=== PATIENT | female | born 1940 | race Caucasian/White ===

== ENCOUNTER → 2022-11-26 | Outpatient (CLI) | payer MEDICARE, SELFPAY ==
--- NOTE | 2022-11-26 10:00 | ART_ITS ---
Reason For Study: PAD Procedure A bilateral lower extremity continuous wave Doppler with analog waveform analysis,segmental pressures,and ankle brachial indexes with exercise. Left Segmental Pressures Left brachial= 143mmHg. Left posterior tibial artery = 163mmHg. Left dorsalis pedis artery = 158mmHg. Left digit = 100 mmHg. The left dorsalis pedis waveforms are triphasic. The left posterior tibial artery waveforms are triphasic. Right Segmental Pressures Right brachial= 139mmHg. Right posterior tibial artery = 175mmHg. Right dorsalis pedis artery = 141mmHg. Right digit = 99 mmHg. The right dorsalis pedis waveforms are triphasic. The right posterior tibial artery waveforms are triphasic. Indices The right ankle brachial index by the dorsalis pedis is 0.99. The right ankle brachial index by the posterior tibial artery is 1.22. The right digital-brachial index is 0.69. The left ankle brachial index by the dorsalis pedis is 1.10. The left ankle brachial index by the posterior tibial artery is 1.14. The left digital-brachial index is 0.70. VL/Lower Ext Art Exam w/ Exercise Interpretation Summary Normal at rest with bilateral triphasic flow and NADIYA 1.22 and 1.14. Ordering Physician: Miranda Thompson Referring Physician: Miranda Thompson M.D. Performed By: Heide Saini RVT
== END | disposition home or self-care (01) ==
PROVIDERS: PCP Internal Medicine; Referring Provider Internal Medicine; Visit Provider Internal Medicine
DX: I73.9 Peripheral vascular disease, unspecified (principal)
CPT/HCPCS: 93924

== ENCOUNTER → 2025-01-09 | Outpatient (CLI) | payer MEDICARE, SELFPAY ==
[2025-01-09 15:08] LABS: Absolute Lymphocyte Count 2.16 X10^3/uL (0.83-4.51); Absolute Neutrophil Count 4.6 X10^3/uL (2.0-7.7); Basophil# 0.05 X10^3/uL; Basophil% 0.7 % (0-1); Eosinophil# 0.11 X10^3/uL; Eosinophils% 1.5 % (0-5); Hematocrit 41.2 % (37-47); Hemoglobin 13.6 g/dL (12.0-15.0); Lymphocyte # 2.16 X10^3/ul (0.83-4.51); Lymphocyte % 29.5 % (19-41); Mean Corpuscular Hgb 29.6 pg (27.0-32.0); Mean Corpuscular Volume 89.8 fL (81-99); Mean Platelet Vol. 11.2 fl (6.2-12.0); Monocyte# 0.36 X10^3/uL; Monocyte% 4.9 % (0-10); NRBC Flagged by Analyzer 0 % (0-5); Neutrophil # 4.62 X10^3/uL (2.7-7.7); Neutrophil % 63.1 % (47-70); Platelet Count 209 K/mm3 (150-450); RBC Distribution Width SD 45.9 fl (35.1-43.9); Red Blood Count 4.59 M/mm3 (4.2-5.4); White Blood Count 7.3 K/mm3 (4.4-11.0)
[2025-01-09 18:57] LABS: ALB/GLOB Ratio 1.4 RATIO (0.9-2.4); AST(SGOT) 20 U/L (<=31); Alanine Aminotransfer ALT/SGPT 17 U/L (<=34); Albumin, Serum 4.5 g/dL (3.4-4.8); Alkaline Phosphatase 103 U/L (35-104); Anion Gap 14 (5-15); BUN 20 mg/dL (4-19); BUN/Creat Ratio 28.6 RATIO (10-20); Calcium,Total 9.9 mg/dL (7.6-11.0); Chloride 101 mmol/L (98-108); Cholesterol 185 mg/dL (<=200); EST Glomerular Filtration Rate 86 (>60); Globulin 3.3 g/dL (2.2-4.2); Glucose 102 mg/dL (70-99); High Density Lipoprotein 54 mg/dL; Low Density Lipoprotein Calc. 110 mg/dL; Potassium 4.1 mmol/L (3.3-5.1); Protein, Total 7.9 g/dL (5.9-8.4); Sodium Level 138 mmol/L (133-145); Total Bilirubin 0.89 mg/dL (0.00-1.30); Triglycerides 107 mg/dL; Very Low Density Lipoprotein 21 mg/dL (5-40); cholesterol:hdl ratio screen 3.45
[2025-01-09 19:03] LABS: Vitamin D,25 Hydroxy 36.5 ng/mL (30-100)
== END | disposition home or self-care (01) ==
LOC: BFHLAB 13:44
PROVIDERS: PCP Internal Medicine; Visit Provider Nurse Practitioner Family
DX: I10 Essential (primary) hypertension (principal); E55.9 Vitamin D deficiency, unspecified; E78.5 Hyperlipidemia, unspecified
CPT/HCPCS: 36415; 80053; 80061; 82306; 85025

== ENCOUNTER 2025-03-30 21:48 | Emergency (ER) | payer MEDICARE, SELFPAY ==
[2025-03-30 21:48] VITALS: BP 211/95; PULSE 85; RESP 18; TEMP 36.5; O2SAT 95; BMI 29.6
[2025-03-30 22:52] LABS: Hematocrit 41.5 % (37-47); Hemoglobin 14.0 g/dL (12.0-15.0); Immature Granulocytes Count 0.080 X10^3/uL (0.0-0.0); Mean Corp Hgb Conc 33.7 g/dL (32-36); Mean Corpuscular Volume 87.9 fL (81-99); Mean Platelet Vol. 10.8 fl (6.2-12.0); NRBC Flagged by Analyzer 0 % (0-5); Platelet Count 222 K/mm3 (150-450); RBC Distribution Width CV 14.1 % (11.6-14.6); RBC Distribution Width SD 45.4 fl (35.1-43.9); Red Blood Count 4.72 M/mm3 (4.2-5.4); White Blood Count 11.1 K/mm3 (4.4-11.0)
[2025-03-30] MEDS: 0.9% Normal Saline (1000mL) 1,000 ML 999 ML IV (22:52)
--- OUTSIDE RECORDS SUMMARY | 2025-03-30 22:56 | XMS RPT_ITS | CCD ---
Author Organization [facility] Care Team Providers Care Bridge Design Engineer Name Role Phone Miranda Lama Unavailable Gravius, Alannah Unavailable Unavailable Messenger, Sharifa Unavailable Unavailable Unavailable Unavailable Maximiliano Lamaeen Unavailable Raheem Ramos Unavailable Gravius, Alannah Unavailable Unavailable Long, Sandra L Unavailable Unavailable Messenger, Sharifa Unavailable Unavailable Unavailable Unavailable Raheem Ramos Unavailable Danika King Unavailable Unavailable Messenger, Sharifa Unavailable Unavailable Gravius, Alannah Unavailable Unavailable Kelby DO Miranda Unavailable Tucker Ramos Unavailable Richard RAGSDALE, Dr. Raheem Jones Unavailable Megha Hill MA Unavailable Unavailable Cross BOILERMAKER FITTER, Danika Unavailable Unavailable Zoë BOILERMAKER FITTER, Ginna Unavailable Unavailable Messenger RN, Sharifa Unavailable Unavailable Gravius CARE TRANSPORT NURSE, Alannah Unavailable Unavailable Unavailable Unavailable KELBY TOLEDO, DR JEAN Primary Care Physician [phone] Miranda Lama DO Unavailable Vigo EDGARD, Kayela Unavailable Unavailable Miranda Lama DO Attending Unavailable Miranda Lama DO Referring Unavailable Miranda Lama DO Consulting Unavailable Ric RAGSDALE, Dr. Bernardo Unavailable Slarb BOILERMAKER FITTER, Ivon Unavailable Unavailable RIDER , DR GURJIT Jones Attending Unavailable KELBY TOLEDO, DR JEAN Primary Care Unavailab jammie POLANCO MD, DR NETTE Morrissey Attending Unavailabl e KELBY TOLEDO, DR JEAN Primary Care Unavailab jammie Lama DO, Dr. Jean Primary Care Provider [phone] Heather Joy Attending Provider [phone] Miranda Lama Primary Care Unavailable Heather Will Attending Unavailable Allergies Allergy Classification Reported Allergen(s) Allergy Type Date of Onset Reaction(s) Facility (20 sources) Penicillins; Translations: [Penicillins] allergy to substance 3 [facility] Work Phone: (3 sources) Penicillin; Translations: [penicillin] Drug Allergy [facility] (3 sources) Procaine; Translations: [procaine] Drug Allergy [facility] (3 sources) Tetanus immune globulin; Translations: [tetanus immune globulin] Drug Allergy [facility] (1 source) tetanus toxoid vaccine, inactivated Drug Allergy 3 [facility] (1 source) tetanus toxoid, adsorbed Drug allergy (disorder) 3 [facility] Repository Medications Current Medications Medication Drug Class(es) Dates Sig (Normalized) Sig (Original) cephalexin 500 mg oral capsule (2 sources) Cephalosporin Antibacterial Start: 02-13-2023 End: 02-18-2023 cephalexin 500 mg oral capsule Dose : 500 mg = 1 cap(s), Oral, BID, Take with a probiotic, X 5 day(s), # 10 cap(s), 0 Refill(s), 02/18/23 9:22:00 PM EDT, 69 Start Date: 02/13/23 Stop Date: 02/18/23 Status: Ordered clindamycin 300 mg oral capsule (1 source) Lincosamide Antibacterial Start: 02-14-2023 End: 02-21-2023 clindamycin 300 mg oral capsule Dose : 300 mg = 1 cap(s), Oral, q6hr, X 7 day(s), # 28 cap(s), 0 Refill(s), 02/21/23 12:15:00 PM EDT, 69 Start Date: 02/14/23 Stop Date: 02/21/23 Status: Ordered lisinopril 5 mg oral tablet (19 sources) Angiotensin Converting Enzyme Inhibitor Start: 04-27-2023 take 1 tablet by mouth once daily lisinopriL 5 mg oral tablet 1 (one) Tablet daily for 90 days Quantity: 90 {Tablet} Refills: 0 Ordered: 27-Apr-2023 Miranda Lama DO, DO, Kathleen Start : 27-Apr-2023 Active Start: 04-28-2022 take 1 tablet by [facility] once daily Lisinopril 5 MG Oral Tablet 1 (one) Tablet daily for 90 days Quantity: 90 {Tablet} Refills: 3 Ordered: 28-Apr-2022 Miranda Lama DO, DO, Kathleen Start : 28-Apr-2022 Active Start: 05-09-2021 take 1 tablet by [facility] once daily Lisinopril 5 MG Oral Tablet 1 (one) Tablet daily for 90 days Quantity: 90 {Tablet} Refills: 3 Ordered: 09-May-2021 Miranda Lama DO, DO, Kathleen Start : 09-May-2021 Active Start: 05-16-2020 take 1 tablet by [facility]m [facility] once daily Lisinopril 5 MG Oral Tablet 1 (one) Tablet daily for 90 days Quantity: 90 {Tablet} Refills: 3 Ordered: 16-May-2020 Miranda Lama DO, DO, Kathleen Start : 16-May-2020 Active Start: 04-18-2019 take 1 tablet by [facility]m [facility] once daily Lisinopril 10 MG Oral Tablet 1 (one) Tablet daily for 90 days Quantity: 90 {Tablet} Refills: 3 Ordered: 18-Apr-2019 Miranda Lama DO, DO, Kathleen Start : 18-Apr-2019 Active Start: 07-12-2013 take 1 tablet by [facility]m [facility] once daily Lisinopril 10 MG Oral Tablet 1 (one) Tablet daily for 90 days Quantity: 90 {Tablet} Refills: 3 Ordered: 22-Mar-2018 Miranda Lama DO, DO, Kathleen Start : 22-Mar-2018 Active Completed/Discontinued Medications Medication Drug Class(es) Dates Sig (Normalized) Sig (Original) ascorbic acid 60 mg / beta carotene 5000 unt / copper sulfate 40 mg / dl-alpha tocopheryl acetate 30 unt / sodium selenite 0.04 mg / zinc oxide 40 mg oral tablet (4 sources) Vitamin C Start: 07-11-2014 End: 05-05-2018 take 1 tablet by mouth once daily Centrum Silver Oral Tablet 1 (one) Tablet daily for 360 days Refills: 0 Ordered: 05-May-2018 Giovanni RENEFernandoin Start : 11-Jul-2014 End : 05-May-2018 Discontinued biotin 10 mg oral capsule (18 sources) Start: 07-11-2014 End: 05-05-2018 take 1 capsule by mouth once daily BIOTIN ULTRA STRENGTH, 10MG (Oral Capsule) 1 (one) Capsule daily for 360 days Refills: 0 Ordered: 05-May-2018 Kianna Sanz Start : 11-Jul-2014 End : 05-May-2018 Discontinued Comments: This order discontinued per [facility]. Comment on above: This order discontin ued per [facility]. Calcium-Magnesium -Zinc (2 sources) Calcium-Magnesiu m- Zinc 1000-400-15 MG Oral Tablet (1000-400-15 MG) Active Calcium-Magnesium -Zinc 1000-400-15 MG Oral Tablet (16 sources) Calcium-Magnesiu m- Zinc 1000-400-15 MG Oral Tablet (1000-400-15 MG) Active Centrum Silver (2 sources) Start: 07-11-2014 End: 05-05-2018 take 1 tablet by mouth once daily Centrum Silver Oral Tablet 1 (one) Tablet daily for 360 days Refills: 0 Ordered: 05-May-2018 Alannah Davila Start : 11-Jul-2014 End : 05-May-2018 Discontinued Centrum Silver Oral Tablet (12 sources) Start: 07-11-2014 End: 05-05-2018 take 1 tablet by mouth once daily Centrum Silver Oral Tablet 1 (one) Tablet daily for 360 days Refills: 0 Ordered: 05-May-2018 Alannah Davila CMA Start : 11-Jul-2014 End : 05-May-2018 Discontinued Start: 07-11-2014 End: 05-05-2018 take 1 tablet by mouth once daily Centrum Silver Oral Tablet 1 (one) Tablet daily for 360 days Refills: 0 Ordered: 05-May-2018 Alannah Davila Start : 11-Jul-2014 End : 05-May-2018 Discontinued chromium picolinate 0.5 mg oral tablet (18 sources) Start: 07-11-2014 End: 05-08-2021 take 1 tablet by mouth once daily Chromium Picolinate Ultra 500 MCG Oral Tablet 1 (one) Tablet daily for 360 days Refills: 0 Ordered: 08-May-2021 Zoë ALONSOGinna Start : 11-Jul-2014 End : 08-May-2021 Inactive desoximetasone 2.5 mg/ml topical cream (18 sources) Corticosteroid Start: 07-11-2014 End: 07-19-2014 TOPICORT, 0.25% (External Cream) 1 (one) Cream bid for 0 days Quantity: 1 {Tube} Refills: 0 Ordered: 19-Jul-2014 Slacarley BOILERMAKER FITTERIvon Elliott Start : 11-Jul-2014 End : 19-Jul-2014 Inactive ergocalciferol 1.25 mg oral capsule (18 sources) Provitamin D2 Compound Start: 07-11-2014 take 1 capsule by mouth once daily VITAMIN D (ERGOCALCIFEROL), [id number] (Oral Capsule) 1 (one) Capsule daily for 450 days Refills: 0 Ordered: 11-Jul-2014 Kianna Sanz Start : 11-Jul-2014 Active ibuprofen 200 mg oral capsule (18 sources) Nonsteroidal Anti-inflammatory Drug Start: 07-09-2015 take 2 capsules by mouth four times daily ADVIL, 200MG (Oral Capsule) 2 (two) Capsule Capsule qid for 0 days Quantity: 60 {Capsule} Refills: 0 Ordered: 23-Jul-2015 aSndra Dyson RN Start : 09-Jul-2015 Active Lutein Vision Blend (2 sources) Start: 07-11-2014 End: 05-05-2018 take 1 capsule by mouth once daily Lutein Vision Blend Oral Capsule 1 (one) Capsule daily for 360 days Refills: 0 Ordered: 05-May-2018 Alannah Davila Start : 11-Jul-2014 End : 05-May-2018 Discontinued Lutein Vision Blend Oral Capsule (16 sources) Start: 07-11-2014 End: 05-05-2018 take 1 capsule by mouth once daily Lutein Vision Blend Oral Capsule 1 (one) Capsule daily for 360 days Refills: 0 Ordered: 05-May-2018 Alannah Davila CMA Start : 11-Jul-2014 End : 05-May-2018 Discontinued Start: 07-11-2014 End: 05-05-2018 take 1 capsule by mouth once daily Lutein Vision Blend Oral Capsule 1 (one) Capsule daily for 360 days Refills: 0 Ordered: 05-May-2018 Alannah Davila Start : 11-Jul-2014 End : 05-May-2018 Discontinued vit with calcium-iron fum-folic acid 29 mg-1 mg-500 mg tablet (oral) (4 sources) vit wit h calcium-iron fum-folic acid 29 mg-1 mg-500 mg tablet (oral) Every 2 days. (29-1-500 mg) Inactive Vitamin oral tablet (4 sources) Vitamin oral tablet Every 2 days. Active triamcinolone acetonide 1 mg/ml topical cream (18 sources) Corticosteroid Start: 05-08-2021 Triamcinolone Acetonide 0.1 % External Cream 1 (one) Cream bid for 30 days Quantity: 80 {Gram} Refills: 1 Ordered: 08-May-2021 Miranda Lama DO, DO, Kathleen Start : 08-May-2021 Active Start: 07-19-2014 TRIAMCINOLONE ACETONIDE, 0.1% (External Cream) 1 (one) Cream Cream bid for 0 days Quantity: 80 {Gram} Refills: 0 Ordered: 19-Jul-2014 Ivon Ramos LPN Start : 19-Jul-2014 Active Vitamin B Complex-C (2 sources) Start: 07-11-2014 take 1 capsule by mouth once daily VITAMIN B COMPLEX-C (Oral Capsule) 1 (one) Capsule daily for 360 days Refills: 0 Ordered: 11-Jul-2014 Umu FRANKSKianna Start : 11-Jul-2014 Active VITAMIN B COMPLEX-C (Oral Capsule) (16 sources) Start: 07-11-2014 take 1 capsule by mouth once daily VITAMIN B COMPLEX-C (Oral Capsule) 1 (one) Capsule daily for 360 days Refills: 0 Ordered: 11-Jul-2014 Umu Kianna Start : 11-Jul-2014 Active Start: 07-11-2014 take 1 capsule by mo [facility] once daily VITAMIN B COMPLEX-C (Oral Capsule) 1 (one) Capsule daily for 360 days Refills: 0 Ordered: 11-Jul-2014 Umu FRANKSKianna Start : 11-Jul-2014 Active Problems Active Problems Problem Classification Problem Date Documented Da te Episodic/Chronic Allergic reactions (20 sources) Eczema; Translations: [Eczema] 05-05-2018 Episodic Comment on above: Saw Dr. Carnes put on cream and cedafil cleanser to wash body, rash resolved Conditions associated with dizziness or vertigo (20 sources) Dizziness and giddiness; Translations: [Dizzy spells] 05-05-2018 Episodic Diabetes mellitus without complication (20 sources) Hyperglycemia; Translations: [Hyperglycemia] 05-05-2018 Episodic Comment on above: last haic 5.3-- so w ill only ck annually last haic 5.4-- so w ill only ck annually Essential hypertension (20 sources) Benign hypertension; Translations: [Hypertension, benign] Onset: 01-12-2025 05-05-2018 Chronic Immunizations and screening for infectious disease (20 sources) Need for prophylactic vaccination and inoculation against influenza; Translations: [Needs influenza immunization] 05-20-2018 Episodic Nutritional deficiencies (20 sources) Vitamin D deficiency; Translations: [Vitamin D deficiency] 04-18-2019 Chronic Comment on above: resume 5K Open wounds of extremities (1 source) Laceration of finger without foreign body; Translations: [Laceration without foreign body of unspecified finger without damage to nail, initial encounter] Onset: 10-07-2021 Episodic Other connective tissue disease (20 sources) Swelling of lower limb; Translations: [Leg swelling symptom] Resolved: 11-23-2014 11-23-2014 Episodic Comment on above: neg Other connective tissue disease (20 sources) Pain in left lower limb; Translations: [Leg pain, left] Resolved: 11-23-2014 11-23-2014 Episodic Other connective tissue disease (1 source) Muscle spasm of cervical muscle of neck; Translations: [Other muscle spasm] 07-13-2013 Episodic Other endocrine disorders (20 sources) Hypoglycemia; Translations: [Hypoglycemia] 05-05-2018 Chronic Comment on above: eating more freq and avioding aviod white starch- including pasta , rice, bread, pototoes and sugar Other nutritional; endocrine; and metabolic disorders (20 sources) Body mass index 30+ - obesity; Translations: [BMI 30.0-30.9,adult] Resolved: 04-18-2019 05-05-2018 Chronic Other nutritional; endocrine; and metabolic disorders (10 sources) Overweight in adulthood with body mass index of 25 or more but less than 30; Translations: [BMI 29.0-29.9,adult] Resolved: 05-20-2018 06-25-2018 Episodic Other skin disorders (20 sources) Eruption; Translations: [Rash] Resolved: 11-23-2014 11-23-2014 Episodic Comment on above: anca neg got worse w ith topicort but better with old script of triamcinolone will renew this Peripheral and visceral atherosclerosis (6 sources) Peripheral vascular disease, unspecified; Translations: [PAD (peripheral artery disease)] 11-17-2022 Chronic Phlebitis; thrombophlebitis and thromboembolism (20 sources) Phlebitis of lower limb vein; Translations: [Phlebitis of leg] Resolved: 08-18-2016 02-09-2017 Episodic Residual codes; unclassified (20 sources) Needs influenza immunization; Translations: [Need for prophylactic vaccination and inoculation against influenza (Renamed from Need for immunization against influenza)] 05-20-2018 Episodic Residual codes; unclassified (20 sources) Influenza vaccination declined; Translations: [Influenza vaccination declined (Renamed from Refused influenza vaccine)] 05-27-2021 Episodic Residual codes; unclassified (20 sources) Non-smoker; Translations: [Non-smoker] 05-05-2018 Episodic Unclassified (20 sources) Breast neoplasm screening status; Translations: [Screening status] 05-05-2018 Episodic Comment on above: pt declined mamm and feels she doesnt need that ordered cologard 12/ 17 but didnt do and doesnt want to Unclassified (20 sources) Postmenopausal state; Translations: [Needs influenza immunization] 05-05-2018 Episodic Comment on above: last one 2018 last dexa 2018- she refused any more Unclassified (20 sources) Hypertension, benign Unclassified (20 sources) Varicose vein Unclassified (20 sources) Unclassified (20 sources) Non-smoker; Translations: [Non-smoker] 05-05-2018 Unclassified (13 sources) BMI 29.0-29.9,adult Unclassified (20 sources) Encounter for screening mammogram for breast cancer (Renamed from Encounter for screening mammogram for malignant neoplasm of breast) Unclassified (20 sources) Postmenopausal (Renamed from Postmenopausal status) Unclassified (20 sources) Encounter for screening for malignant neoplasm of colon (Renamed from Special screening for malignant neoplasms, colon); Translations: [Screening status] 05-05-2018 Comment on above: ordered cologard 12/ 17 Unclassified (20 sources) BMI 30.0-30.9,adult Unclassified (13 sources) Dizzy spells Unclassified (13 sources) BMI 32.0-32.9,adult Unclassified (13 sources) Hypertension,benign( 401.1) Unclassified (20 sources) Influenza vaccination declined; Translations: [Influenza vaccination declined (Renamed from Refused influenza vaccine)] 05-20-2018 Unclassified (16 sources) BMI 31.0-31.9,adult Unclassified (11 sources) Varicose vein of leg Varicose veins of lower extremity (20 sources) Venous varices; Translations: [Varicose veins of lower extremity] 05-05-2018 Episodic Comment on above: reminded her to wear support stockign Past or Other Problems Problem Classification Problem Date Documented Da te Episodic/Chronic Other nutritional; endocrine; and metabolic disorders (4 sources) Body mass index 25-29 - overweight; Translations: [BMI 29.0-29.9,adult] Resolved: 05-20-2018 06-25-2018 Chronic Other nutritional; endocrine; and metabolic disorders (1 source) Body mass index 25-29 - overweight; Translations: [BMI 29.0-29.9,adult] Resolved: 05-20-2018 06-25-2018 Episodic Residual codes; unclassified (7 sources) Increased body mass index; Translations: [BMI 29.0-29.9,adult] Resolved: 05-20-2018 06-25-2018 Episodic Unclassified (20 sources) Unspecified Diagnosis 08-18-2016 Unclassified (20 sources) Rash Unclassified (13 sources) Phlebitis of leg Unclassified (13 sources) Leg pain, left Unclassified (20 sources) Patient encounter status; Translations: [Annual Medicare Phyiscal WITHOUT abnormal findings (Renamed from Encounter for general adult medical examination without abnormal findings)] 05-20-2018 Comment on above: pt declined mamm and feels she doesnt need that Unclassified (11 sources) Screening status; Translations: [Encounter for screening for malignant neoplasm of colon (Renamed from Special screening for malignant neoplasms, colon)] 05-20-2018 Comment on above: ordered cologard but didnt do and doesnt want to Unclassified (20 sources) Non-smoker; Translations: [Non-smoker] 05-20-2018 Unclassified (4 sources) Encounter for general adult medical examination with abnormal findings Results Test Name Value Interpretation Reference Range Facility Absolute lymphocyte countOrd ered By: [facility] on 01-09-2025 Lymphocytes Auto (Unsp spec) [#/Vol] 2.16 10*3/uL 0.83-4.51 [facility] Absolute neutrophil countOrd ered By: [facility] on 01-09-2025 Neutrophils (Bld) [#/Vol] 4.6 10*3/uL 2.0-7.7 [facility] Anion gap in Serum or Plasma Ordered By: [facility] on 01-09-2025 Anion gap [Moles/Vol] 14 mmol/L 5-15 [facility] Automated lymphocyte count a s percentage of total leukocytesOrdered By: [facility] on 01-09-2025 Lymphocytes/100 WBC Auto (Unsp spec) 29.5 % - [facility] BUN/creatinine ratioOrdered By: [facility] on 01-09-2025 Urea nitrogen/Creatinine [Mass ratio] 28.6 mg/mg High 10- [facility] Basophil percentageOrdered B y: [facility] on 01-09-2025 Basophils/100 WBC (Bld) 0.7 % 0-1 [facility] Bilirubin, totalOrdered By: [facility] on 01-09-2025 Bilirubin [Mass/Vol] 0.89 mg/dL 0.00-1.30 [facility] CBC W/Diff, Automatedon 12-13 Absolute Lymph 2.16 X10 3/uL Normal 0.83-4.51 [facility] Comment on above: Performed By: #### L 506.1001, L500.4050, L100.0100, L500.4100 #### [facility] [address] [place], [address] Absolute Neut 4.6 X10 3/uL Normal 2.0-7.7 [facility] Comment on above: Performed By: #### L 506.1001, [id number], L100.0100, L500.4100 #### [facility] [address] [place], [address] Basophils/100 WBC (Bld) 0.7 % Normal 0-1 [facility] Comment on above: Performed By: #### L 506.1001, [id number], L100.0100, L500.4100 #### [facility] [address] [place], [address] Eosinophils/100 WBC (Bld) 1.5 % Normal 0-5 [facility] Comment on above: Performed By: #### L 506.1001, [id number], L100.0100, L500.4100 #### [facility] [address] [place], [address] Erythrocyte distribution width (RBC) [Ratio] 14.0 % Normal 11.6-14.6 [facility] Comment on above: Performed By: #### L 506.1001, [id number], L100.0100, L500.4100 #### [facility] [address] [place], [address] Hematocrit (Bld) [Volume fraction] 41.2 % Normal 37-47 [facility] Comment on above: Performed By: #### L 506.1001, L500.4050, L100.0100, L500.4100 #### [facility] [address] [place], [address] Hemoglobin (Bld) [Mass/Vol] 13.6 g/dL Normal 12.0-15.0 [facility] Comment on above: Performed By: #### L 506.1001, L500.4050, L100.0100, L500.4100 #### [facility] [address] [place], [address] IG% 0.300 Normal 0.0-0.9 [facility] Comment on above: Result Comment: IG% - Immature Granulocytes (promyelocytes, myelocytes and metamyelocytes) > 1% indicates that a LEFT SHIFT is Present. Performed By: #### L 506.1001, L500.4050, L100.0100, L500.4100 #### [facility] [address] [place], [address] Lymphocytes/100 WBC (Bld) 29.5 % Normal 19-41 [facility] Comment on above: Performed By: #### L 506.1001, L500.4050, L100.0100, L500.4100 #### [facility] [address] [place], [address] MCH (RBC) [Entitic mass] 29.6 pg Normal 27.0-32.0 [facility] Comment on above: Performed By: #### L 506.1001, L500.4050, L100.0100, L500.4100 #### [facility] [address] [place], [address] MCHC (RBC) [Mass/Vol] 33.0 g/dL Normal 32-36 [facility] Comment on above: Performed By: #### L 506.1001, [id number], L100.0100, L500.4100 #### [facility] [address] [place], [address] MCV (RBC) [Entitic vol] 89.8 fL Normal 81-99 [facility] Comment on above: Performed By: #### L 506.1001, [id number], L100.0100, L500.4100 #### [facility] [address] [place], [address] Monocytes/100 WBC (Bld) 4.9 % Normal 0-10 [facility] Comment on above: Performed By: #### L 506.1001, [id number], L100.0100, L500.4100 #### [facility] [address] [place], [address] Neutrophils/100 WBC (Bld) 63.1 % Normal 47-70 [facility] Comment on above: Performed By: #### L 506.1001, [id number], L100.0100, L500.4100 #### [facility] [address] [place], [address] Nucleated RBC (Bld) [#/Vol] 0 10*3/uL Normal 0-5 [facility] Comment on above: Performed By: #### L 506.1001, L500.4050, L100.0100, L500.4100 #### [facility] [address] [place], [address] Platelet mean volume (Bld) [Entitic vol] 11.2 fL Normal 6.2-12.0 [facility] Comment on above: Performed By: #### L 506.1001, L500.4050, L100.0100, L500.4100 #### [facility] [address] [place], [address] Platelets (Bld) [#/Vol] 209 10*3/uL Normal 150-450 [facility] Comment on above: Performed By: #### L 506.1001, L500.4050, L100.0100, L500.4100 #### [facility] [address] [place], [address] RBC (Bld) [#/Vol] 4.59 10*6/uL Normal 4.2-5.4 [facility] Comment on above: Performed By: #### L 506.1001, L500.4050, L100.0100, L500.4100 #### [facility] [address] [place], [address] RDW SD 45.9 fl High 35.1-43.9 [facility] Comment on above: Performed By: #### L 506.1001, L500.4050, L100.0100, L500.4100 #### [facility] [address] [place], [address] WBC (Bld) [#/Vol] 7.3 10*3/uL Normal 4.4-11.0 [facility] Comment on above: Performed By: #### L 506.1001, L500.4050, L100.0100, L500.4100 #### [facility] [address] [place], [address] Calculated very low density lipoprotein (VLDL) cholesterol measurementOrdered By: Heather Will on 01-09-2025 Calculated very low density lipoprotein (VLDL) cholesterol measurement 21 mg/dL 5-40 [facility] Carbon dioxide, total [Moles /volume] in Central venous bloodOrdered By: Heather Will on 01-09-2025 CO2 [Moles/Vol] 24.0 mmol/L 21.0-32.0 [facility] Chloride assayOrdered By: Ra matthew Will on 01-09-2025 Chloride [Moles/Vol] 101 mmol/L 98-108 [facility] Comprehensive Metabolic Prof ilon 01-09-2025 Albumin [Mass/Vol] 4.5 g/dL Normal 3.4-4.8 [facility] Comment on above: Performed By: #### L 506.1001, L500.4050, L100.0100, L500.4100 #### [facility] [address] [place], [address] Albumin/Globulin [Mass ratio] 1.4 {ratio} Normal 0.9-2.4 [facility] Comment on above: Performed By: #### L 506.1001, L500.4050, L100.0100, L500.4100 #### [facility] [address] [place], [address] ALK PHOS 103 U/L Normal 35-104 [facility] Comment on above: Performed By: #### L 506.1001, L500.4050, L100.0100, L500.4100 #### [facility] [address] [place], [address] ALT [Catalytic activity/Vol] 17 U/L Normal <=34 [facility] Comment on above: Performed By: #### L 506.1001, L500.4050, L100.0100, L500.4100 #### [facility] [address] [place], [address] AST [Catalytic activity/Vol] 20 U/L Normal <=31 [facility] Comment on above: Performed By: #### L 506.1001, L500.4050, L100.0100, L500.4100 #### [facility] [address] [place], [address] Bilirubin [Mass/Vol] 0.89 mg/dL Normal 0.00-1.30 [facility] Comment on above: Performed By: #### L 506.1001, L500.4050, L100.0100, L500.4100 #### [facility] [address] [place], [address] BUN/CRE 28.6 RATIO High 10-20 [facility] Comment on above: Performed By: #### L 506.1001, L500.4050, L100.0100, L500.4100 #### [facility] [address] [place], [address] Calcium [Mass/Vol] 9.9 mg/dL Normal 7.6-11.0 [facility] Comment on above: Performed By: #### L 506.1001, L500.4050, L100.0100, L500.4100 #### [facility] [address] [place], [address] Chloride [Moles/Vol] 101 mmol/L Normal 98-108 [facility] Comment on above: Performed By: #### L 506.1001, L500.4050, L100.0100, L500.4100 #### [facility] [address] [place], [address] CO2 [Moles/Vol] 24.0 mmol/L Normal 21.0-32.0 [facility] Comment on above: Performed By: #### L 506.1001, L500.4050, L100.0100, L500.4100 #### [facility] [address] [place], [address] Creatinine [Mass/Vol] 0.70 mg/dL Normal 0.70-1.20 [facility] Comment on above: Performed By: #### L 506.1001, L500.4050, L100.0100, L500.4100 #### [facility] [address] [place], [address] GAP 14 Normal 5-15 [facility] Comment on above: Performed By: #### L 506.1001, L500.4050, L100.0100, L500.4100 #### [facility] [address] [place], [address] GFR/1.73 sq M.predicted among non-blacks MDRD (S/P/Bld) [Vol rate/Area] 86 mL/min/{1.73_m2} Normal >60 [facility] Comment on above: Result Comment: mL/m in/1.73m2 CKD-EPI Creatinine Equation (2020) Performed By: #### L 506.1001, L500.4050, L100.0100, L500.4100 #### [facility] [address] [place], [address] Globulin (S) [Mass/Vol] 3.3 g/dL Normal 2.2-4.2 [facility] Comment on above: Performed By: #### L 506.1001, L500.4050, L100.0100, L500.4100 #### [facility] [address] [place], [address] Glucose [Mass/Vol] 102 mg/dL High 70-99 [facility] Comment on above: Performed By: #### L 506.1001, L500.4050, L100.0100, L500.4100 #### [facility] [address] [place], [address] Potassium [Moles/Vol] 4.1 mmol/L Normal 3.3-5.1 [facility] Comment on above: Performed By: #### L 506.1001, L500.4050, L100.0100, L500.4100 #### [facility] [address] [place], [address] Sodium [Moles/Vol] 138 mmol/L Normal 133-145 [facility] Comment on above: Performed By: #### L 506.1001, L500.4050, L100.0100, L500.4100 #### [facility] [address] [place], [address] T PROT 7.9 g/dL Normal 5.9-8.4 [facility] Comment on above: Performed By: #### L 506.1001, L500.4050, L100.0100, L500.4100 #### [facility] [address] [place], [address] Urea nitrogen [Mass/Vol] 20 mg/dL High 4-19 [facility] Comment on above: Performed By: #### L 506.1001, L500.4050, L100.0100, L500.4100 #### [facility] [address] [place], [address] Eosinophil percentageOrdered By: Heather Will on 01-09-2025 Eosinophils/100 WBC (Bld) 1.5 % 0-5 [facility] Erythrocyte distribution wid th ratioOrdered By: Heather Will on 01-09-2025 Erythrocyte distribution width (RBC) [Ratio] 14.0 % 11.6-14.6 [facility] Erythrocyte distribution wid th standard deviationOrdered By: Heather Will on 01-09-2025 Erythrocyte distribution width (RBC) [Ratio] 45.9 fl High 35.1-43.9 [facility] Glomerular filtration rate ( GFR) estimation/1.73 sq m using serum, plasma, or whole bOrdered By: Heather Will on 01-09-2025 GFR/1.73 sq M.predicted among non-blacks MDRD (S/P/Bld) [Vol rate/Area] 86 mL/min/{1.73_m2} >60 [facility] Comment on above: mL/min/1.73m2 CKD-EP I Creatinine Equation (2020) Hematocrit Auto (Bld) [Volum e fraction]Ordered By: Heather Will on 01-09-2025 Hematocrit (Bld) [Volume fraction] 41.2 % 37-47 [facility] Hemoglobin measurementOrdere d By: Heather Will on 01-09-2025 Hemoglobin (Bld) [Mass/Vol] 13.6 g/dL 12.0-15.0 [facility] Immature granulocytes/100 WB C Auto (Bld)Ordered By: Heather Will on 01-09-2025 Immature granulocytes/100 WBC (Bld) 0.300 % 0.0-0.9 [facility] Comment on above: IG% - Immature Granu locytes (promyelocytes, myelocytes and metamyelocytes) > 1% indicates that a LEFT SHIFT is Present. LDL calc ser/plasOrdered By: Heather Will on 01-09-2025 Cholesterol in LDL [Mass/Vol] 110 mg/dL [facility] Comment on above: Zutkyaiqwa=935-908 m g/dL & Higher Qxvg=190 mg/dL or greater Laboratory - Chemistry and C hemistry - challengeOrdered By: Heather Will on 01-09-2025 AST [Catalytic activity/Vol] 20 U/L <32 [facility] Lipid Profileon 01-09-2025 CHOL:HDL 3.45 Normal [facility] Comment on above: Performed By: #### L 506.1001, L500.4050, L100.0100, L500.4100 #### [facility] [address] [place], [address] Cholesterol [Mass/Vol] 185 mg/dL Normal <=200 [facility] Comment on above: Result Comment: Chol esterol level, Desirable <200 mg/dL Borderline high cholesterol 200-239 mg/dL High cholesterol >=240 mg/dL Recommendations of the NCEP Adult Treatment Panel for the following risk-cutoff thresholds for the [place] population. Performed By: #### L 506.1001, L500.4050, L100.0100, L500.4100 #### [facility] [address] [place], [address] Cholesterol in HDL [Mass/Vol] 54 mg/dL Normal [facility] Comment on above: Result Comment: Stephanie onal Cholesterol Education Program (NCEP) guidelines: <40 mg/dL: Low HDL-cholesterol (major risk factor for CHD) >= 60 mg/dL: High HDL-cholesterol (negative risk factor for CHD) HDL-cholesterol is affected by a number of factors, e.g. smoking, exercise, hormones, sex and age. Performed By: #### L 506.1001, L500.4050, L100.0100, L500.4100 #### [facility] [address] [place], [address] Cholesterol in LDL [Mass/Vol] 110 mg/dL Normal [facility] Comment on above: Result Comment: Bord enybvo=383-934 mg/dL Higher Trul=468 mg/dL or greater Performed By: #### L 506.1001, L500.4050, L100.0100, L500.4100 #### [facility] [address] [place], [address] Cholesterol in VLDL [Mass/Vol] 21 mg/dL Normal 5-40 [facility] Comment on above: Performed By: #### L 506.1001, L500.4050, L100.0100, L500.4100 #### [facility] [address] [place], [place], [address] Triglyceride [Mass/Vol] 107 mg/dL Normal [facility] Comment on above: Result Comment: The drugs N-Acetylcysteine and Metamizole may falsely depress this assay. Normal range: <150 mg/dL Borderline High: 150-199 mg/dL High: 200-499 mg/dL Very High: >500 mg/dL Performed By: #### L 506.1001, L500.4050, L100.0100, L500.4100 #### [facility] [address] [place], [place], [address] MCV (mean corpuscular volume ) determinationOrdered By: Heather Will on 01-09-2025 MCV (RBC) [Entitic vol] 89.8 fL 81-99 [facility] Mean corpuscular hemoglobin (MCH) determinationOrdered By: Heather Will on 01-09-2025 MCH (RBC) [Entitic mass] 29.6 pg 27.0-32.0 [facility] Mean corpuscular hemoglobin concentration (MCHC) determinationOrdered By: Heather Will on 01-09-2025 MCHC (RBC) [Mass/Vol] 33.0 g/dL 32-36 [facility] Mean platelet volume determi nationOrdered By: Heather Will on 01-09-2025 Platelet mean volume (Bld) [Entitic vol] 11.2 fL 6.2-12.0 [facility] Monocyte percentageOrdered B y: Heather Will on 01-09-2025 Monocytes/100 WBC (Bld) 4.9 % 0-10 [facility] Neutrophil percentageOrdered By: Heather Will on 01-09-2025 Neutrophils/100 WBC (Bld) 63.1 % 47-70 [facility] Nucleated red blood cell per centageOrdered By: Heather Will on 01-09-2025 Nucleated RBC/100 WBC (Bld) [Ratio] 0 % 0-5 [facility] Platelet countOrdered By: Ra matthew Will on 01-09-2025 Platelets (Bld) [#/Vol] 209 10*3/uL 150-450 [facility] Potassium measurement (mass/ volume)Ordered By: Heather Will on 01-09-2025 Potassium (Unsp spec) [Mass/Vol] 4.1 mmol/L 3.3-5.1 [facility] RBC Auto (Bld) [#/Vol]Ordere d By: Heather Will on 01-09-2025 RBC (Bld) [#/Vol] 4.59 10*6/uL 4.2-5.4 [facility] Screening total cholesterol/ high density lipoprotein (HDL) cholesterol ratioOrdered By: Heather Will on 01-09-2025 Cholesterol.total/Cho lesterol in HDL [Mass ratio] 3.45 {ratio} [facility] Serum creatinine measurement (mass/volume)Ordered By: Heather Will on 01-09-2025 Creatinine [Mass/Vol] 0.70 mg/dL 0.70-1.20 [facility] Serum globulin measurementOr dered By: Heather Will on 01-09-2025 Globulin (S) [Mass/Vol] 3.3 g/dL 2.2-4.2 [facility] Serum glucose measurement (m ass/volume)Ordered By: Heather Will on 01-09-2025 Glucose [Mass/Vol] 102 mg/dL High 70-99 [facility] Serum or plasma alanine willams otransferase (ALT) measurementOrdered By: Heather Will on 01-09-2025 ALT [Catalytic activity/Vol] 17 U/L <35 [facility] Serum or plasma albumin cris urement (mass/volume)Ordered By: Heather Will on 01-09-2025 Albumin [Mass/Vol] 4.5 g/dL 3.4-4.8 [facility] Serum or plasma albumin/glob ulin mass ratioOrdered By: Heather Will 01-09-2025 Albumin/Globulin [Mass ratio] 1.4 {ratio} 0.9-2.4 [facility] Serum or plasma alkaline jacqueline sphatase measurementOrdered By: Heather Wlil on 01-09-2025 ALP [Catalytic activity/Vol] 103 U/L 35-104 [facility] Serum or plasma calcium cris urement (mass/volume)Ordered By: Heather Will on 01-09-2025 Calcium [Mass/Vol] 9.9 mg/dL 7.6-11.0 [facility] Serum or plasma cholesterol in HDL measurement (mass/volume)Ordered By: Heather Will on 01-09-2025 Cholesterol in HDL [Mass/Vol] 54 mg/dL >40 [facility] Comment on above: National Cholesterol Education Program (NCEP) guidelines:<40 mg/dL: Low HDL-cholesterol (major risk factor for CHD)>= 60 mg/dL: High HDL-cholesterol (negative risk factor for CHD)HDL-cholesterol is affected by a number of factors, e.g. smoking, exercise, hormones, sex and age. Serum or plasma cholesterol measurement (mass/volume)Ordered By: Heather Will on 01-09-2025 Cholesterol [Mass/Vol] 185 mg/dL <201 [facility] Comment on above: Cholesterol level, D esirable <200 mg/dLBorderline high cholesterol 200-239 mg/dLHigh cholesterol >=240 mg/dLRecommendations of the NCEP Adult Treatment Panel for the following risk-cutoff thresholds for the [place] population. Serum or plasma urea nitroge n measurement (mass/volume)Ordered By: Heather Will on 01-09-2025 Urea nitrogen [Mass/Vol] 20 mg/dL High 4-19 [facility] Sodium levelOrdered By: Jennifer Will on 01-09-2025 Sodium [Moles/Vol] 138 mmol/L 133-145 [facility] Total proteinOrdered By: Julisa Will on 01-09-2025 Protein [Mass/Vol] 7.9 g/dL 5.9-8.4 [facility] Triglycerides measurementOrd ered By: Heather Will on 01-09-2025 Triglyceride [Mass/Vol] 107 mg/dL <199 [facility] Comment on above: The drugs N-Acetylcy steine and Metamizole may falsely depress this assay. Normal range: <150 mg/dLBorderline High: 150-199 mg/dLHigh: 200-499 mg/dLVery High: >500 mg/dL Vitamin D,25 Hydroxyon 01-09 Vitamin D 25-OH 36.5 ng/mL Normal 30-100 [facility] Comment on above: Result Comment: Anni min D Status Deficiency: <20 ng/mL (50nmol/L) Insufficiency: 20-30 ng/mL (50-75 nmol/L) Sufficiency: 30-100 ng/mL (75-250 nmol/L) Toxicity: >100 ng/mL (>250 nmol/L) Performed By: #### L 506.1001, L500.4050, L100.0100, L500.4100 #### [facility] [address] [place], [address] White blood cell (WBC) count Ordered By: Heather Will on 01-09-2025 WBC (Bld) [#/Vol] 7.3 10*3/uL 4.4-11.0 [facility] CNOVon 05-23-2021 CNOV Office Visit (AGMIL) ----- MEGHAN ODONNELL ([id number]) 1940 F Date Time Provider Department 05/23/21 11:45 AM TUCKER RAMOS During your visit today, we recorded the following information about you: Referring Provider: MIRANDA LAMA [[id number]] Allergies As of Date: 05/23/2021 Noted Allergy Reaction PENICILLINS 09/29/2006 1 - Mental Status Change TETANUS VACCINES AND TOXOID 09/29/2006 4 - Hives Date Reviewed: 08/12/2013 Reviewed by: Ivon Macario RN - Fully Assessed Reason for Visit: Primary Visit Diagnosis: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 - triamcinolone acetonide (KENALOG) 0.1 % cream Apply to affected area twice daily. - lisinopril (ZESTRIL, PRINIVIL) 20 mg tablet Take 1 tablet by mouth once daily. - Cholecalciferol, Vitamin D3, 2,000 unit tab Take 1 tablet by mouth once daily. - Vitamin B Comp and C No.4 (SUPER B COMPLEX + C) 150 mg Tab Take 1 tablet by mouth once daily. - Baxsu-8-ORN-EPA-Fish Oil 1,200 (144-216) mg cap Take 1 tablet by mouth once daily. - Ca Carb-vit D3-mag ox-zinc ox (JEANNE MAG ZINC + D3) 333 mg calcium -133 unit-133mg Tab Take 1 tablet by mouth once daily. 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 OA (osteoarthritis) [M19.90] 07/28/2013 Vitamin D deficiency [E55.9] 07/29/2013 Encounter Status:Closed by SAM DENIA BOWEN on 08/06/21 Normal [facility] CALCIFEDIOL (81850)Ordered B y: Flower Cutter on 05-08-2021 25-hydroxyvitamin D [Mass/Vol] 25.4 ng/mL Abnormal 30.0-100.0 [facility]; [facility] Work Phone: Comment on above: Vitamin D deficiency has been defined by the Lancing ofMedicine and an Endocrine Society practice guideline as alevel of serum 25-OH vitamin D less than 20 ng/mL (1,2).The Endocrine Society went on to further define vitamin Dinsufficiency as a level between 21 and 29 ng/mL (2).1. IOM (Lancing of Medicine). 2010. Dietary reference intakes for calcium and D. [place]: The National Academies Press.2. Martha MF, Eva NC, Eitan-Tunde RODRIGUEZ, et al. Evaluation, treatment, and prevention of vitamin D deficiency: an Endocrine Society clinical practice guideline. JCEM. 2010; 96(7):1911-30. PATIENT WAS FASTINGP ERFORMED BY: CB [facility] Quzlgl[address] RoadDuUNC Health Nash [id number] CBC W/AUTO DIFF WBC (43359)O rdered By: Flower Cutter on 05-08-2021 Basophils (Bld) [#/Vol] 0.1 10*3/uL Normal 0.0-0.2 [facility]; [facility] Work Phone: Comment on above: PATIENT WAS FASTINGP ERFORMED BY: JC LabTamir Parkinson[address]Dublin [place] [id number] Basophils/100 WBC (Bld) 1 % Normal [facility]; [facility] Work Phone: Comment on above: PATIENT WAS FASTINGP ERFORMED BY: [facility] Ivsyfm4629 [address]Dublin [place] [id number] Eosinophils (Bld) [#/Vol] 0.2 10*3/uL Normal 0.0-0.4 [facility]; [facility] Work Phone: Comment on above: PATIENT WAS FASTINGP ERFORMED BY: [facility] Frvedi8948 [address]Dublin [place] [id number] Eosinophils/100 WBC (Bld) 3 % Normal [facility]; [facility] Work Phone: Comment on above: PATIENT WAS FASTINGP ERFORMED BY: [facility] Umicym[address] [facility] [place] [id number] Erythrocyte distribution width (RBC) [Ratio] 14.1 % Normal 11.7-15.4 [facility]; [facility] Work Phone: Comment on above: PATIENT WAS FASTINGP ERFORMED BY: [facility] Teailu88[address]blin [place] [id number] Hematocrit (Bld) [Volume fraction] 36.9 % Normal 34.0-46.6 [facility]; [facility] Work Phone: Comment on above: PATIENT WAS FASTINGP ERFORMED BY: [facility] Yoshua1980 [address]ublin [place] [id number] Hemoglobin (Bld) [Mass/Vol] 11.9 g/dL Normal 11.1-15.9 [facility]; [facility] Work Phone: Comment on above: PATIENT WAS FASTINGP ERFORMED BY: [facility] Msoozo4209 [facility] [id number] Immature granulocytes (Bld) [#/Vol] 0.0 10*3/uL Normal 0.0-0.1 [facility]; [facility] Work Phone: Comment on above: PATIENT WAS FASTINGP ERFORMED BY: JC Bartlettlin6370 [facility] [id number] Immature granulocytes/100 WBC (Bld) 0 % Normal [facility]; [facility] Work Phone: Comment on above: PATIENT WAS FASTINGP ERFORMED BY: JC Gonzalez Ajxbpx2056 [facility] [id number] Lymphocytes (Bld) [#/Vol] 1.8 10*3/uL Normal 0.7-3.1 [facility]; [facility] Work Phone: Comment on above: PATIENT WAS FASTINGP ERFORMED BY: JC Bartlettlin6370 [facility] [id number] Lymphocytes/100 WBC (Bld) 25 % Normal [facility]; [facility] Work Phone: Comment on above: PATIENT WAS FASTINGP ERFORMED BY: JC Bartlettlin6370 [facility] [id number] MCH (RBC) [Entitic mass] 29.3 pg Normal 26.6-33.0 [facility]; [facility] Work Phone: Comment on above: PATIENT WAS FASTINGP ERFORMED BY: JC Gonzalez Hrlfod8233 [facility] [id number] MCHC (RBC) [Mass/Vol] 32.2 g/dL Normal 31.5-35.7 [facility] prehensive Internal [facility]; [facility] Work Phone: Comment on above: PATIENT WAS FASTINGP ERFORMED BY: JC Bartlettlin6370 [facility] [id number] MCV (RBC) [Entitic vol] 91 fL Normal 79-97 [facility]; [facility] Work Phone: Comment on above: PATIENT WAS FASTINGP ERFORMED BY: JC Bartlettlin6[address] [place] [id number] Monocytes (Bld) [#/Vol] 0.4 10*3/uL Normal 0.1-0.9 [facility]; [facility] Work Phone: Comment on above: PATIENT WAS FASTINGP ERFORMED BY: JC LabElena Zpptui16[address]Dublin [place] [id number] Monocytes/100 WBC (Bld) 5 % Normal [facility]; [facility] Work Phone: Comment on above: PATIENT WAS FASTINGP ERFORMED BY: [facility] Cwbnzf5[address]Dublin [place] [id number] Neutrophils (Bld) [#/Vol] 4.8 10*3/uL Normal 1.4-7.0 [facility]; [facility] Work Phone: Comment on above: PATIENT WAS FASTINGP ERFORMED BY: LabElena Ucepjm0789 [address]Dublin [place] [id number] Neutrophils/100 WBC (Bld) 66 % Normal [facility]; [facility] Work Phone: Comment on above: PATIENT WAS FASTINGP ERFORMED BY: LabTamir BartlettFomiay7041 [address]Dublin [place] [id number] Platelets (Bld) [#/Vol] 213 10*3/uL Normal 150-450 [facility]; [facility] Work Phone: Comment on above: PATIENT WAS FASTINGP ERFORMED BY: [facility] Vrbywp5308 [address]Dublin [place] [id number] RBC (Bld) [#/Vol] 4.06 10*6/uL Normal 3.77-5.28 Compr ehensive [facility]; [facility] Work Phone: Comment on above: PATIENT WAS FASTINGP ERFORMED BY: JC [facility] Rqspgk98[address]Dublin [place] [id number] WBC (Bld) [#/Vol] 7.3 10*3/uL Normal 3.4-10.8 Compre [facility]; [facility] Work Phone: Comment on above: PATIENT WAS FASTINGP ERFORMED BY: CB [facility] Royhma6[address]Dublin [place] [id number] LIPID PANEL ([id number])Ordered B y: Flower Cutter on 05-08-2021 Cholesterol [Mass/Vol] 180 mg/dL Normal 100-199 [facility]; [facility] Work Phone: Comment on above: PATIENT WAS FASTINGP ERFORMED BY: CB [facility] Bruscj5503 [address]Dublin [place] [id number] Cholesterol in HDL [Mass/Vol] 44 mg/dL Normal [facility]; [facility] Work Phone: Comment on above: PATIENT WAS FASTINGP ERFORMED BY: CB [facility] Cgrxra9[address]Dublin [place] [id number] Triglyceride [Mass/Vol] 86 mg/dL Normal 0-149 [facility]; [facility] Work Phone: Comment on above: PATIENT WAS FASTINGP ERFORMED BY: CB [facility] Cczwoq6066 [address]Dublin [place] [id number] LIPID PANEL (24705) 16 mg/dL Normal 5-40 Compr ens[facility]; [facility] Work Phone: Comment on above: PATIENT WAS FASTINGP ERFORMED BY: CB [facility] Gsxjiq5187 [address]Dublin [place] [id number] LIPID PANEL (82065) 120 mg/dL Abnormal 0-99 Compr ens[facility]; [facility] Work Phone: Comment on above: PATIENT WAS FASTINGP ERFORMED BY: CB [facility] Uorczy2028 [address]Dublin [place] [id number] LIPID PANEL (83870) 2.7 {ratio} Normal 0.0-3.2 Comp [facility]eren[facility]; [facility] Work Phone: Comment on above: LDL/HDL Ratio Men Wo men 1/2 Avg.Risk 1.0 1.5 Avg.Risk 3.6 3.2 2X Avg.Risk 6.2 5.0 3X Avg.Risk 8.0 6.1 PATIENT WAS FASTINGP ERFORMED BY: CB [facility] Wvtqcs5605 [address]Dublin [place] [id number] METABOLIC PANEL, COMPREHENSI VE (31201)Ordered By: Flower Cutter on 05-08-2021 Albumin [Mass/Vol] 4.6 g/dL Normal 3.7-4.7 [facility]; [facility] Work Phone: Comment on above: PATIENT WAS FASTINGP ERFORMED BY: CB [facility] Erbxhg3840 [address]Dublin [place] [id number] Albumin/Globulin [Mass ratio] 1.6 {ratio} Normal 1.2-2.2 [facility]; [facility] Work Phone: Comment on above: PATIENT WAS FASTINGP ERFORMED BY: CB [facility] Eiqxmm5183 [address]Dublin [place] [id number] ALP [Catalytic activity/Vol] 103 U/L Normal 44-121 [facility]; [facility] Work Phone: Comment on above: Please note refere nce interval change PATIENT WAS FASTINGP ERFORMED BY: CB [facility] Ygsvnu7840 [address]Dublin [place] [id number] ALT [Catalytic activity/Vol] 12 U/L Normal 0-32 [facility]; [facility] Work Phone: Comment on above: PATIENT WAS FASTINGP ERFORMED BY: CB [facility] Kfvhep0390 [address]Dublin [place] [id number] AST [Catalytic activity/Vol] 13 U/L Normal 0-40 [facility]; [facility] Work Phone: Comment on above: PATIENT WAS FASTINGP ERFORMED BY: CB [facility] Kzffyb9600 [address]Dublin [place] [id number] Bilirubin [Mass/Vol] 0.9 mg/dL Normal 0.0-1.2 [facility]; [facility] Work Phone: Comment on above: PATIENT WAS FASTINGP ERFORMED BY: CB [facility] Azemya5757 [address]Dublin [place] [id number] Calcium [Mass/Vol] 9.7 mg/dL Normal 8.7-10.3 [facility] [facility] Internal Medicine; [facility] Work Phone: Comment on above: PATIENT WAS FASTINGP ERFORMED BY: JC Parkinson6370 [facility] [id number] Chloride [Moles/Vol] 104 mmol/L Normal 96-106 Comp rehensive Internal Medicine; [facility] Work Phone: Comment on above: PATIENT WAS FASTINGP ERFORMED BY: JC Parkinson6370 [facility] [id number] CO2 [Moles/Vol] 26 mmol/L Normal 20-29 [facility]; [facility] Work Phone: Comment on above: PATIENT WAS FASTINGP ERFORMED BY: Samina Parkinson6370 [facility] [id number] Creatinine [Mass/Vol] 0.64 mg/dL Normal 0.57-1.00 [facility] prehensive Internal Medicine; [facility] Work Phone: Comment on above: PATIENT WAS FASTINGP ERFORMED BY: Lisa Aegzlj7558 [facility] [id number] GFR/1.73 sq M.predicted among blacks CKD-EPI (S/P/Bld) [Vol rate/Area] 99 mL/min/1.73 Normal [facility]; [facility] Work Phone: Comment on above: In accordance with recommendations from the NKF-ASN Task force, [facility] is in the process of updating its eGFR calculation to the 2020 CKD-EPI creatinine equation that estimates kidney function without a race variable. PATIENT WAS FASTINGP ERFORMED BY: Lisa Unxgec2592 [facility] [id number] GFR/1.73 sq M.predicted among non-blacks CKD-EPI (S/P/Bld) [Vol rate/Area] 86 mL/min/1.73 Normal [facility]; [facility] Work Phone: Comment on above: PATIENT WAS FASTINGP ERFORMED BY: Lisa Txforp2232 [facility] [id number] Globulin (S) [Mass/Vol] 2.8 g/dL Normal 1.5-4.5 [facility]; [facility] Work Phone: Comment on above: PATIENT WAS FASTINGP ERFORMED BY: JC Lisa Fvuhnm3105 [facility] [id number] Glucose [Mass/Vol] 105 mg/dL Abnormal 65-99 [facility] Internal Medicine; [facility] Work Phone: Comment on above: PATIENT WAS FASTINGP ERFORMED BY: JC LabGolden [facility] Ofgafe2546 [facility] [id number] Potassium [Moles/Vol] 5.0 mmol/L Normal 3.5-5.2 [facility] Internal Medicine; [facility] Work Phone: Comment on above: PATIENT WAS FASTINGP ERFORMED BY: JC YeboahGolden Valley Memorial Hospital Ufirsf7369 [facility] [id number] Protein [Mass/Vol] 7.4 g/dL Normal 6.0-8.5 [facility] Internal Medicine; [facility] Work Phone: Comment on above: PATIENT WAS FASTINGP ERFORMED BY: JC ObinnaGolden [facility] Hospital Hbkraq9371 [facility] [id number] Sodium [Moles/Vol] 143 mmol/L Normal 134-144 [facility] Internal Medicine; [facility] Work Phone: Comment on above: PATIENT WAS FASTINGP ERFORMED BY: JC ObinnaGolden Valley [facility] Hospital Dhzanb5997 [facility] [id number] Urea nitrogen [Mass/Vol] 14 mg/dL Normal 8-27 [facility]; [facility] Work Phone: Comment on above: PATIENT WAS FASTINGP ERFORMED BY: JC ObinnaGolden Valley Memorial Hospital Illmao9999 [facility] [id number] Urea nitrogen/Creatinine [Mass ratio] 22 mg/mg Normal 12-28 [facility]; [facility] Work Phone: Comment on above: PATIENT WAS FASTINGP ERFORMED BY: JC Bartlettlin6[address] RoadDublin [place] [id number] MICROALBUMINOrdered By: Syst em Graphic Coordinator on 05-08-2021 Albumin DL <= 20 mg/L (U) [Mass/Vol] mg/dL Normal [facility]; [facility] Work Phone: Comment on above: PATIENT WAS FASTINGP ERFORMED BY: JC LabTamir BartlettLwmwtf3113 Mc[address]roy RoadDublin [place] [id number] Albumin/Creatinine (U) [Mass ratio] <13 Normal 0-29 [facility]; [facility] Work Phone: Comment on above: Normal: 0 - 29 Moder ately increased: 30 - 300 Severely increased: >300 PATIENT WAS FASTINGP ERFORMED BY: JC Bartlettlin6370 [address] RoadDublin [place] [id number] Creatinine (U) [Mass/Vol] 22.8 mg/dL Normal [facility]; [facility] Work Phone: Comment on above: PATIENT WAS FASTINGP ERFORMED BY: JC Bartlettlin6370 [address] RoadDublin [place] [id number] URINALYSIS, W/ MICRO ([id number]) Ordered By: Flower Cutter on 05-08-2021 Appearance (U) Clear Normal Comprehens sue Internal Medicine; [facility] Work Phone: Comment on above: PATIENT WAS FASTINGP ERFORMED BY: JC Bartlettlin6370 [address]Dublin [place] [id number] Bilirubin Ql (U) Negative Normal Comprehe nsive Internal Medicine; [facility] Work Phone: Comment on above: PATIENT WAS FASTINGP ERFORMED BY: JC LabTamir Krhkru4817 [address] RoadDublin [place] [id number] Color (U) Yellow Normal [facility]; [facility] Work Phone: Comment on above: PATIENT WAS FASTINGP ERFORMED BY: JC LabTamir BartlettPcexoq3228 [address] RoadDublin [place] [id number] Glucose Ql (U) Negative Normal Comprehens sue Internal Medicine; [facility] Work Phone: Comment on above: PATIENT WAS FASTINGP ERFORMED BY: JC Parkinson6[address]ublin [place] [id number] Hemoglobin Ql (U) Negative Normal Compreh ensive Internal Medicine; [facility] Work Phone: Comment on above: PATIENT WAS FASTINGP ERFORMED BY: JC Parkinson6[address] [place] [id number] Ketones Ql (U) Negative Normal Comprehens sue Internal Medicine; [facility] Work Phone: Comment on above: PATIENT WAS FASTINGP ERFORMED BY: JC Parkinson6[address]ublin [place] [id number] Leukocyte esterase Test strip Ql (U) Trace Abnormal [facility]; [facility] Work Phone: Comment on above: PATIENT WAS FASTINGP ERFORMED BY: JC Parkinson6[address]Dublin [place] [id number] Microscopic observation LM Nom (Urine sed) See below: Normal [facility]; [facility] Work Phone: Comment on above: Microscopic was cintia cated and was performed. PATIENT WAS FASTINGP ERFORMED BY: JC Parkinson6[address]ublin [place] [id number] Nitrite Ql (U) Negative Normal Comprehens sue Internal Medicine; [facility] Work Phone: Comment on above: PATIENT WAS FASTINGP ERFORMED BY: JC Parkinson6[address]ublin [place] [id number] pH (U) 7.0 [pH] Normal 5.0-7.5 [facility]; [facility] Work Phone: Comment on above: PATIENT WAS FASTINGP ERFORMED BY: JC Bartlettlin6[address]ublin [place] [id number] Protein Ql (U) Negative Normal Comprehens sue Internal Medicine; [facility] Work Phone: Comment on above: PATIENT WAS FASTINGP ERFORMED BY: JC Bartlettlin6370 [address]ublin [place] [id number] Specific gravity (U) [Rel density] 1.008 1 Normal 1.005-1.03 0 [facility]; [facility] Work Phone: Comment on above: PATIENT WAS FASTINGP ERFORMED BY: LabCorewell Health [facility] Hospital6370 [facility] [id number] Urobilinogen (U) [Mass/Vol] 0.2 mg/dL Normal 0.2-1.0 [facility]; [facility] Work Phone: Comment on above: PATIENT WAS FASTINGP ERFORMED BY: LabCoVirtua Our Lady of Lourdes Medical CenterHmwrcl9606 [facility] [id number] Blood Glucose , Office ([phone])Ordered By: Danika King on 05-16-2020 Glucose Glucometer (BldC) [Moles/Vol] 112 1 Normal [facility] Work Phone: HgA1C , Office ([phone])Ordere d By: Danika King on 05-16-2020 HbA1c (Bld) [Mass fraction] 5.3 % Normal 4.6 - 7.1 [facility] Work Phone: CALCIFEDIOL ([id number])Ordered B y: Flower Cutter on 04-18-2019 25-Hydroxyvitamin D2+25-Hydroxyvitamin D3 [Mass/Vol] 27.0 ng/mL Abnormal 30.0-100.0 [facility] Work Phone: Comment on above: Vitamin D deficiency has been defined by the Lancing ofMedicine and an Endocrine Society practice guideline as alevel of serum 25-OH vitamin D less than 20 ng/mL (1,2).The Endocrine Society went on to further define vitamin Dinsufficiency as a level between 21 and 29 ng/mL (2).1. IOM (Lancing of Medicine). 2010. Dietary reference intakes for calcium and D. [place]: The National Academies Press.2. Martha MF, Eva BOATENG, Nito RODRIGUEZ, et al. Evaluation, treatment, and prevention of vitamin D deficiency: an Endocrine Society clinical practice guideline. JCEM. 2010; 96(7):1911-30. Test(s) 288526-QSO-L ; 398036-QWS-H; 384277-HJC-J; 535668-Nmvjzoeyvolga; 798291-Ztqdnnkecav, Total; 179200-KHF-B (Total);286108-Wvimp LDL-P; 946530-TQW Size; 037651-ED-HY Scorewas developed and its performance characteristics determinedby [employer]. It has not been cleared or approved by the Foodand Drug Administration.PATIENT NOT FASTINGPERFORMED BY: [employer] [address] [id number] BY: [employer] Dktihw8886 [facility] [id number] CBC WITH MANUAL DIFF ([id number]) Ordered By: Flower Cutter on 04-18-2019 Basophils (Bld) [#/Vol] 0.0 {x10E3/uL} Normal 0.0-0.2 [facility] Work Phone: Comment on above: Test(s) 519322-DEN-C ; 013542-ASR-O; 853583-NDY-K; 995438-Wkqiijwuyihcp; 931905-Svaqesrbgqi, Total; 316211-SGM-R (Total);871879-Fozuu LDL-P; 214649-ZXY Size; 393684-WU-EO Scorewas developed and its performance characteristics determinedby [employer]. It has not been cleared or approved by the Foodand Drug Administration.PATIENT NOT FASTINGPERFORMED BY: [employer] [address] [id number] BY: [employer] Bwzhgo4020 [facility] [id number] Basophils (Bld) [#/Vol] 0.0 10*3/uL Normal 0.0-0.2 [facility]; [facility] Work Phone: Comment on above: Test(s) 642548-TJG-Z ; 557969-TLP-G; 239159-UHZ-M; 576466-Hlcrcjmbscmbl; 442455-Pbkdasoavpw, Total; 404112-RNP-X (Total);218487-Fihoz LDL-P; 426359-TBH Size; 802297-ZB-QJ Scorewas developed and its performance characteristics determinedby [employer]. It has not been cleared or approved by the Foodand Drug Administration.PATIENT NOT FASTINGPERFORMED BY: Hobzy[address] [id number] BY: HobzyPresbyterian HospitalKjhbtc[address] [employer] [facility] [id number] Basophils/100 WBC (Bld) 1 % Normal [facility] Work Phone: Comment on above: Test(s) 583339-KZI-R ; 184003-TXJ-L; 976928-PCS-I; 004556-Tkqatynzwseaq; 513377-Swiyypxrqci, Total; 075180-YCM-J (Total);573299-Pinzp LDL-P; 360821-LRY Size; 971239-DH-WR Scorewas developed and its performance characteristics determinedby [employer]. It has not been cleared or approved by the Foodand Drug Administration.PATIENT NOT FASTINGPERFORMED BY: TimZon [address] [id number] BY: Nousco6370 [facility] [id number] Eosinophils (Bld) [#/Vol] 0.1 {x10E3/uL} Normal 0.0-0.4 [facility] Work Phone: Comment on above: Test(s) 523421-IPE-Z ; 559091-KOX-F; 699056-XUX-V; 825087-Cxoighznkfcnn; 735898-Vtwdfifliqt, Total; 621950-JFE-J (Total);794449-Xopxd LDL-P; 381935-EUJ Size; 197724-AT-EF Scorewas developed and its performance characteristics determinedby [employer]. It has not been cleared or approved by the Foodand Drug Administration.PATIENT NOT FASTINGPERFORMED BY: Hobzy[address] [id number] BY: HobzyVirtua Our Lady of Lourdes Medical CenterHnbxwb0721 [facility] [id number] Eosinophils (Bld) [#/Vol] 0.1 10*3/uL Normal 0.0-0.4 [facility]; [facility] Work Phone: Comment on above: Test(s) 100348-VRU-N ; 152391-UYA-G; 599372-YGI-X; 388080-Jgcjzbjexpwtu; 620065-Vgmltupfuoz, Total; 519236-VTO-N (Total);154974-Djqux LDL-P; 219066-JDU Size; 642317-SZ-WW Scorewas developed and its performance characteristics determinedby [employer]. It has not been cleared or approved by the Foodand Drug Administration.PATIENT NOT FASTINGPERFORMED BY: TimZon [address] [id number] BY: Astrid70 PhoneAndPhone [facility] [id number] Eosinophils/100 WBC (Bld) 1 % Normal [facility] Work Phone: Comment on above: Test(s) 043471-YMG-B ; 164755-DQK-P; 962165-EZY-H; 429657-Xjgqrymzohtfl; 878039-Ppkaynrudzb, Total; 162994-KAT-G (Total);408163-Edpaf LDL-P; 877066-GVQ Size; 354249-VJ-RY Scorewas developed and its performance characteristics determinedby [employer]. It has not been cleared or approved by the Foodand Drug Administration.PATIENT NOT FASTINGPERFORMED BY: TimZon [address] [id number] BY: Nousco6370 [facility] [id number] Erythrocyte distribution width (RBC) [Ratio] 14.5 % Normal 12.3-15.4 [facility] Work Phone: Comment on above: Test(s) 606589-ORT-C ; 406676-MHR-U; 714218-XEY-X; 918204-Lbzybnbipkcud; 642786-Qttthuziomq, Total; 050236-WFX-C (Total);583254-Drejm LDL-P; 183989-OSK Size; 578318-ER-WJ Scorewas developed and its performance characteristics determinedby [employer]. It has not been cleared or approved by the Foodand Drug Administration.PATIENT NOT FASTINGPERFORMED BY: SendRR[address] [id number] BY: [employer] Qsbujq3096 [facility]cion[facility] [id number] Hematocrit (Bld) [Volume fraction] 40.5 % Normal 34.0-46.6 [facility] Work Phone: Comment on above: Test(s) 262423-HNS-F ; 220287-XNL-H; 628797-QON-R; 936931-Urrkoipqdqalb; 550462-Wpotdxskfac, Total; 599602-HQV-A (Total);775217-Vdnvh LDL-P; 553537-LZD Size; 940835-BY-VF Scorewas developed and its performance characteristics determinedby [employer]. It has not been cleared or approved by the Foodand Drug Administration.PATIENT NOT FASTINGPERFORMED BY: TimZon [address] [id number] BY: Nousco[address] [employer] [id number] Hemoglobin (Bld) [Mass/Vol] 13.6 g/dL Normal 11.1-15.9 [facility] Work Phone: Comment on above: Test(s) 459491-LFR-I ; 456826-RQB-N; 751407-BTV-J; 291321-Uyjmduksxskfj; 822983-Oftfwnbbirf, Total; 011745-TUN-M (Total);213469-Nfwji LDL-P; 205154-CDK Size; 117964-UZ-QX Scorewas developed and its performance characteristics determinedby [employer]. It has not been cleared or approved by the Foodand Drug Administration.PATIENT NOT FASTINGPERFORMED BY: SendRR[address] [id number] BY: [employer] Agchaz6288 [facility] [id number] Immature granulocytes (Bld) [#/Vol] 0.0 {x10E3/uL} Normal 0.0-0.1 [facility] Work Phone: Comment on above: Test(s) 932487-PUP-G ; 019249-TDA-X; 763135-RGR-B; 879178-Lbycsrduutmyj; 797318-Sdgbzogrjkg, Total; 344246-IPN-H (Total);665199-Mrtoi LDL-P; 239558-DJG Size; 605119-YK-CT Scorewas developed and its performance characteristics determinedby [employer]. It has not been cleared or approved by the Foodand Drug Administration.PATIENT NOT FASTINGPERFORMED BY: TimZon [address] [id number] BY: [employer] Oestnv2778 [facility] [id number] Immature granulocytes (Bld) [#/Vol] 0.0 10*3/uL Normal 0.0-0.1 [facility]; [facility] Work Phone: Comment on above: Test(s) 058736-RBJ-Z ; 222090-PWC-X; 079634-OEI-A; 135633-Kkllmrdxvozto; 575194-Vruldouocwn, Total; 809943-ZJN-G (Total);681918-Zcqlb LDL-P; 393176-SFB Size; 005611-IR-LK Scorewas developed and its performance characteristics determinedby [employer]. It has not been cleared or approved by the Foodand Drug Administration.PATIENT NOT FASTINGPERFORMED BY: TimZon [address] [id number] BY: [employer] Zugswn2687 [facility] [id number] Immature granulocytes/100 WBC (Bld) 0 % Normal [facility] Work Phone: Comment on above: Test(s) 249535-YBR-S ; 403780-ADH-B; 992469-VTP-V; 538180-Gavdgkoeheyzj; 126162-Kfbsctzwmni, Total; 330170-RJJ-F (Total);384405-Dqcbx LDL-P; 444057-MEC Size; 228647-SR-NW Scorewas developed and its performance characteristics determinedby [employer]. It has not been cleared or approved by the Foodand Drug Administration.PATIENT NOT FASTINGPERFORMED BY: SendRRJason [place] 583557 [facility] [id number] BY: Hobzy Nkmqyh7809 [address] [employer] [id number] Lymphocytes (Bld) [#/Vol] 1.9 {x10E3/uL} Normal 0.7-3.1 [facility] Work Phone: Comment on above: Test(s) 603259-OOD-I ; 253233-MSS-V; 479021-YJT-R; 140949-Wofzpxdczvymd; 483124-Shurfnlhxnt, Total; 706892-TWE-F (Total);573375-Lmgwa LDL-P; 935314-PAD Size; 955349-FZ-QM Scorewas developed and its performance characteristics determinedby [employer]. It has not been cleared or approved by the Foodand Drug Administration.PATIENT NOT FASTINGPERFORMED BY: TimZon [address] [id number] BY: [employer] Inkuiq5051 [facility] [id number] Lymphocytes (Bld) [#/Vol] 1.9 10*3/uL Normal 0.7-3.1 [facility]; [facility] Work Phone: Comment on above: Test(s) 828532-REJ-J ; 452398-FRU-V; 687887-HCJ-K; 092289-Vcwtawhliixgg; 652055-Mweuccwutkw, Total; 214403-WKQ-B (Total);637150-Iidom LDL-P; 029085-IVY Size; 471368-QI-ZL Scorewas developed and its performance characteristics determinedby [employer]. It has not been cleared or approved by the Foodand Drug Administration.PATIENT NOT FASTINGPERFORMED BY: SendRR[address] [id number] BY: [employer] RepublicVirtua Our Lady of Lourdes Medical CenterBldkkm3829 [facility] [id number] Lymphocytes/100 WBC (Bld) 25 % Normal [facility] Work Phone: Comment on above: Test(s) 978802-PYQ-S ; 121324-QIA-R; 933411-UWY-L; 010112-Updxtxgvoyjqc; 795275-Wcezfkcntes, Total; 545649-JMD-J (Total);806344-Mubpr LDL-P; 993679-GXR Size; 580820-PY-SC Scorewas developed and its performance characteristics determinedby [employer]. It has not been cleared or approved by the Foodand Drug Administration.PATIENT NOT FASTINGPERFORMED BY: [employer] [address] [id number] BY: [employer] Vezskm6478 [facility] [id number] MCH (RBC) [Entitic mass] 29.8 pg Normal 26.6-33.0 [facility] Internal Medicine Work Phone: Comment on above: Test(s) 550199-GXC-D ; 668536-HEP-R; 394084-UPN-R; 900596-Rwpjmgeurjkeb; 682851-Tzhbutqbdng, Total; 620103-GAJ-E (Total);641931-Gzvzy LDL-P; 995398-GYW Size; 857919-DN-CX Scorewas developed and its performance characteristics determinedby [employer]. It has not been cleared or approved by the Foodand Drug Administration.PATIENT NOT FASTINGPERFORMED BY: [employer] [address] [id number] BY: HobzyVirtua Our Lady of Lourdes Medical CenterAprnjw3467 [facility] [id number] MCHC (RBC) [Mass/Vol] 33.6 g/dL Normal 31.5-35.7 [facility] Internal Medicine Work Phone: Comment on above: Test(s) 085871-GKG-G ; 259861-GAZ-V; 583319-GWZ-D; 977440-Ewkmxqmtiuvku; 451898-Fzrsmiptgqd, Total; 456820-TWP-T (Total);592406-Wimbn LDL-P; 667816-YBO Size; 677626-UH-JY Scorewas developed and its performance characteristics determinedby [employer]. It has not been cleared or approved by the Foodand Drug Administration.PATIENT NOT FASTINGPERFORMED BY: SendRR[address] [id number] BY: Hobzy Flnqsj0984 [address] [employer] [id number] MCV (RBC) [Entitic vol] 89 fL Normal 79-97 [facility] Work Phone: Comment on above: Test(s) 524566-HXO-M ; 655196-ESX-H; 836076-ADE-F; 887817-Ehrapwsuwqvvb; 780499-Gnzkhuenybu, Total; 638128-QDY-N (Total);956429-Igxlj LDL-P; 544361-WLH Size; 956602-KN-KZ Scorewas developed and its performance characteristics determinedby [employer]. It has not been cleared or approved by the Foodand Drug Administration.PATIENT NOT FASTINGPERFORMED BY: TimZon [address] [id number] BY: Nousco6370 [employer] [id number] Monocytes (Bld) [#/Vol] 0.5 {x10E3/uL} Normal 0.1-0.9 [facility] Work Phone: Comment on above: Test(s) 428037-JJD-P ; 657971-IDU-Y; 172942-UCY-Q; 486481-Sfwlluatmhtwv; 254954-Zusbywrdwbl, Total; 342689-XNM-G (Total);471690-Pdhwk LDL-P; 740938-ZQU Size; 739167-UK-XT Scorewas developed and its performance characteristics determinedby [employer]. It has not been cleared or approved by the Foodand Drug Administration.PATIENT NOT FASTINGPERFORMED BY: Hobzy[address] [id number] BY: [employer] Evsigx5821 [facility] [id number] Monocytes (Bld) [#/Vol] 0.5 10*3/uL Normal 0.1-0.9 [facility]; [facility] Work Phone: Comment on above: Test(s) 758612-FFO-D ; 518970-YUU-S; 556769-KMT-J; 415765-Pbahivfrtvuok; 026142-Yjwmcwlfaft, Total; 478610-AGA-X (Total);429026-Bmpet LDL-P; 402457-PHO Size; 411441-WT-QN Scorewas developed and its performance characteristics determinedby [employer]. It has not been cleared or approved by the Foodand Drug Administration.PATIENT NOT FASTINGPERFORMED BY: TimZon [address] [id number] BY: Astrid70 [facility] [id number] Monocytes/100 WBC (Bld) 6 % Normal [facility] Work Phone: Comment on above: Test(s) 362438-NWT-J ; 209964-OZT-G; 011922-DYT-N; 299417-Hknkwrzbnwnet; 764035-Onxelvskley, Total; 620750-GAD-B (Total);993261-Pzenj LDL-P; 619300-PSP Size; 024898-UR-VY Scorewas developed and its performance characteristics determinedby [employer]. It has not been cleared or approved by the Foodand Drug Administration.PATIENT NOT FASTINGPERFORMED BY: TimZon [address] [id number] BY: [employer] Ujkwgi9519 [facility] [id number] Neutrophils (Bld) [#/Vol] 5.1 {x10E3/uL} Normal 1.4-7.0 [facility] Work Phone: Comment on above: Test(s) 072379-OPC-P ; 818759-OPH-J; 118296-LBH-V; 437193-Hraabcmielqvn; 532631-Wvadchvnoxq, Total; 860902-EAL-O (Total);788598-Gxsdj LDL-P; 136790-MZH Size; 921838-DT-WM Scorewas developed and its performance characteristics determinedby [employer]. It has not been cleared or approved by the Foodand Drug Administration.PATIENT NOT FASTINGPERFORMED BY: DripDropton1447 [facility] [id number] BY: Hobzy Hjusbj6843 [employer] [id number] Neutrophils (Bld) [#/Vol] 5.1 10*3/uL Normal 1.4-7.0 [facility]; [facility] Work Phone: Comment on above: Test(s) 500003-SKP-O ; 331006-ZON-J; 450187-DVU-M; 138861-Dyitvtxkkhtpc; 891992-Hlhvqdrjnqv, Total; 117501-GOS-T (Total);220989-Zentr LDL-P; 108337-BOL Size; 108307-YS-KD Scorewas developed and its performance characteristics determinedby [employer]. It has not been cleared or approved by the Foodand Drug Administration.PATIENT NOT FASTINGPERFORMED BY: DripDrop[address] [id number] BY: Nousco6370 [address] [facility] [id number] Neutrophils/100 WBC (Bld) 67 % Normal [facility] Work Phone: Comment on above: Test(s) 214600-LVF-I ; 810467-GKD-R; 714403-RHN-T; 379652-Wrbwvclzxwkqd; 092641-Qvvyoowxrev, Total; 561974-BXH-A (Total);166825-Ocxna LDL-P; 419713-KBV Size; 455724-ZW-ZV Scorewas developed and its performance characteristics determinedby [employer]. It has not been cleared or approved by the Foodand Drug Administration.PATIENT NOT FASTINGPERFORMED BY: TimZon [address] [id number] BY: Fashion RepublicVirtua Our Lady [facility]ourdes Medical CenterDufupr5186 [address] [employer] [facility] [id number] Platelets (Bld) [#/Vol] 206 {x10E3/uL} Normal 150-450 [facility] Work Phone: Comment on above: Test(s) 217273-UDX-H ; 335220-SSF-G; 964320-QAT-N; 416840-Metdektkmcvju; 629236-Varollyzbqg, Total; 920524-QTZ-L (Total);890194-Dlgwb LDL-P; 250316-TGH Size; 181095-VN-PT Scorewas developed and its performance characteristics determinedby [employer]. It has not been cleared or approved by the Foodand Drug Administration.PATIENT NOT FASTINGPERFORMED BY: [employer] [address] [id number] BY: [employer] Livfzz0544 [facility] [id number] Platelets (Bld) [#/Vol] 206 10*3/uL Normal 150-450 [facility]; [facility] Internal Medicine Work Phone: Comment on above: Test(s) 612422-QLU-Z ; 180839-WMP-A; 746117-BJW-Z; 773582-Eagnxicsokdqv; 122378-Eqiacfjpuxr, Total; 951360-PKM-X (Total);327443-Dcvfc LDL-P; 703169-KPV Size; 271023-BO-XV Scorewas developed and its performance characteristics determinedby [employer]. It has not been cleared or approved by the Foodand Drug Administration.PATIENT NOT FASTINGPERFORMED BY: [employer] [address] [id number] BY: [employer] Vyumcc2972 [facility] [id number] RBC (Bld) [#/Vol] 4.56 {x10E6/uL} Normal 3.77-5.28 [facility] Internal Medicine Work Phone: Comment on above: Test(s) 542035-GAE-K ; 089369-HCS-T; 213521-NWH-Y; 696261-Nptfsvdbobill; 524721-Ydkzibikfmy, Total; 739120-GME-D (Total);876098-Rlxfy LDL-P; 859686-FKM Size; 319688-OV-BB Scorewas developed and its performance characteristics determinedby [employer]. It has not been cleared or approved by the Foodand Drug Administration.PATIENT NOT FASTINGPERFORMED BY: Saluspot [facility] Ympqpglzym1131 [facility] [id number] BY: CB [facility] Meemlr3510 [facility] [id number] RBC (Bld) [#/Vol] 4.56 10*6/uL Normal 3.77-5.28 [facility] ehensive Internal Medicine; [facility] Work Phone: Comment on above: Test(s) 750947-AKL-R ; 591581-IOF-I; 582548-FWN-R; 386328-Anneqdzfiasmk; 596282-Blrpqzvuawu, Total; 915500-VFE-W (Total);864699-Uiciv LDL-P; 265716-IPL Size; 412612-GQ-SK Scorewas developed and its performance characteristics determinedby [employer]. It has not been cleared or approved by the Foodand Drug Administration.PATIENT NOT FASTINGPERFORMED BY: Saluspot [facility] Ibrkciolcl7892 [facility] [id number] BY: Fashion Republicrp Abhrra6857 [facility] [id number] WBC (Bld) [#/Vol] 7.7 {x10E3/uL} Normal 3.4-10.8 [facility] Internal Medicine Work Phone: Comment on above: Test(s) 716336-WAV-A ; 363095-BIK-N; 473272-HJX-D; 550777-Vvcraabwhopmt; 712912-Kwcevdajnpm, Total; 046968-AZW-E (Total);519188-Lztwb LDL-P; 126180-RDM Size; 645802-RO-HC Scorewas developed and its performance characteristics determinedby [employer]. It has not been cleared or approved by the Foodand Drug Administration.PATIENT NOT FASTINGPERFORMED BY: Saluspot [facility] Xjgmfbgkyj7446 [facility] [id number] BY: CB [facility] Nzqpox0103 [facility] [id number] WBC (Bld) [#/Vol] 7.7 10*3/uL Normal 3.4-10.8 [facility] Internal Medicine; [facility] Work Phone: Comment on above: Test(s) 248965-WSC-C ; 843965-TYO-D; 933902-MOF-L; 992895-Ovpyowmujzqfu; 304441-Lhpwhxziorr, Total; 509776-POK-W (Total);265552-Npgvy LDL-P; 362449-UCZ Size; 276929-QO-EW Scorewas developed and its performance characteristics determinedby [employer]. It has not been cleared or approved by the Foodand Drug Administration.PATIENT NOT FASTINGPERFORMED BY: Zaiseoul[address] [place] [address] [id number] BY: Astrid70 [facility]outUNC [facility] [id number] METABOLIC PANEL, COMPREHENSI VE (29855)Ordered By: Flower Cutter on 04-18-2019 Albumin [Mass/Vol] 4.6 g/dL Normal 3.5-4.8 [facility] Internal [facility] Work Phone: Comment on above: Test(s) 499948-XZC-X ; 792716-QJT-V; 313180-ZHX-Y; 692398-Pnozkytsczfpa; 913012-Xyhxmjzdlfr, Total; 721254-XFT-N (Total);930896-Qontc LDL-P; 763431-CDJ Size; 122758-DE-RC Scorewas developed and its performance characteristics determinedby [employer]. It has not been cleared or approved by the Foodand Drug Administration.PATIENT NOT FASTINGPERFORMED BY: DripDropton1447 [facility] [id number] BY: Nousco6370 [facility]outUNC [facility] [id number] Albumin/Globulin [Mass ratio] 1.5 {ratio} Normal 1.2-2.2 [facility] Internal Medicine Work Phone: Comment on above: Test(s) 736023-XCG-X ; 764434-TSJ-Y; 336174-IYM-C; 893641-Tzlruljruorql; 847554-Lmhgxpnefdh, Total; 230849-LAD-I (Total);449041-Etnsv LDL-P; 763249-QVI Size; 280241-TH-NQ Scorewas developed and its performance characteristics determinedby [employer]. It has not been cleared or approved by the Foodand Drug Administration.PATIENT NOT FASTINGPERFORMED BY: Hobzy[address] [id number] BY: Hobzy Moufkz8137 [address] [employer] [facility] [id number] ALP [Catalytic activity/Vol] 93 [iU]/L Normal 39-117 [facility] Internal Medicine Work Phone: Comment on above: Test(s) 807912-WBF-R ; 413713-HFL-V; 472628-HFR-U; 965142-Bvkjeonlpagcu; 315420-Nuodjhkjfsh, Total; 684408-DNS-A (Total);826091-Vhums LDL-P; 003939-MVG Size; 073012-WB-GJ Scorewas developed and its performance characteristics determinedby [employer]. It has not been cleared or approved by the Foodand Drug Administration.PATIENT NOT FASTINGPERFORMED BY: Hobzy[address] [id number] BY: Hobzy Kqgged2502 [address] [employer] [facility] [id number] ALP [Catalytic activity/Vol] 93 U/L Normal 39-117 [facility]; [facility] Work Phone: Comment on above: Test(s) 263625-DDH-W ; 042252-LSW-U; 866430-KBD-U; 322097-Dcebhjdsjzfxg; 436599-Jjsjyrdicsu, Total; 216513-LPH-G (Total);773304-Ztzkc LDL-P; 109839-FOE Size; 916917-OY-DD Scorewas developed and its performance characteristics determinedby [employer]. It has not been cleared or approved by the Foodand Drug Administration.PATIENT NOT FASTINGPERFORMED BY: Hobzy[address] [id number] BY: Hobzy Sssiit2173 [facility] [id number] ALT [Catalytic activity/Vol] 19 [iU]/L Normal 0-32 [facility] Work Phone: Comment on above: Test(s) 806234-CZG-D ; 772893-YJC-U; 481391-HMT-A; 258044-Sbzsgkkjctrwh; 610651-Ijyccgcotwy, Total; 808969-TBJ-D (Total);016554-Biduj LDL-P; 948106-ALM Size; 243186-BM-CX Scorewas developed and its performance characteristics determinedby [employer]. It has not been cleared or approved by the Foodand Drug Administration.PATIENT NOT FASTINGPERFORMED BY: TimZon [address] [id number] BY: Astrid70 [facility] [id number] ALT [Catalytic activity/Vol] 19 U/L Normal 0-32 [facility]; [facility] Work Phone: Comment on above: Test(s) 570373-YFN-Q ; 022018-NCE-A; 156411-FGW-H; 196030-Skfvynsjfabmz; 591803-Ydocqcgqgyr, Total; 666774-BKT-E (Total);839565-Yqcdi LDL-P; 995541-EHP Size; 656645-VP-DT Scorewas developed and its performance characteristics determinedby [employer]. It has not been cleared or approved by the Foodand Drug Administration.PATIENT NOT FASTINGPERFORMED BY: TimZon [address] [id number] BY: Nousco6370 [facility] [id number] AST [Catalytic activity/Vol] 19 [iU]/L Normal 0-40 [facility] Work Phone: Comment on above: Test(s) 329829-SIB-B ; 385193-TZQ-C; 202006-LJB-T; 260122-Aqfldwybljrod; 441454-Dbsrvpnucur, Total; 257008-DWS-V (Total);671088-Dqkxy LDL-P; 241950-FEB Size; 045340-RR-AZ Scorewas developed and its performance characteristics determinedby [employer]. It has not been cleared or approved by the Foodand Drug Administration.PATIENT NOT FASTINGPERFORMED BY: Hobzy[address] [id number] BY: Hobzy Yslhjg1275 [address] [employer] [facility] [id number] AST [Catalytic activity/Vol] 19 U/L Normal 0-40 [facility]; [facility] Work Phone: Comment on above: Test(s) 112886-OZG-A ; 673192-PCV-A; 080317-TBK-P; 685679-Wauqkrdamyipg; 262699-Hseqbmsuevk, Total; 719799-QSU-F (Total);711154-Puksp LDL-P; 814531-DBL Size; 414492-CD-IS Scorewas developed and its performance characteristics determinedby [employer]. It has not been cleared or approved by the Foodand Drug Administration.PATIENT NOT FASTINGPERFORMED BY: TimZon [address] [id number] BY: Hobzy Afhoue0037 [facility] [id number] Bilirubin [Mass/Vol] 0.9 mg/dL Normal 0.0-1.2 [facility] Internal Medicine Work Phone: Comment on above: Test(s) 667755-HSU-D ; 803601-VRX-H; 957536-HLB-U; 245826-Mmowcfpttafmf; 379551-Frvpgmzwqzj, Total; 502757-PDN-J (Total);637745-Uvnbd LDL-P; 541060-PZH Size; 431491-WU-NZ Scorewas developed and its performance characteristics determinedby [employer]. It has not been cleared or approved by the Foodand Drug Administration.PATIENT NOT FASTINGPERFORMED BY: Hobzy[address] [id number] BY: Hobzy Spfjcx1312 [facility] [id number] Calcium [Mass/Vol] 9.8 mg/dL Normal 8.7-10.3 [facility] Internal Medicine Work Phone: Comment on above: Test(s) 048455-XHL-P ; 850437-VOE-Y; 569505-GCD-O; 856617-Rknxaixdlvtlo; 260308-Lafwpkusjzz, Total; 043835-QBY-L (Total);550400-Edpof LDL-P; 323161-JGI Size; 284229-DL-XS Scorewas developed and its performance characteristics determinedby [employer]. It has not been cleared or approved by the Foodand Drug Administration.PATIENT NOT FASTINGPERFORMED BY: TimZon [address] [id number] BY: Astrid70 [facility] [id number] Chloride [Moles/Vol] 101 mmol/L Normal 96-106 [facility] Internal Medicine Work Phone: Comment on above: Test(s) 045375-CLP-Q ; 983846-VZG-E; 132583-XCG-I; 513720-Jhgruuqmsapdi; 258788-Coxyhokauea, Total; 499478-MBO-N (Total);161291-Ucogi LDL-P; 134060-KLO Size; 952917-SX-JR Scorewas developed and its performance characteristics determinedby [employer]. It has not been cleared or approved by the Foodand Drug Administration.PATIENT NOT FASTINGPERFORMED BY: TimZon [address] [id number] BY: Nousco6370 [facility] [id number] CO2 [Moles/Vol] 25 mmol/L Normal 20-29 [facility] Internal Medicine Work Phone: Comment on above: Test(s) 469191-EWC-Q ; 796240-DQV-L; 738698-OBW-U; 567944-Turjfrhbsezdr; 009516-Sfpkdvnswxu, Total; 833672-TLR-H (Total);727585-Wsclg LDL-P; 104081-NKQ Size; 011231-WP-LF Scorewas developed and its performance characteristics determinedby [employer]. It has not been cleared or approved by the Foodand Drug Administration.PATIENT NOT FASTINGPERFORMED BY: DripDrop[address] [id number] BY: [employer] Ycbyos8404 [facility] [id number] Creatinine [Mass/Vol] 0.81 mg/dL Normal 0.57-1.00 [facility] Internal Medicine Work Phone: Comment on above: Test(s) 394454-IUI-J ; 453979-IFV-E; 793483-KCZ-C; 303798-Foeupsvaooojc; 018408-Qjobbmhmjrn, Total; 689280-NOB-C (Total);151374-Basqx LDL-P; 835595-LTQ Size; 180713-LB-WB Scorewas developed and its performance characteristics determinedby [employer]. It has not been cleared or approved by the Foodand Drug Administration.PATIENT NOT FASTINGPERFORMED BY: TimZon [address] [id number] BY: Nousco6370 [facility] [id number] GFR/1.73 sq M predicted among blacks CKD-EPI (S/P/Bld) [Vol rate/Area] 82 mL/min/1.73 Normal [facility] Internal Medicine Work Phone: Comment on above: Test(s) 701694-IPD-G ; 530194-SZW-L; 430836-PQC-T; 131672-Jsbpxksevgepb; 558304-Lzfpwumbres, Total; 257670-YEY-L (Total);516128-Pemto LDL-P; 121919-OSC Size; 089885-FU-LO Scorewas developed and its performance characteristics determinedby [employer]. It has not been cleared or approved by the Foodand Drug Administration.PATIENT NOT FASTINGPERFORMED BY: SendRRrp [address] [id number] BY: Eduquialin6370 [facility] [id number] GFR/1.73 sq M predicted among non-blacks CKD-EPI (S/P/Bld) [Vol rate/Area] 71 mL/min/1.73 Normal [facility] Internal Medicine Work Phone: Comment on above: Test(s) 953170-DFL-R ; 491291-XZB-Y; 214083-ODW-Z; 413977-Lnswsbntwruab; 566407-Nkvmwjkigsn, Total; 600946-ETP-S (Total);727907-Vzwvx LDL-P; 781783-REX Size; 694910-GW-ER Scorewas developed and its performance characteristics determinedby [employer]. It has not been cleared or approved by the Foodand Drug Administration.PATIENT NOT FASTINGPERFORMED BY: DripDrop[address] [id number] BY: Astrid70 [address] [facility] [id number] Globulin (S) [Mass/Vol] 3.0 g/dL Normal 1.5-4.5 [facility] Internal Medicine Work Phone: Comment on above: Test(s) 528847-ZXC-A ; 878105-NAE-H; 034667-HYV-Z; 140066-Zbrurwieqqugk; 439284-Cskfeqetmdl, Total; 778749-TRC-Z (Total);640886-Zqvzk LDL-P; 333516-KDY Size; 544180-NH-HH Scorewas developed and its performance characteristics determinedby [employer]. It has not been cleared or approved by the Foodand Drug Administration.PATIENT NOT FASTINGPERFORMED BY: DripDrop[address] [id number] BY: Nousco6370 [facility] [id number] Glucose [Mass/Vol] 99 mg/dL Normal 65-99 [facility] Internal Medicine Work Phone: Comment on above: Test(s) 017993-OQF-J ; 258892-LNF-Q; 219805-OJA-G; 928918-Kfehfucpxhopj; 239128-Wbnkishdrpw, Total; 628772-CCQ-S (Total);914492-Kuihv LDL-P; 390539-OWD Size; 279829-IS-LH Scorewas developed and its performance characteristics determinedby [employer]. It has not been cleared or approved by the Foodand Drug Administration.PATIENT NOT FASTINGPERFORMED BY: Hobzy[address] [id number] BY: HobzyVirtua Our Lady of Lourdes Medical CenterNaflkf5402 [facility] [id number] Potassium [Moles/Vol] 4.3 mmol/L Normal 3.5-5.2 [facility] Internal Medicine Work Phone: Comment on above: Test(s) 806669-ZUG-A ; 310707-UJI-K; 555923-ECR-J; 373271-Ucnppytijbxmq; 309093-Zzlbbbyxkhj, Total; 691104-MRM-V (Total);833431-Vygoa LDL-P; 890138-HUM Size; 074586-IF-GQ Scorewas developed and its performance characteristics determinedby [employer]. It has not been cleared or approved by the Foodand Drug Administration.PATIENT NOT FASTINGPERFORMED BY: Hobzy[address] [id number] BY: HobzyVirtua Our Lady of Lourdes Medical CenterYpvawy7934 [facility] [id number] Protein [Mass/Vol] 7.6 g/dL Normal 6.0-8.5 [facility] Internal Medicine Work Phone: Comment on above: Test(s) 570512-OPI-E ; 314368-EFZ-X; 486637-IQF-K; 899878-Xmfceqihnftzp; 147826-Wrggszwapze, Total; 014501-XZW-R (Total);879889-Tglkt LDL-P; 270546-WYA Size; 615246-JV-ET Scorewas developed and its performance characteristics determinedby [employer]. It has not been cleared or approved by the Foodand Drug Administration.PATIENT NOT FASTINGPERFORMED BY: Hobzy[address] [id number] BY: HobzyVirtua Our Lady of Lourdes Medical CenterKmplty3499 [facility] [id number] Sodium [Moles/Vol] 141 mmol/L Normal 134-144 [facility] Internal Medicine Work Phone: Comment on above: Test(s) 533107-XFH-S ; 014381-LGI-A; 093947-WQO-Y; 054681-Xacxujqyhnkig; 812097-Zrwwcptvfwc, Total; 424904-UQP-U (Total);308640-Toext LDL-P; 997737-XHO Size; 109730-LW-HD Scorewas developed and its performance characteristics determinedby [employer]. It has not been cleared or approved by the Foodand Drug Administration.PATIENT NOT FASTINGPERFORMED BY: TimZon [address] [id number] BY: Astrid70 [facility] [id number] Urea nitrogen [Mass/Vol] 16 mg/dL Normal 8- [facility] Internal Medicine Work Phone: Comment on above: Test(s) 849912-QXX-G ; 438110-EZR-R; 992070-MHK-Z; 550371-Gfrlfvnuhcovh; 174956-Timsobspzqd, Total; 511401-PVT-U (Total);897259-Vtobd LDL-P; 789982-WJW Size; 155644-EM-ID Scorewas developed and its performance characteristics determinedby [employer]. It has not been cleared or approved by the Foodand Drug Administration.PATIENT NOT FASTINGPERFORMED BY: TimZon [address] [id number] BY: Nousco6370 [facility] [id number] Urea nitrogen/Creatinine [Mass ratio] 20 mg/mg Normal 12- [facility] Work Phone: Comment on above: Test(s) 813100-TOG-T ; 857528-JXS-Y; 149178-SEW-L; 041613-Nmzfuntdlfqyh; 205166-Rzstpojcgpm, Total; 982281-WFD-C (Total);828920-Tclsz LDL-P; 589855-VED Size; 971869-AN-UJ Scorewas developed and its performance characteristics determinedby [employer]. It has not been cleared or approved by the Foodand Drug Administration.PATIENT NOT FASTINGPERFORMED BY: SendRRrp Nkaieyzgxk8476 [facility] [id number] BY: [facility] Ypeqvv2158 [address] [employer] [facility] [id number] MICROALBUMINOrdered By: Syst em Graphic Coordinator on 04-18-2019 Albumin DL <= 20 mg/L (U) [Mass/Vol] mg/dL Normal [facility] Work Phone: Comment on above: Test(s) 598617-RRW-K ; 395071-BLB-G; 891480-QBH-J; 959395-Xvmnidkizkupy; 062378-Ygkntgiymbq, Total; 314308-GWX-R (Total);176592-Xeoiy LDL-P; 447497-BXQ Size; 387728-MX-KL Scorewas developed and its performance characteristics determinedby [employer]. It has not been cleared or approved by the Foodand Drug Administration.PATIENT NOT FASTINGPERFORMED BY: SendRRrp Htsiadeyjt[address] [id number] BY: [employer] Republicrp Svbxct6229 [facility] [id number] Albumin DL <= 20 mg/L (U) [Mass/Vol] mg/dL Normal [facility]; [facility] Work Phone: Comment on above: Test(s) 888281-NLN-Y ; 081213-MFT-K; 775215-NIX-H; 298131-Ulgesgufuyltz; 422310-Vdubghwknku, Total; 042502-UJF-U (Total);951857-Thfwa LDL-P; 827442-FDM Size; 266356-IV-OZ Scorewas developed and its performance characteristics determinedby [employer]. It has not been cleared or approved by the Foodand Drug Administration.PATIENT NOT FASTINGPERFORMED BY: Saluspot [facility] Nrttcihizv0187 [facility] [id number] BY: [facility] Gzpnus0880 [facility] [id number] Albumin/Creatinine (U) [Mass ratio] <11.8 Normal 0.0-30.0 [facility] Work Phone: Comment on above: Normal: 0.0 - 30.0 A lbuminuria: 31.0 - 300.0 Clinical albuminuria: >300.0 Test(s) 664375-BCN-A ; 412470-LOU-H; 678428-ATV-L; 952627-Mfbsfllgfziye; 294224-Bunhwinzyhx, Total; 100030-GEC-J (Total);648490-Hdxsj LDL-P; 131333-MSX Size; 951290-OW-FQ Scorewas developed and its performance characteristics determinedby [employer]. It has not been cleared or approved by the Foodand Drug Administration.PATIENT NOT FASTINGPERFORMED BY: DripDrop[address] [id number] BY: Astrid70 SpoutUNC Health Nash [id number] Creatinine (U) [Mass/Vol] 25.4 mg/dL Normal [facility] Work Phone: Comment on above: Test(s) 181727-MJM-W ; 252041-WYL-P; 296607-YRN-O; 671621-Kvjhqwessqjtn; 703924-Uopzpdkrosz, Total; 790561-BHP-N (Total);709412-Kvxcz LDL-P; 938910-JFX Size; 046069-NG-HB Scorewas developed and its performance characteristics determinedby [employer]. It has not been cleared or approved by the Foodand Drug Administration.PATIENT NOT FASTINGPERFORMED BY: DripDrop[address] [id number] BY: [employer] Vhpxzb3373 [facility] [id number] NMR Profile (44767)Ordered B y: Flower Cutter on 04-18-2019 Cholesterol [Mass/Vol] 179 mg/dL Normal 100-199 [facility] Work Phone: Comment on above: Test(s) 783101-OHU-J ; 402429-EMQ-U; 662621-MIS-E; 914090-Tgpfzhtqacskj; 854202-Irkdwzjehix, Total; 976709-ECL-R (Total);759923-Uerlz LDL-P; 707410-XLM Size; 490391-ZT-AP Scorewas developed and its performance characteristics determinedby [employer]. It has not been cleared or approved by the [employer] Drug Administration.PATIENT NOT FASTINGPERFORMED BY: TimZon [address] [id number] BY: Fantom70 [facility]outUNC Health Nash [id number] Lipoprotein.alpha [Moles/Vol] 33.6 umol/L Normal [facility] Work Phone: Comment on above: Test(s) 998907-WRC-N ; 939965-TYD-W; 878172-WBU-B; 483412-Htbiutjzarfgo; 364378-Zmofowhjupp, Total; 671671-ZJJ-N (Total);909050-Gkfqz LDL-P; 380280-VQZ Size; 464331-NQ-HF Scorewas developed and its performance characteristics determinedby [employer]. It has not been cleared or approved by the Foodand Drug Administration.PATIENT NOT FASTINGPERFORMED BY: TimZon [address] [id number] BY: Astrid70 [facility] [id number] Lipoprotein.beta.subp article [Entitic length] 20.7 nm Normal [facility] Work Phone: Comment on above: INTERPRETATIVE INFORMATION PARTICLE CONCENTRATION AND SIZE <--Lower CVD Risk Higher CVD Risk--> LDL AND HDL PARTICLES Percentile in Reference Population HDL-P (total) High 75th 50th 25th Low >34.9 34.9 30.5 26.7 <26.7 . Small LDL-P Low 25th 50th 75th High <117 117 527 839 >839 . LDL Size <-Large (Pattern A)-> <-Small (Pattern B)-> 23.0 20.6 20.5 19.0 Small LDL-P and LDL Size are associated with CVD risk, but not afterLDL-P is taken into account. Test(s) 026726-TQO-O ; 594174-DOL-F; 364650-SFZ-L; 197723-Txvsaaswikitb; 812910-Wkeetoozzra, Total; 666954-OFA-K (Total);718051-Xzfiu LDL-P; 459745-VDP Size; 846044-ZY-GX Scorewas developed and its performance characteristics determinedby [employer]. It has not been cleared or approved by the Foodand Drug Administration.PATIENT NOT FASTINGPERFORMED BY: DripDropton1447 [facility] [id number] BY: [facility] [id number] Lipoprotein.beta.subp article [Moles/Vol] 1346 nmol/L Abnormal Comprehensiv e Internal Medicine Work Phone: Comment on above: Low < 1000 Moderate 1000 - 1299 Borderline-High 1300 - 1599 High 1600 - 2000 Very High > 2000 Test(s) 650117-VPU-D ; 246041-SXJ-A; 358094-LAI-R; 734612-Vskdckvilqbrc; 659336-Bdtyibufdpz, Total; 661652-MSP-V (Total);381025-Wvric LDL-P; 899181-THK Size; 289633-CS-KA Scorewas developed and its performance characteristics determinedby [employer]. It has not been cleared or approved by the Foodand Drug Administration.PATIENT NOT FASTINGPERFORMED BY: DripDrop[address] [id number] BY: Astrid70 [facility] [id number] Lipoprotein.beta.subp article.small [Moles/Vol] 586 nmol/L Abnormal [facility] Work Phone: Comment on above: Test(s) 116715-TVG-F ; 949235-TYX-H; 421139-YDM-I; 570937-Qqujkkoidxiow; 195257-Vrrqnsyzxvy, Total; 592959-RPM-C (Total);084779-Ubqwf LDL-P; 818477-QYR Size; 708085-EZ-UP Scorewas developed and its performance characteristics determinedby [employer]. It has not been cleared or approved by the Foodand Drug Administration.PATIENT NOT FASTINGPERFORMED BY: TimZon [address] [id number] BY: [employer] Lusrfi2559 [facility] [id number] Triglyceride [Mass/Vol] 87 mg/dL Normal 0-149 [facility] Work Phone: Comment on above: Test(s) 983622-OKV-E ; 665715-VAA-W; 473599-RDD-X; 076165-Impcgcgzgvkls; 377923-Zvrdyijipmi, Total; 080970-CHI-Q (Total);453106-Zxiyh LDL-P; 709491-LOZ Size; 598361-JN-PE Scorewas developed and its performance characteristics determinedby [employer]. It has not been cleared or approved by the Foodand Drug Administration.PATIENT NOT FASTINGPERFORMED BY: TimZon [address] [id number] BY: [employer] Uqfuqq3351 [facility] [id number] NMR Profile (69567) 49 mg/dL Normal [facility] Internal Medicine Work Phone: Comment on above: Test(s) 613786-PIT-I ; 771606-OVE-F; 793759-NCC-H; 884291-Xwzrdidwoqdoh; 168304-Cbwgjqqynuk, Total; 671015-FSC-N (Total);339004-Kcxmv LDL-P; 367768-RWL Size; 374640-MP-KS Scorewas developed and its performance characteristics determinedby [employer]. It has not been cleared or approved by the Foodand Drug Administration.PATIENT NOT FASTINGPERFORMED BY: DripDropton1447 [facility] [id number] BY: Astrid70 Revert.[facility] [id number] NMR Profile (90338) 113 mg/dL Abnormal 0-99 Compr ehensive Internal Medicine Work Phone: Comment on above: . Optimal < 100 Abov e optimal 100 - 129 Borderline 130 - 159 High 160 - 189 Very high > 189 .LDL-C is inaccurate if patient is non-fasting. Test(s) 185164-WSD-U ; 156049-BME-D; 513928-YFI-W; 283984-Zqchqnkrnmpgo; 450263-Ygpvyghzfqv, Total; 197284-CIL-N (Total);017403-Ifvnd LDL-P; 015282-TFW Size; 410584-LI-MG Scorewas developed and its performance characteristics determinedby [employer]. It has not been cleared or approved by the Foodand Drug Administration.PATIENT NOT FASTINGPERFORMED BY: DripDrop[address] [id number] BY: Nousco6370 [facility] [id number] URINALYSIS, W/ MICRO (93091) Ordered By: Flower Cutter on 04-18-2019 Appearance (U) Clear Normal Comprehens sue Internal Medicine Work Phone: Comment on above: Test(s) 401834-COW-M ; 216239-WDF-S; 348579-OJY-B; 048928-Oxiesfssfufyt; 364846-Aupfygtgrmx, Total; 488752-CKK-S (Total);575665-Mpgbe LDL-P; 947124-ZIO Size; 765558-EA-OK Scorewas developed and its performance characteristics determinedby [employer]. It has not been cleared or approved by the Foodand Drug Administration.PATIENT NOT FASTINGPERFORMED BY: DripDropton1447 [facility] [id number] BY: Nousco6370 [facility]outUNC [facility] [id number] Bilirubin Ql (U) Negative Normal Comprehe nsive Internal Medicine Work Phone: Comment on above: Test(s) 491116-AFL-F ; 407231-QAL-R; 680556-XFK-L; 325826-Qzlnvhegdgqxa; 980260-Joyyboqjoqd, Total; 265272-RPN-C (Total);374267-Ynbui LDL-P; 004179-GNJ Size; 030837-WJ-JD Scorewas developed and its performance characteristics determinedby [employer]. It has not been cleared or approved by the Foodand Drug Administration.PATIENT NOT FASTINGPERFORMED BY: DripDrop[address] [id number] BY: [facility]OnlyH[facility] [id number] Bilirubin Ql (U) Negative Normal Comprehe [facility] Internal Medicine; [facility] Work Phone: Comment on above: Test(s) 817391-ZLB-G ; 958458-MBN-P; 469477-RLA-T; 864595-Cemfzdhhgsekw; 467123-Pmvflccagjw, Total; 677697-ZVT-L (Total);698524-Qiank LDL-P; 169784-RWY Size; 143899-FZ-HZ Scorewas developed and its performance characteristics determinedby [employer]. It has not been cleared or approved by the Foodand Drug Administration.PATIENT NOT FASTINGPERFORMED BY: DripDrop[address] [id number] BY: Nousco6370 [facility] [id number] Color (U) Yellow Normal [facility] Work Phone: Comment on above: Test(s) 828960-MOK-M ; 285317-ZFL-C; 929759-BTF-C; 337357-Sliyytkznftlg; 916505-Wgcawbfffrd, Total; 101587-BLD-Y (Total);628943-Gacur LDL-P; 071774-HIS Size; 331873-IK-SC Scorewas developed and its performance characteristics determinedby [employer]. It has not been cleared or approved by the Foodand Drug Administration.PATIENT NOT FASTINGPERFORMED BY: BN LabCoJason V[place] 583557 [facility] [id number] BY: HobzyVirtua Our Lady of Lourdes Medical CenterFqbdmh1999 [facility] [id number] Glucose Ql (U) Negative Normal Comprehens sue Internal Medicine Work Phone: Comment on above: Test(s) 508801-LLV-A ; 174332-OOI-M; 384116-CRW-U; 419226-Uiryggvnlyepb; 765038-Ftxcgeyvqkm, Total; 127490-BFG-Y (Total);209969-Hafnr LDL-P; 238851-QEW Size; 354871-GH-VT Scorewas developed and its performance characteristics determinedby [employer]. It has not been cleared or approved by the Foodand Drug Administration.PATIENT NOT FASTINGPERFORMED BY: TimZon [address] [id number] BY: Eduquialin6370 [facility] [id number] Glucose Ql (U) Negative Normal Comprehens sue Internal Medicine; [facility] Work Phone: Comment on above: Test(s) 534354-HVK-A ; 419815-FZO-Y; 564681-MVH-F; 768007-Cqnteudsasiog; 380304-Exnkncuahcx, Total; 754037-VQT-T (Total);822169-Jlksx LDL-P; 892211-DTU Size; 084999-WE-PG Scorewas developed and its performance characteristics determinedby [employer]. It has not been cleared or approved by the Foodand Drug Administration.PATIENT NOT FASTINGPERFORMED BY: TimZon [address] [id number] BY: HobzyVirtua Our Lady of Lourdes Medical CenterEfvnqy0785 [facility] [id number] Hemoglobin Ql (U) Negative Normal Compreh ensive Internal Medicine Work Phone: Comment on above: Test(s) 978275-HWM-O ; 021870-NQG-P; 267889-WRK-U; 437134-Egucwvvdpvfrp; 634714-Iztxzgssgvd, Total; 056656-GTN-T (Total);922767-Mafxu LDL-P; 947714-TLX Size; 879842-OI-WO Scorewas developed and its performance characteristics determinedby [employer]. It has not been cleared or approved by the Foodand Drug Administration.PATIENT NOT FASTINGPERFORMED BY: Hobzy[address] [id number] BY: HobzyPresbyterian HospitalOgeqtn2938 [facility] [id number] Hemoglobin Ql (U) Negative Normal Compreh ensive Internal Medicine; [facility] Work Phone: Comment on above: Test(s) 685212-BVC-Z ; 979200-FZT-E; 249943-PCS-Z; 477425-Nsflpjusczdxt; 609005-Inwaydhriuy, Total; 753443-PGR-W (Total);571167-Htrov LDL-P; 122588-DVI Size; 431483-RR-RX Scorewas developed and its performance characteristics determinedby [employer]. It has not been cleared or approved by the Foodand Drug Administration.PATIENT NOT FASTINGPERFORMED BY: TimZon [address] [id number] BY: [employer] Nkrdpo5024 [facility] [id number] Ketones Ql (U) Negative Normal Comprehens sue Internal Medicine Work Phone: Comment on above: Test(s) 533248-TGM-J ; 170201-VKC-L; 781823-LNU-W; 458467-Cbwhpikxchyft; 919135-Wndvcsyhnsy, Total; 615269-JJK-D (Total);442787-Gkzgr LDL-P; 704557-ZLB Size; 310243-TM-CL Scorewas developed and its performance characteristics determinedby [employer]. It has not been cleared or approved by the Foodand Drug Administration.PATIENT NOT FASTINGPERFORMED BY: Hobzy[address] [id number] BY: HobzyVirtua Our Lady of Lourdes Medical CenterCbkoch6434 [facility] [id number] Ketones Ql (U) Negative Normal Comprehens sue Internal Medicine; [facility] Work Phone: Comment on above: Test(s) 850187-NYU-L ; 863189-JNQ-H; 694106-CKY-B; 350835-Ankvsnwcruyot; 145803-Aenioermfhh, Total; 211745-CKC-R (Total);953146-Lndpe LDL-P; 735313-AJB Size; 498157-NQ-RH Scorewas developed and its performance characteristics determinedby [employer]. It has not been cleared or approved by the Foodand Drug Administration.PATIENT NOT FASTINGPERFORMED BY: DripDrop[address] [id number] BY: Isolation NetworkUNC Health Nash [id number] Leukocyte esterase Test strip Ql (U) Trace Abnormal [facility] Work Phone: Comment on above: Test(s) 370448-SOT-T ; 420768-ZHF-I; 284807-SLI-A; 499272-Aahbyxsdefvum; 164661-Gkhwqfdlhqp, Total; 325282-VII-T (Total);570203-Scern LDL-P; 734927-DCN Size; 279220-OZ-HU Scorewas developed and its performance characteristics determinedby [employer]. It has not been cleared or approved by the Foodand Drug Administration.PATIENT NOT FASTINGPERFORMED BY: TimZon [address] [id number] BY: Astrid70 Revert.IOScionHealth [id number] Microscopic observation LM Nom (Urine sed) See below: Normal [facility] Work Phone: Comment on above: Microscopic was cintia cated and was performed. Test(s) 274944-MEO-S ; 917139-KIL-V; 191828-DWF-Y; 591793-Honzkhrgwralf; 943496-Uepndqihabo, Total; 264185-TIJ-D (Total);961218-Nlvao LDL-P; 371412-YIY Size; 133070-QQ-ZT Scorewas developed and its performance characteristics determinedby [employer]. It has not been cleared or approved by the Foodand Drug Administration.PATIENT NOT FASTINGPERFORMED BY: SendRR[address] [id number] BY: HobzyVirtua Our Lady of Lourdes Medical CenterVpzysr8391 [facility] [id number] Nitrite Ql (U) Negative Normal Comprehens sue Internal Medicine Work Phone: Comment on above: Test(s) 888077-QEG-V ; 206667-TUG-Q; 749904-FSL-J; 822978-Himgamszgfomt; 534325-Qiskblczooq, Total; 959234-LIW-A (Total);257378-Scgbi LDL-P; 829561-LHQ Size; 351374-BA-BV Scorewas developed and its performance characteristics determinedby [employer]. It has not been cleared or approved by the Foodand Drug Administration.PATIENT NOT FASTINGPERFORMED BY: TimZon [address] [id number] BY: [employer] Uamnmx3250 [facility] [id number] Nitrite Ql (U) Negative Normal Comprehens sue Internal Medicine; [facility] Work Phone: Comment on above: Test(s) 606370-AGX-D ; 538896-LHB-W; 740409-ZPS-E; 628557-Brlipldcrmrav; 271371-Uitsgmupozx, Total; 379636-SUJ-A (Total);644246-Ofgnc LDL-P; 389332-GEF Size; 568274-YD-TV Scorewas developed and its performance characteristics determinedby [employer]. It has not been cleared or approved by the Foodand Drug Administration.PATIENT NOT FASTINGPERFORMED BY: TimZon [address] [id number] BY: Fashion RepublicVirtua Our Lady of Lourdes Medical CenterDzvblu1034 [facility] [id number] pH (U) 7.0 [pH] Normal 5.0-7.5 [facility] Work Phone: Comment on above: Test(s) 360086-ZEB-V ; 776189-TUC-G; 323339-ZJM-U; 468457-Tyecfgqvxluhh; 010889-Buwtijszeso, Total; 690326-RIH-I (Total);082938-Vzomg LDL-P; 840175-IHT Size; 357550-HP-VF Scorewas developed and its performance characteristics determinedby [employer]. It has not been cleared or approved by the Foodand Drug Administration.PATIENT NOT FASTINGPERFORMED BY: TimZon [address] [id number] BY: [employer] [facility] [id number] Protein Ql (U) Negative Normal Comprehens sue Internal Medicine Work Phone: Comment on above: Test(s) 825370-USH-D ; 926004-XZC-L; 094071-RGF-B; 078455-Ippmfmnevswev; 606648-Pdhqwzmrsxt, Total; 356760-NWX-Z (Total);452608-Yqksr LDL-P; 387073-SMM Size; 086682-HP-FR Scorewas developed and its performance characteristics determinedby [employer]. It has not been cleared or approved by the Foodand Drug Administration.PATIENT NOT FASTINGPERFORMED BY: TimZon [address] [id number] BY: Astrid70 [facility] [id number] Protein Ql (U) Negative Normal Comprehens sue Internal Medicine; [facility] Work Phone: Comment on above: Test(s) 011299-ZHW-F ; 957320-NAK-T; 814305-UOB-U; 258997-Sdxiapndwttdz; 754815-Myuzplkkeyb, Total; 048305-DYT-Q (Total);910231-Elgqw LDL-P; 237839-WVV Size; 696118-NL-QH Scorewas developed and its performance characteristics determinedby [employer]. It has not been cleared or approved by the Foodand Drug Administration.PATIENT NOT FASTINGPERFORMED BY: TimZon [address] [id number] BY: Astrid70 SpoutUNC Health Nash [id number] Specific gravity (U) [Rel density] 1.007 1 Normal 1.005-1.03 0 [facility] Internal Medicine Work Phone: Comment on above: Test(s) 280431-ITK-T ; 170357-NUI-V; 359277-GLR-G; 603306-Zyemhntkkbmvu; 725551-Hvxnaxiljaw, Total; 065615-KJE-D (Total);309616-Jypoq LDL-P; 993181-OEY Size; 622073-UA-EY Scorewas developed and its performance characteristics determinedby [employer]. It has not been cleared or approved by the Foodand Drug Administration.PATIENT NOT FASTINGPERFORMED BY: TimZon [address] [id number] BY: Nousco6370 SpoutUNC Health Nash [id number] Urobilinogen (U) [Mass/Vol] 0.2 mg/dL Normal 0.2-1.0 [facility] Internal [facility] Internal Medicine Work Phone: Comment on above: Test(s) 803804-ATP-V ; 957484-XJH-L; 549042-JLU-Q; 400352-Scgdxrpyogjmg; 319974-Rplanbsbtuy, Total; 808891-QCU-X (Total);496131-Pgluu LDL-P; 193021-LAY Size; 528244-TM-FQ Scorewas developed and its performance characteristics determinedby [employer]. It has not been cleared or approved by the Foodand Drug Administration.PATIENT NOT FASTINGPERFORMED BY: TimZon [address] [id number] BY: Nousco6370 Revert.[facility]OScion[facility] [id number] Urobilinogen Test strip (U) [Mass/Vol] 0.2 mg/dL Normal 0.2-1.0 [facility] Internal Medicine Work Phone: Comment on above: Test(s) 719399-BEO-R ; 112813-IBO-H; 691793-UER-I; 679960-Pagpidkqsvtiz; 380083-Ygyopkoscif, Total; 197824-VLH-W (Total);173829-Qydcf LDL-P; 616884-VDA Size; 735750-AN-KK Scorewas developed and its performance characteristics determinedby frentingGolden Valley Memorial Hospital. It has not been cleared or approved by the Foodand Drug Administration.PATIENT NOT FASTINGPERFORMED BY: [address] [id number] BY: [address] [id number] CBC W/AUTO DIFF WBC (26468)O rdered By: Flower Cutter on 05-05-2018 Basophils (Bld) [#/Vol] 0.0 {x10E3/uL} Normal 0.0-0.2 [facility] Work Phone: Comment on above: PATIENT WAS FASTINGP ERFORMED BY: [address] [id number] BY: [facility] FoundationFashion RepublicMegan Ville 6338170 [facility] [id number] Basophils (Bld) [#/Vol] 0.0 10*3/uL Normal 0.0-0.2 [facility]; [facility] Work Phone: Comment on above: PATIENT WAS FASTINGP ERFORMED BY: [address] [id number] BY: [place] 7139670 [facility] [id number] Basophils Auto #/vol (Bld) 0.0 {x10E3/uL} Normal 0.0-0.2 [facility] Work Phone: Basophils/100 WBC (Bld) 0 % Normal [facility] Work Phone: Comment on above: PATIENT WAS FASTINGP ERFORMED BY: [address] [id number] BY: [place] 7139670 [facility] [id number] Basophils/100 WBC Auto (Bld) 0 % Normal [facility] Work Phone: Eosinophils (Bld) [#/Vol] 0.1 {x10E3/uL} Normal 0.0-0.4 [facility] Work Phone: Comment on above: PATIENT WAS FASTINGP ERFORMED BY: Hobzy[address] [id number] BY: Hobzy Wzupmf5930 [facility] [id number] Eosinophils (Bld) [#/Vol] 0.1 10*3/uL Normal 0.0-0.4 [facility]; [facility] Work Phone: Comment on above: PATIENT WAS FASTINGP ERFORMED BY: Hobzy[address] [id number] BY: Hobzy Rvqkbu4011 [facility] [id number] Eosinophils Auto #/vol (Bld) 0.1 {x10E3/uL} Normal 0.0-0.4 [facility] Work Phone: Eosinophils/100 WBC (Bld) 2 % Normal [facility] Work Phone: Comment on above: PATIENT WAS FASTINGP ERFORMED BY: Hobzy[address] [id number] BY: HobzyMegan [place] 6338170 [facility] [id number] Eosinophils/100 WBC Auto (Bld) 2 % Normal [facility] Work Phone: Erythrocyte distribution width (RBC) [Ratio] 14.1 % Normal 12.3-15.4 [facility] Work Phone: Comment on above: PATIENT WAS FASTINGP ERFORMED BY: Hobzy[address] [id number] BY: HobzyMegan [place] 6338170 [facility] [place] [id number] Erythrocyte distribution width Auto Ratio (RBC) 14.1 % Normal 12.3-15.4 [facility] Work Phone: Hematocrit (Bld) [Volume fraction] 39.9 % Normal 34.0-46.6 [facility] Work Phone: Comment on above: PATIENT WAS FASTINGP ERFORMED BY: [employer] [id number] BY: [facility] Qkhgak6299 [facility] [id number] Hematocrit Auto Volume Fraction (Bld) 39.9 % Normal 34.0-46.6 [facility] Internal Medicine Work Phone: Hemoglobin mass conc (Bld) 13.4 g/dL Normal 11.1-15.9 [facility] Work Phone: Comment on above: PATIENT WAS FASTINGP ERFORMED BY: Hobzyrp [address] [id number] BY: JC [employer] Obalhg2573 [facility] [id number] Immature granulocytes #/vol (Bld) 0.0 {x10E3/uL} Normal 0.0-0.1 [facility] Work Phone: Comment on above: PATIENT WAS FASTINGP ERFORMED BY: Hobzyrp [address] [id number] BY: [employer]C [employer] Hfedxx6594 [facility] [id number] Immature granulocytes (Bld) [#/Vol] 0.0 10*3/uL Normal 0.0-0.1 [facility]; [facility] Work Phone: Comment on above: PATIENT WAS FASTINGP ERFORMED BY: Hobzy[address] [id number] BY: LabFashion RepublicMegan [place] 6338170 [facility] [id number] Immature granulocytes/100 WBC (Bld) 0 % Normal [facility] Work Phone: Comment on above: PATIENT WAS FASTINGP ERFORMED BY: Hobzy[address] [id number] BY: [facility] Zpunjw7422 Mc[place] RoadDublin [place] [id number] Lymphocytes (Bld) [#/Vol] 2.2 {x10E3/uL} Normal 0.7-3.1 [facility] Work Phone: Comment on above: PATIENT WAS FASTINGP ERFORMED BY: [address] [id number] BY: [place] 7139670 [facility] [id number] Lymphocytes (Bld) [#/Vol] 2.2 10*3/uL Normal 0.7-3.1 [facility]; [facility] Work Phone: Comment on above: PATIENT WAS FASTINGP ERFORMED BY: [address] [id number] BY: [place] 7139670 [facility] [id number] Lymphocytes Auto #/vol (Bld) 2.2 {x10E3/uL} Normal 0.7-3.1 [facility] Work Phone: Lymphocytes/100 WBC (Bld) 27 % Normal [facility] Work Phone: Comment on above: PATIENT WAS FASTINGP ERFORMED BY: [address] [id number] BY: [place] 7139670 [facility] [id number] Lymphocytes/100 WBC Auto (Bld) 27 % Normal [facility] Work Phone: MCH (RBC) [Entitic mass] 30.0 pg Normal 26.6-33.0 [facility] Work Phone: Comment on above: PATIENT WAS FASTINGP ERFORMED BY: [address] [id number] BY: [place] 7139670 [facility] [id number] MCH Auto Entitic mass (RBC) 30.0 pg Normal 26.6-33.0 [facility] Work Phone: MCHC (RBC) [Mass/Vol] 33.6 g/dL Normal 31.5-35.7 [facility] Internal Medicine Work Phone: Comment on above: PATIENT WAS FASTINGP ERFORMED BY: Hobzy[address] [id number] BY: Hobzy Ttxlcv0268 [facility] [id number] MCHC Auto mass conc (RBC) 33.6 g/dL Normal 31.5-35.7 [facility] Internal Medicine Work Phone: MCV (RBC) [Entitic vol] 89 fL Normal 79-97 [facility] Work Phone: Comment on above: PATIENT WAS FASTINGP ERFORMED BY: Hobzy[address] [id number] BY: [place]zyM[place] 6338170 [facility] [id number] MCV Auto Entitic volume (RBC) 89 fL Normal 79-97 [facility] Internal Medicine Work Phone: Monocytes (Bld) [#/Vol] 0.5 {x10E3/uL} Normal 0.1-0.9 [facility] Internal Medicine Work Phone: Comment on above: PATIENT WAS FASTINGP ERFORMED BY: Hobzy[address] [id number] BY: [place]zyM[place] 6338170 [facility] [id number] Monocytes (Bld) [#/Vol] 0.5 10*3/uL Normal 0.1-0.9 [facility]; [facility] Work Phone: Comment on above: PATIENT WAS FASTINGP ERFORMED BY: Hobzy[address] [id number] BY: [place]zyM[place] 6338170 [facility] [id number] Monocytes Auto #/vol (Bld) 0.5 {x10E3/uL} Normal 0.1-0.9 [facility] Work Phone: Monocytes/100 WBC (Bld) 6 % Normal [facility] Work Phone: Comment on above: PATIENT WAS FASTINGP ERFORMED BY: Hobzy[address] [id number] BY: HobzyVirtua Our Lady of Lourdes Medical CenterFfxdau4271 [facility] [id number] Monocytes/100 WBC Auto (Bld) 6 % Normal [facility] Work Phone: Neutrophils (Bld) [#/Vol] 5.3 {x10E3/uL} Normal 1.4-7.0 [facility] Work Phone: Comment on above: PATIENT WAS FASTINGP ERFORMED BY: Hobzy[address] [id number] BY: [employer] Yakoqs5362 [facility] [id number] Neutrophils (Bld) [#/Vol] 5.3 10*3/uL Normal 1.4-7.0 [facility]; [facility] Work Phone: Comment on above: PATIENT WAS FASTINGP ERFORMED BY: Hobzy[address] [id number] BY: HobzyVirtua Our Lady of Lourdes Medical CenterYkrskb9488 [facility] [id number] Neutrophils Auto #/vol (Bld) 5.3 {x10E3/uL} Normal 1.4-7.0 [facility] Work Phone: Neutrophils/100 WBC (Bld) 65 % Normal [facility] Work Phone: Comment on above: PATIENT WAS FASTINGP ERFORMED BY: Hobzy[address] [id number] BY: HobzyM[place] 6338170 [facility] [id number] Neutrophils/100 WBC Auto (Bld) 65 % Normal [facility] Work Phone: Platelets (Bld) [#/Vol] 208 {x10E3/uL} Normal 150-379 [facility] Work Phone: Comment on above: PATIENT WAS FASTINGP ERFORMED BY: LabFashion Republic[address] [id number] BY: JC [facility] Zifxng6745 [address] RoadDuUNC Health Nash [id number] Platelets (Bld) [#/Vol] 208 10*3/uL Normal 150-379 [facility]; [facility] Work Phone: Comment on above: PATIENT WAS FASTINGP ERFORMED BY: Hobzy[address] [id number] BY: JC [facility] Zgvrue4017 Mc[address] RoadScionHealth [id number] Platelets Auto #/vol (Bld) 208 {x10E3/uL} Normal 150-379 [facility] Work Phone: RBC (Bld) [#/Vol] 4.47 {x10E6/uL} Normal 3.77-5.28 [facility] Internal Medicine Work Phone: Comment on above: PATIENT WAS FASTINGP ERFORMED BY: Hobzy[address] [id number] BY: LabCo Edehxo6[address] [facility] [id number] RBC (Bld) [#/Vol] 4.47 10*6/uL Normal 3.77-5.28 [facility] Internal Medicine; [facility] Work Phone: Comment on above: PATIENT WAS FASTINGP ERFORMED BY: Hobzy[address] [id number] BY: JC [facility] Jasbdp6464 [address] [facility] [id number] RBC Auto #/vol (Bld) 4.47 {x10E6/uL} Normal 3.77-5.28 [facility] Work Phone: WBC (Bld) [#/Vol] 8.1 {x10E3/uL} Normal 3.4-10.8 [facility] prehensive Internal Medicine Work Phone: Comment on above: PATIENT WAS FASTINGP ERFORMED BY: DripDrop[address] [id number] BY: Hobzy Yfqrcq1722 [facility] [id number] WBC (Bld) [#/Vol] 8.1 10*3/uL Normal 3.4-10.8 [facility] Internal Medicine; [facility] Work Phone: Comment on above: PATIENT WAS FASTINGP ERFORMED BY: DripDrop[address] [id number] BY: Astrid70 [facility] [id number] WBC Auto #/vol (Bld) 8.1 {x10E3/uL} Normal 3.4-10.8 [facility] Work Phone: LIPOPROTEIN, BLD, BY NMR (90 139)Ordered By: Flower Cutter on 05-05-2018 Cholesterol in HDL mass conc 51 mg/dL Normal [facility] Work Phone: Comment on above: PATIENT WAS FASTINGP ERFORMED BY: DripDrop[address] [id number] BY: Astrid70 [facility] [id number] Cholesterol in LDL mass conc 134 mg/dL Abnormal 0-99 [facility] Work Phone: Comment on above: . Optimal < 100 Abov e optimal 100 - 129 Borderline 130 - 159 High 160 - 189 Very high > 189 .LDL-C is inaccurate if patient is non-fasting. PATIENT WAS FASTINGP ERFORMED BY: TimZon [address] [id number] BY: Hobzy Pwdvcd7595 [facility] [id number] Cholesterol mass conc 199 mg/dL Normal 100-199 [facility] prehensive Internal Medicine Work Phone: Comment on above: PATIENT WAS FASTINGP ERFORMED BY: DripDrop[address] [id number] BY: [facility]6370 [facility] [id number] Lipoprotein.alpha molar conc 34.8 umol/L Normal [facility] Work Phone: Comment on above: PATIENT WAS FASTINGP ERFORMED BY: SendRR Vscrwwkkle545[address] [id number] BY: [facility]6370 [facility] [id number] Lipoprotein.beta.subp article Entitic length 20.7 nm Normal [facility] Work Phone: Comment on above: INTERPRETATIVE INFORMATION PARTICLE CONCENTRATION AND SIZE <--Lower CVD Risk Higher CVD Risk--> LDL AND HDL PARTICLES Percentile in Reference Population HDL-P (total) High 75th 50th 25th Low >34.9 34.9 30.5 26.7 <26.7 . Small LDL-P Low 25th 50th 75th High <117 117 527 839 >839 . LDL Size <-Large (Pattern A)-> <-Small (Pattern B)-> 23.0 20.6 20.5 19.0 Small LDL-P and LDL Size are associated with CVD risk, but not afterLDL-P is taken into account. .These assays were developed and their performance characteristicsdetermined by [employer]. These assays have not been cleared by [place] Food and Drug Administration. The clinical utility of theselaboratory values have not been fully established. PATIENT WAS FASTINGP ERFORMED BY: DripDrop[address] [id number] BY: CB [facility] Zmkvar5774 [address] RoadDublin [place] [id number] Lipoprotein.beta.subp article molar conc 1730 nmol/L Abnormal [facility] Work Phone: Comment on above: Low < 1000 Moderate 1000 - 1299 Borderline-High 1300 - 1599 High 1600 - 2000 Very High > 2000 PATIENT WAS FASTINGP ERFORMED BY: [facility] [address] [id number] BY: [facility] Atfuev7699 [address] RoadDublin [place] [id number] Lipoprotein.beta.subp article.small molar conc 741 nmol/L Abnormal [facility] Work Phone: Comment on above: PATIENT WAS FASTINGP ERFORMED BY: [facility] [address] [id number] BY: [facility] Ywvzzv2594 [address] [facility] [place] [id number] Triglyceride mass conc 70 mg/dL Normal 0-149 [facility] Work Phone: Comment on above: PATIENT WAS FASTINGP ERFORMED BY: [facility] [address] [id number] BY: [facility] Wrkbra8074 [facility] [id number] METABOLIC PANEL, COMPREHENSI VE ([id number])Ordered By: Flower Cutter on 05-05-2018 Albumin mass conc 4.7 g/dL Normal 3.5-4.8 Compreh ensive Internal Medicine Work Phone: Comment on above: PATIENT WAS FASTINGP ERFORMED BY: LabCo[address] [id number] BY: [facility] Mqjtlp9827 [facility] [id number] Albumin/Globulin mass ratio 1.7 {ratio} Normal 1.2-2.2 [facility] Work Phone: Comment on above: PATIENT WAS FASTINGP ERFORMED BY: LabCo[address] [id number] BY: JC [facility] Htnsmo5820 [address] RoadDublin [place] [id number] ALP [Catalytic activity/Vol] 85 U/L Normal 39-117 [facility]; [facility] Work Phone: Comment on above: PATIENT WAS FASTINGP ERFORMED BY: [address] [id number] BY: JC [facility] Cpmcpl3571 [address] RoadDublin [place] [id number] ALP enzyme act/vol 85 [iU]/L Normal 39-117 [facility] Internal Medicine Work Phone: Comment on above: PATIENT WAS FASTINGP ERFORMED BY: Lab[address] [id number] BY: JC [facility] Dwjtgw2947 [address] RoadDublin [place] [id number] ALT [Catalytic activity/Vol] 17 U/L Normal 0-32 [facility]; [facility] Internal Medicine Work Phone: Comment on above: PATIENT WAS FASTINGP ERFORMED BY: [address] [id number] BY: JC [facility] Muwqct8540 [address] RoadDublin [place] [id number] ALT enzyme act/vol 17 [iU]/L Normal 0-32 [facility] Internal Medicine Work Phone: Comment on above: PATIENT WAS FASTINGP ERFORMED BY: Lab[address] [id number] BY: JC [facility] Lmviwd0957 [address] RoadDublin [place] [id number] AST [Catalytic activity/Vol] 19 U/L Normal 0-40 [facility]; [facility] Work Phone: Comment on above: PATIENT WAS FASTINGP ERFORMED BY: LabCo[address] [id number] BY: JC [facility] Pkdrbq6523 [address] RoadDublin [place] [id number] AST enzyme act/vol 19 [iU]/L Normal 0-40 Compre hensive Internal Medicine Work Phone: Comment on above: PATIENT WAS FASTINGP ERFORMED BY: LabCo[address] [id number] BY: JC [facility] Brkpwi4574 [address] RoadDublin [place] [id number] Bilirubin mass conc 0.9 mg/dL Normal 0.0-1.2 Compr ehensive Internal Medicine Work Phone: Comment on above: PATIENT WAS FASTINGP ERFORMED BY: Lab[address] [id number] BY: LabCoMegan [place]ille 6338170 [address] RoadWilson Medical Centerin [place] [id number] Calcium mass conc 9.8 mg/dL Normal 8.7-10.3 Compreh ensive Internal Medicine Work Phone: Comment on above: PATIENT WAS FASTINGP ERFORMED BY: Lab[address] [id number] BY: JC [facility] Cpfbqs6284 [address] RoadDuin [place] [id number] Chloride molar conc 99 mmol/L Normal 96-106 Compr ensive Internal Medicine Work Phone: Comment on above: PATIENT WAS FASTINGP ERFORMED BY: [address] [id number] BY: LabCo Apriiz1767 [address] RoadDublin [place] [id number] CO2 molar conc 24 mmol/L Normal 20-29 Comprehens sue Internal Medicine Work Phone: Comment on above: PATIENT WAS FASTINGP ERFORMED BY: Lab[address] [id number] BY: [facility] Jrglsm0020 [address] RoadDublin [place] [id number] Creatinine mass conc 0.77 mg/dL Normal 0.57-1.00 Comp rehensive Internal Medicine Work Phone: Comment on above: PATIENT WAS FASTINGP ERFORMED BY: LabCo[address] [id number] BY: [facility] Gqeyru1512 [address] RoadDublin [place] [id number] GFR/1.73 sq M predicted among blacks CKD-EPI vol rate/area (S/P/Bld) 87 mL/min/1.73 Normal Comprehensiv e Internal Medicine Work Phone: Comment on above: PATIENT WAS FASTINGP ERFORMED BY: LabCo[address] [id number] BY: [facility] Nkkans7[address] [facility] [place] [id number] GFR/1.73 sq M predicted among non-blacks CKD-EPI vol rate/area (S/P/Bld) 76 mL/min/1.73 Normal [facility] Work Phone: Comment on above: PATIENT WAS FASTINGP ERFORMED BY: Lab[address] [id number] BY: JC [facility] Igjehs5065 [address] [facility] [id number] Globulin (S) [Mass/Vol] 2.8 g/dL Normal 1.5-4.5 [facility] Work Phone: Comment on above: PATIENT WAS FASTINGP ERFORMED BY: frenting[address] [id number] BY: [facility] Tqtwel9681 [address] [facility] [id number] Globulin Calculated mass conc (S) 2.8 g/dL Normal 1.5-4.5 [facility] Work Phone: Glucose mass conc 90 mg/dL Normal 65-99 Compreh ensive Internal Medicine Work Phone: Comment on above: PATIENT WAS FASTINGP ERFORMED BY: LabFashion Republic[address] [id number] BY: [facility] Brqwai3723 [address] [facility] [id number] Potassium molar conc 4.3 mmol/L Normal 3.5-5.2 Comp rehensive Internal Medicine Work Phone: Comment on above: PATIENT WAS FASTINGP ERFORMED BY: LabCo[address] [id number] BY: JC [facility] Pxihsc5389 [address] [facility] [id number] Protein mass conc 7.5 g/dL Normal 6.0-8.5 Compreh ensive Internal Medicine Work Phone: Comment on above: PATIENT WAS FASTINGP ERFORMED BY: LabCo[address] [id number] BY: JC [facility] Gtkcjb2582 [facility] [id number] Sodium molar conc 141 mmol/L Normal 134-144 Compreh ensive Internal Medicine Work Phone: Comment on above: PATIENT WAS FASTINGP ERFORMED BY: LabCo[address] [id number] BY: JC [facility] Xvkpna2263 [facility] [id number] Urea nitrogen mass conc 25 mg/dL Normal 8- [facility] Work Phone: Comment on above: PATIENT WAS FASTINGP ERFORMED BY: Hobzy[address] [id number] BY: JC [facility] Unlmuz3161 [facility] [id number] Urea nitrogen/Creatinine mass ratio 32 mg/mg Abnormal 12- [facility] Work Phone: Comment on above: PATIENT WAS FASTINGP ERFORMED BY: frenting[address] [id number] BY: JC [facility] Xqwybe8570 [facility] [id number] CBC W/AUTO DIFF WBC ([id number])O rdered By: Flower Cutter on 06-15-2017 Basophils (Bld) [#/Vol] 0.0 {x10E3/uL} Normal 0.0-0.2 [facility] Work Phone: Comment on above: PATIENT NOT FASTINGP ERFORMED BY: JC [facility] Nwzwdu7450 [address] [facility] [id number] Basophils (Bld) [#/Vol] 0.0 10*3/uL Normal 0.0-0.2 [facility]; [facility] Work Phone: Comment on above: PATIENT NOT FASTINGP ERFORMED BY: CB [facility] Iprkwg2408 [address] [facility] [id number] Basophils Auto #/vol (Bld) 0.0 {x10E3/uL} Normal 0.0-0.2 [facility] Work Phone: Basophils/100 WBC (Bld) 1 % Normal [facility] Work Phone: Comment on above: PATIENT NOT FASTINGP ERFORMED BY: [facility]Gold[facility] Xwzxek8123 [address] [facility] [id number] Basophils/100 WBC Auto (Bld) 1 % Normal [facility] Work Phone: Eosinophils (Bld) [#/Vol] 0.2 {x10E3/uL} Normal 0.0-0.4 [facility] Work Phone: Comment on above: PATIENT NOT FASTINGP ERFORMED BY: [facility] Viefcr8433 [facility] [id number] Eosinophils (Bld) [#/Vol] 0.2 10*3/uL Normal 0.0-0.4 [facility]; [facility] Work Phone: Comment on above: PATIENT NOT FASTINGP ERFORMED BY: CB [facility] Nrzamr9230 [address] [facility] [id number] Eosinophils Auto #/vol (Bld) 0.2 {x10E3/uL} Normal 0.0-0.4 [facility] Work Phone: Eosinophils/100 WBC (Bld) 2 % Normal [facility] Work Phone: Comment on above: PATIENT NOT FASTINGP ERFORMED BY: CB [facility] Ietvph0399 [address] [facility] [id number] Eosinophils/100 WBC Auto (Bld) 2 % Normal [facility] Work Phone: Erythrocyte distribution width (RBC) [Ratio] 14.5 % Normal 12.3-15.4 [facility] Work Phone: Comment on above: PATIENT NOT FASTINGP ERFORMED BY: [facility] Nefqrx9840 [address] [facility] [id number] Erythrocyte distribution width Auto Ratio (RBC) 14.5 % Normal 12.3-15.4 [facility] Work Phone: Hematocrit (Bld) [Volume fraction] 40.6 % Normal 34.0-46.6 [facility] Work Phone: Comment on above: PATIENT NOT FASTINGP ERFORMED BY: JC [facility] Sujdni4771 [address] [facility] [id number] Hematocrit Auto Volume Fraction (Bld) 40.6 % Normal 34.0-46.6 [facility] Internal Medicine Work Phone: Hemoglobin mass conc (Bld) 13.6 g/dL Normal 11.1-15.9 [facility] Work Phone: Comment on above: Please note refere nce interval change PATIENT NOT FASTINGP ERFORMED BY: [facility] Ckalyb9063 [address] [facility] [id number] Immature granulocytes #/vol (Bld) 0.0 {x10E3/uL} Normal 0.0-0.1 [facility] Work Phone: Comment on above: PATIENT NOT FASTINGP ERFORMED BY: CB [facility] Wblfio3727 [address] [facility] [place] [id number] Immature granulocytes (Bld) [#/Vol] 0.0 10*3/uL Normal 0.0-0.1 [facility]; [facility] Work Phone: Comment on above: PATIENT NOT FASTINGP ERFORMED BY: CB [facility] Vltbag[address] [facility] [place] [id number] Immature granulocytes/100 WBC (Bld) 0 % Normal [facility] Work Phone: Comment on above: PATIENT NOT FASTINGP ERFORMED BY: JC LabComag BartlettJxtqxq5312 [address] [facility] [id number] Lymphocytes (Bld) [#/Vol] 2.1 {x10E3/uL} Normal 0.7-3.1 [facility] Work Phone: Comment on above: PATIENT NOT FASTINGP ERFORMED BY: JC [facility] Mkiiky0416 [address] [facility] [id number] Lymphocytes (Bld) [#/Vol] 2.1 10*3/uL Normal 0.7-3.1 [facility]; [facility] Work Phone: Comment on above: PATIENT NOT FASTINGP ERFORMED BY: JC LabComag BartlettByrsqw3895 [address] [facility] [id number] Lymphocytes Auto #/vol (Bld) 2.1 {x10E3/uL} Normal 0.7-3.1 [facility] Work Phone: Lymphocytes/100 WBC (Bld) 27 % Normal [facility] Work Phone: Comment on above: PATIENT NOT FASTINGP ERFORMED BY: JC ObinnaTamir BartlettYwhifv7359 [facility] [id number] Lymphocytes/100 WBC Auto (Bld) 27 % Normal [facility] Work Phone: MCH (RBC) [Entitic mass] 29.4 pg Normal 26.6-33.0 [facility] Work Phone: Comment on above: PATIENT NOT FASTINGP ERFORMED BY: JC [facility] Cvgrrz0948 [address] [facility] [id number] MCH Auto Entitic mass (RBC) 29.4 pg Normal 26.6-33.0 [facility] Work Phone: MCHC (RBC) [Mass/Vol] 33.5 g/dL Normal 31.5-35.7 [facility] prehensive Internal Medicine Work Phone: Comment on above: PATIENT NOT FASTINGP ERFORMED BY: JC [facility] Eynvqs0928 [facility] [id number] MCHC Auto mass conc (RBC) 33.5 g/dL Normal 31.5-35.7 [facility] Work Phone: MCV (RBC) [Entitic vol] 88 fL Normal 79-97 [facility] Work Phone: Comment on above: PATIENT NOT FASTINGP ERFORMED BY: [facility] Bcxgnq6241 [facility] [id number] MCV Auto Entitic volume (RBC) 88 fL Normal 79-97 [facility] Work Phone: Monocytes (Bld) [#/Vol] 0.3 {x10E3/uL} Normal 0.1-0.9 [facility] Work Phone: Comment on above: PATIENT NOT FASTINGP ERFORMED BY: JC [facility] Sbfdhu8174 [facility] [id number] Monocytes (Bld) [#/Vol] 0.3 10*3/uL Normal 0.1-0.9 [facility]; [facility] Work Phone: Comment on above: PATIENT NOT FASTINGP ERFORMED BY: [facility] Aamvkl4988 [facility] [id number] Monocytes Auto #/vol (Bld) 0.3 {x10E3/uL} Normal 0.1-0.9 [facility] Work Phone: Monocytes/100 WBC (Bld) 4 % Normal [facility] Work Phone: Comment on above: PATIENT NOT FASTINGP ERFORMED BY: LabCorewell [facility]6370 [facility] [id number] Monocytes/100 WBC Auto (Bld) 4 % Normal [facility] Work Phone: Neutrophils (Bld) [#/Vol] 5.0 {x10E3/uL} Normal 1.4-7.0 [facility] Work Phone: Comment on above: PATIENT NOT FASTINGP ERFORMED BY: LabCorewell [facility]6370 [facility] [id number] Neutrophils (Bld) [#/Vol] 5.0 10*3/uL Normal 1.4-7.0 [facility]; [facility] Work Phone: Comment on above: PATIENT NOT FASTINGP ERFORMED BY: CB [facility] Ppcoeb1679 [address] RoadDublin [place] [id number] Neutrophils Auto #/vol (Bld) 5.0 {x10E3/uL} Normal 1.4-7.0 [facility] Work Phone: Neutrophils/100 WBC (Bld) 66 % Normal [facility] Work Phone: Comment on above: PATIENT NOT FASTINGP ERFORMED BY: CB [facility] Haxliw3553 [address] RoadDublin [place] [id number] Neutrophils/100 WBC Auto (Bld) 66 % Normal [facility] Work Phone: Platelets (Bld) [#/Vol] 211 {x10E3/uL} Normal 150-379 [facility] Work Phone: Comment on above: PATIENT NOT FASTINGP ERFORMED BY: CB [facility] Mzxtfj0085 [address] RoadDublin [place] [id number] Platelets (Bld) [#/Vol] 211 10*3/uL Normal 150-379 [facility]; [facility] Work Phone: Comment on above: PATIENT NOT FASTINGP ERFORMED BY: CB [facility] Akibia4745 [address] RoadDublin [place] [id number] Platelets Auto #/vol (Bld) 211 {x10E3/uL} Normal 150-379 [facility] Work Phone: RBC (Bld) [#/Vol] 4.62 {x10E6/uL} Normal 3.77-5.28 [facility] Internal Medicine Work Phone: Comment on above: PATIENT NOT FASTINGP ERFORMED BY: CB [facility] Uwdzfe6830 [address] RoadDublin [place] [id number] RBC (Bld) [#/Vol] 4.62 10*6/uL Normal 3.77-5.28 Compr ehensive Internal Medicine; [facility] Work Phone: Comment on above: PATIENT NOT FASTINGP ERFORMED BY: JC [facility] Gbyrxv2565 [address] [facility] [id number] RBC Auto #/vol (Bld) 4.62 {x10E6/uL} Normal 3.77-5.28 [facility] Work Phone: WBC (Bld) [#/Vol] 7.6 {x10E3/uL} Normal 3.4-10.8 [facility] Work Phone: Comment on above: PATIENT NOT FASTINGP ERFORMED BY: JC [facility] Obobbw6983 [facility] [id number] WBC (Bld) [#/Vol] 7.6 10*3/uL Normal 3.4-10.8 [facility]; [facility] Work Phone: Comment on above: PATIENT NOT FASTINGP ERFORMED BY: JC LabComag BartlettAtorvp2891 [facility] [id number] WBC Auto #/vol (Bld) 7.6 {x10E3/uL} Normal 3.4-10.8 [facility] Work Phone: METABOLIC PANEL, COMPREHENSI VE ([id number])Ordered By: Flower Cutter on 06-15-2017 Albumin mass conc 4.6 g/dL Normal 3.5-4.8 Compreh [facility] Internal Medicine Work Phone: Comment on above: PATIENT NOT FASTINGP ERFORMED BY: JC [facility] Ufejro4815 [facility] [id number] Albumin/Globulin mass ratio 1.6 {ratio} Normal 1.2-2.2 [facility] Work Phone: Comment on above: PATIENT NOT FASTINGP ERFORMED BY: JC [facility] Psdszx4009 [facility] [id number] ALP [Catalytic activity/Vol] 93 U/L Normal 39-117 [facility]; [facility] Work Phone: Comment on above: PATIENT NOT FASTINGP ERFORMED BY: JC [facility] Okidbx1658 [address] RoadDublin [place] [id number] ALP enzyme act/vol 93 [iU]/L Normal 39-117 [facility] Internal Medicine Work Phone: Comment on above: PATIENT NOT FASTINGP ERFORMED BY: CB [facility] Tmwjsf6962 [address] RoadDublin [place] [id number] ALT [Catalytic activity/Vol] 16 U/L Normal 0-32 [facility]; [facility] Internal Medicine Work Phone: Comment on above: PATIENT NOT FASTINGP ERFORMED BY: CB [facility] Dzjble4264 [address] RoadDublin [place] [id number] ALT enzyme act/vol 16 [iU]/L Normal 0-32 [facility] Internal Medicine Work Phone: Comment on above: PATIENT NOT FASTINGP ERFORMED BY: [facility] Wchwyk0002 [address] RoadDublin [place] [id number] AST [Catalytic activity/Vol] 15 U/L Normal 0-40 [facility] Internal Medicine; [facility] Internal Medicine Work Phone: Comment on above: PATIENT NOT FASTINGP ERFORMED BY: [facility] Qxozon9854 [address] RoadDublin [place] [id number] AST enzyme act/vol 15 [iU]/L Normal 0-40 [facility] Internal Medicine Work Phone: Comment on above: PATIENT NOT FASTINGP ERFORMED BY: [facility] Wprqjf2647 [address] RoadDublin [place] [id number] Bilirubin mass conc 0.6 mg/dL Normal 0.0-1.2 [facility] Internal Medicine Work Phone: Comment on above: PATIENT NOT FASTINGP ERFORMED BY: CB [facility] Vtavwr8368 [address] RoadDublin [place] [id number] Calcium mass conc 9.7 mg/dL Normal 8.7-10.3 [facility] Internal Medicine Work Phone: Comment on above: PATIENT NOT FASTINGP ERFORMED BY: [facility] Hunnhh9480 [address] RoadDublin [place] [id number] Chloride molar conc 96 mmol/L Normal 96-106 Compr ehensive Internal Medicine Work Phone: Comment on above: PATIENT NOT FASTINGP ERFORMED BY: JC [facility] Wkzron7692 [address] [facility]bl[facility] [place] [id number] CO2 molar conc 28 mmol/L Normal 18-29 Comprehens sue Internal Medicine Work Phone: Comment on above: PATIENT NOT FASTINGP ERFORMED BY: JC [facility] Rtzswo1370 [address] [facility] [place] [id number] Creatinine mass conc 0.69 mg/dL Normal 0.57-1.00 Comp [facility] centerensive Internal Medicine Work Phone: Comment on above: PATIENT NOT FASTINGP ERFORMED BY: JC [facility] Iediqi5269 [address] [facility] [id number] GFR/1.73 sq M predicted among blacks CKD-EPI vol rate/area (S/P/Bld) 99 mL/min/1.73 Normal Comprehensiv e Internal Medicine Work Phone: Comment on above: PATIENT NOT FASTINGP ERFORMED BY: JC [facility] Qrnbuo2797 [address] RoadWilson Medical Centerin [place] [id number] GFR/1.73 sq M predicted among non-blacks CKD-EPI vol rate/area (S/P/Bld) 86 mL/min/1.73 Normal [facility] Work Phone: Comment on above: PATIENT NOT FASTINGP ERFORMED BY: JC [facility] Gghqnr7[address] [facility] [id number] Globulin (S) [Mass/Vol] 2.9 g/dL Normal 1.5-4.5 [facility] Work Phone: Comment on above: PATIENT NOT FASTINGP ERFORMED BY: JC [facility] Sfiuon36[address] [facility] [place] [id number] Globulin Calculated mass conc (S) 2.9 g/dL Normal 1.5-4.5 [facility] Work Phone: Glucose mass conc 85 mg/dL Normal 65-99 Compreh ensive Internal Medicine Work Phone: Comment on above: PATIENT NOT FASTINGP ERFORMED BY: JC LabComag Lokrhs5009 [address] RoadDublin [place] [id number] Potassium molar conc 4.5 mmol/L Normal 3.5-5.2 Comp rehensive Internal Medicine Work Phone: Comment on above: PATIENT NOT FASTINGP ERFORMED BY: JC Samina Yrdajz3100 [address] RoadDublin [place] [id number] Protein mass conc 7.5 g/dL Normal 6.0-8.5 Compreh ensive Internal Medicine Work Phone: Comment on above: PATIENT NOT FASTINGP ERFORMED BY: JC [facility] Alsnyj9942 [address] RoadDublin [place] [id number] Sodium molar conc 140 mmol/L Normal 134-144 Compreh ensive Internal Medicine Work Phone: Comment on above: PATIENT NOT FASTINGP ERFORMED BY: JC Lab[facility] BartlettFdtkbg4413 [address] RoadDublin [place] [id number] Urea nitrogen mass conc 21 mg/dL Normal 8- [facility] Work Phone: Comment on above: PATIENT NOT FASTINGP ERFORMED BY: JC Lab[facility] BartlettZrjzro7828 [address] RoadDublin [place] [id number] Urea nitrogen/Creatinine mass ratio 30 mg/mg Abnormal 07-09 [facility] Work Phone: Comment on above: PATIENT NOT FASTINGP ERFORMED BY: JC LabTamir BartlettYmnska88[address] [facility] [place] [id number] MICROALBUMINOrdered By: Syst em Graphic Coordinator on 06-15-2017 Albumin DL <= 20 mg/L (U) [Mass/Vol] mg/dL Normal [facility]; [facility] Work Phone: Comment on above: PATIENT NOT FASTINGP ERFORMED BY: JC [facility] Bhakcz8665 [address] RoadDublin [place] [id number] Albumin DL <= 20 mg/L mass conc (U) mg/dL Normal [facility] Work Phone: Comment on above: PATIENT NOT FASTINGP ERFORMED BY: JC [facility] Wmvlzw8861 [address] RoadDublin [place] [id number] Albumin/Creatinine mass ratio (U) <11.0 Normal 0.0-30.0 [facility] Work Phone: Comment on above: PATIENT NOT FASTINGP ERFORMED BY: [facility]Gold[facility] Cvhesj4178 [facility] [id number] Creatinine mass conc (U) 27.2 mg/dL Normal [facility] Work Phone: Comment on above: PATIENT NOT FASTINGP ERFORMED BY: LabCorewell [facility]6370 [facility] [id number] HgA1C , Office ([id number])Ordere d By: Ivon Ramos on 02-09-2017 Hemoglobin A1c/Hemoglobin.total mass fraction (Bld) 5.3 % Normal 4.6 - 7.1 Comprehensiv e Internal Medicine Work Phone: CBC W/AUTO DIFF WBC ([id number])O rdered By: Flower Cutter on 01-20-2017 Basophils (Bld) [#/Vol] 0.0 {x10E3/uL} Normal 0.0-0.2 [facility] Work Phone: Comment on above: PATIENT WAS FASTINGP ERFORMED BY: frentingCorewell Health Butterworth Hospital6370 [facility] [id number] Basophils (Bld) [#/Vol] 0.0 10*3/uL Normal 0.0-0.2 [facility]; [facility] Work Phone: Comment on above: PATIENT WAS FASTINGP ERFORMED BY: LabCorewell [facility]6370 [facility] [id number] Basophils Auto #/vol (Bld) 0.0 {x10E3/uL} Normal 0.0-0.2 [facility] Work Phone: Basophils/100 WBC (Bld) 0 % Normal [facility] Work Phone: Comment on above: PATIENT WAS FASTINGP ERFORMED BY: LabCoVirtua [facility] Medical CenterQdrfjq4817 [facility] [id number] Basophils/100 WBC Auto (Bld) 0 % Normal [facility] Work Phone: Eosinophils (Bld) [#/Vol] 0.1 {x10E3/uL} Normal 0.0-0.4 [facility] Work Phone: Comment on above: PATIENT WAS FASTINGP ERFORMED BY: [place] [id number] [facility] [id number] Eosinophils (Bld) [#/Vol] 0.1 10*3/uL Normal 0.0-0.4 [facility]; [facility] Work Phone: Comment on above: PATIENT WAS FASTINGP ERFORMED BY: [place] [id number] [facility] [id number] Eosinophils Auto #/vol (Bld) 0.1 {x10E3/uL} Normal 0.0-0.4 [facility] Work Phone: Eosinophils/100 WBC (Bld) 2 % Normal [facility] Work Phone: Comment on above: PATIENT WAS FASTINGP ERFORMED BY: [place] [id number] [facility] [id number] Eosinophils/100 WBC Auto (Bld) 2 % Normal [facility] Work Phone: Erythrocyte distribution width (RBC) [Ratio] 15.1 % Normal 12.3-15.4 [facility] Work Phone: Comment on above: PATIENT WAS FASTINGP ERFORMED BY: [place] [id number] [facility] [id number] Erythrocyte distribution width Auto Ratio (RBC) 15.1 % Normal 12.3-15.4 [facility] Work Phone: Hematocrit (Bld) [Volume fraction] 40.6 % Normal 34.0-46.6 [facility] Work Phone: Comment on above: PATIENT WAS FASTINGP ERFORMED BY: [place] 7139670 [facility] [id number] Hematocrit Auto Volume Fraction (Bld) 40.6 % Normal 34.0-46.6 Comprehens sue Internal Medicine Work Phone: Hemoglobin mass conc (Bld) 13.2 g/dL Normal 11.1-15.9 [facility] Work Phone: Comment on above: PATIENT WAS FASTINGP ERFORMED BY: LabGold[facility] Fvcltx1387 [address] [facility] [id number] Immature granulocytes #/vol (Bld) 0.0 {x10E3/uL} Normal 0.0-0.1 [facility] Work Phone: Comment on above: PATIENT WAS FASTINGP ERFORMED BY: LabCoMegan [place] 6338170 [address] [facility] [id number] Immature granulocytes (Bld) [#/Vol] 0.0 10*3/uL Normal 0.0-0.1 [facility]; [facility] Work Phone: Comment on above: PATIENT WAS FASTINGP ERFORMED BY: [place] [id number] [facility] [id number] Immature granulocytes/100 WBC (Bld) 0 % Normal [facility] Work Phone: Comment on above: PATIENT WAS FASTINGP ERFORMED BY: LabCorewell [facility]worth Hospital6370 [facility] [id number] Lymphocytes (Bld) [#/Vol] 1.9 {x10E3/uL} Normal 0.7-3.1 [facility] Work Phone: Comment on above: PATIENT WAS FASTINGP ERFORMED BY: LabCorewell [facility] Hospital6370 [facility] [id number] Lymphocytes (Bld) [#/Vol] 1.9 10*3/uL Normal 0.7-3.1 [facility]; [facility] Work Phone: Comment on above: PATIENT WAS FASTINGP ERFORMED BY: LabCorewell [facility] Hospital6[address] [facility] [id number] Lymphocytes Auto #/vol (Bld) 1.9 {x10E3/uL} Normal 0.7-3.1 [facility] Work Phone: Lymphocytes/100 WBC (Bld) 26 % Normal [facility] Work Phone: Comment on above: PATIENT WAS FASTINGP ERFORMED BY: [facility]6370 [facility] [id number] Lymphocytes/100 WBC Auto (Bld) 26 % Normal [facility] Work Phone: MCH (RBC) [Entitic mass] 28.6 pg Normal 26.6-33.0 [facility] Work Phone: Comment on above: PATIENT WAS FASTINGP ERFORMED BY: [facility]6370 [facility] [id number] MCH Auto Entitic mass (RBC) 28.6 pg Normal 26.6-33.0 [facility] Internal Medicine Work Phone: MCHC (RBC) [Mass/Vol] 32.5 g/dL Normal 31.5-35.7 [facility] Internal Medicine Work Phone: Comment on above: PATIENT WAS FASTINGP ERFORMED BY: [place] [id number] [facility] [id number] MCHC Auto mass conc (RBC) 32.5 g/dL Normal 31.5-35.7 [facility] Internal Medicine Work Phone: MCV (RBC) [Entitic vol] 88 fL Normal 79-97 [facility] Internal Medicine Work Phone: Comment on above: PATIENT WAS FASTINGP ERFORMED BY: [facility]6370 [facility] [id number] MCV Auto Entitic volume (RBC) 88 fL Normal 79-97 [facility] Internal Medicine Work Phone: Monocytes (Bld) [#/Vol] 0.4 {x10E3/uL} Normal 0.1-0.9 [facility] Internal Medicine Work Phone: Comment on above: PATIENT WAS FASTINGP ERFORMED BY: [facility]6370 [facility] [id number] Monocytes (Bld) [#/Vol] 0.4 10*3/uL Normal 0.1-0.9 [facility]; [facility] Work Phone: Comment on above: PATIENT WAS FASTINGP ERFORMED BY: JC [facility] HospitalElena Pikqur1521 [facility] [id number] Monocytes Auto #/vol (Bld) 0.4 {x10E3/uL} Normal 0.1-0.9 [facility] Work Phone: Monocytes/100 WBC (Bld) 6 % Normal [facility] Work Phone: Comment on above: PATIENT WAS FASTINGP ERFORMED BY: JC [facility] Bgnnwx7397 [address] [facility] [id number] Monocytes/100 WBC Auto (Bld) 6 % Normal [facility] Work Phone: Neutrophils (Bld) [#/Vol] 5.0 {x10E3/uL} Normal 1.4-7.0 [facility] Work Phone: Comment on above: PATIENT WAS FASTINGP ERFORMED BY: JC Gonzalez Vzqcqu9314 [facility] [id number] Neutrophils (Bld) [#/Vol] 5.0 10*3/uL Normal 1.4-7.0 [facility]; [facility] Work Phone: Comment on above: PATIENT WAS FASTINGP ERFORMED BY: JC Bartlettlin6370 [facility] [id number] Neutrophils Auto #/vol (Bld) 5.0 {x10E3/uL} Normal 1.4-7.0 [facility] Work Phone: Neutrophils/100 WBC (Bld) 66 % Normal [facility] Work Phone: Comment on above: PATIENT WAS FASTINGP ERFORMED BY: JC [facility] Mstfsl3918 [facility] [id number] Neutrophils/100 WBC Auto (Bld) 66 % Normal [facility] Work Phone: Platelets (Bld) [#/Vol] 207 {x10E3/uL} Normal 150-379 [facility] Work Phone: Comment on above: PATIENT WAS FASTINGP ERFORMED BY: JC [facility] Oogunz9689 [facility] [id number] Platelets (Bld) [#/Vol] 207 10*3/uL Normal 150-379 [facility]; [facility] Work Phone: Comment on above: PATIENT WAS FASTINGP ERFORMED BY: JC LabGold[facility] Whdjom0759 [address] [facility] [place] [id number] Platelets Auto #/vol (Bld) 207 {x10E3/uL} Normal 150-379 [facility] Work Phone: RBC (Bld) [#/Vol] 4.61 {x10E6/uL} Normal 3.77-5.28 [facility] Internal Medicine Work Phone: Comment on above: PATIENT WAS FASTINGP ERFORMED BY: JC Bartlettlin6370 [facility] [id number] RBC (Bld) [#/Vol] 4.61 10*6/uL Normal 3.77-5.28 [facility] Internal Medicine; [facility] Work Phone: Comment on above: PATIENT WAS FASTINGP ERFORMED BY: JC [facility]eboahGold[facility] Zvoyja4079 [facility] [id number] RBC Auto #/vol (Bld) 4.61 {x10E6/uL} Normal 3.77-5.28 [facility] Internal Medicine Work Phone: WBC (Bld) [#/Vol] 7.5 {x10E3/uL} Normal 3.4-10.8 [facility] Internal Medicine Work Phone: Comment on above: PATIENT WAS FASTINGP ERFORMED BY: JC [facility] Cvgwca[address] [facility] [place] [id number] WBC (Bld) [#/Vol] 7.5 10*3/uL Normal 3.4-10.8 [facility] Internal Medicine; [facility] Work Phone: Comment on above: PATIENT WAS FASTINGP ERFORMED BY: JC [facility] Nqsnts7366 [address] [facility] [place] [id number] WBC Auto #/vol (Bld) 7.5 {x10E3/uL} Normal 3.4-10.8 [facility] Work Phone: LIPID PANEL ([id number])Ordered B y: Flower Cutter on 01-20-2017 Cholesterol in HDL mass conc 47 mg/dL Normal [facility] Work Phone: Comment on above: PATIENT WAS FASTINGP ERFORMED BY: JC [facility] Ijoody3493 [address] RoadDublin [place] [id number] Cholesterol in LDL mass conc 107 mg/dL Abnormal 0-99 [facility] Work Phone: Comment on above: PATIENT WAS FASTINGP ERFORMED BY: CB [facility] Naebqi3778 [address] RoadDublin [place] [id number] Cholesterol in LDL/Cholesterol in HDL mass ratio 2.3 {ratio_units} Normal 0.0-3.2 [facility] Work Phone: Comment on above: LDL/HDL Ratio Men Wo men 1/2 Avg.Risk 1.0 1.5 Avg.Risk 3.6 3.2 2X Avg.Risk 6.2 5.0 3X Avg.Risk 8.0 6.1 PATIENT WAS FASTINGP ERFORMED BY: JC [facility] Rgkpct4791 [address] RoadDublin [place] [id number] Cholesterol in VLDL mass conc 19 mg/dL Normal 5-40 [facility] Work Phone: Comment on above: PATIENT WAS FASTINGP ERFORMED BY: JC [facility] Lprcda8720 [address] RoadDublin [place] [id number] Cholesterol mass conc 173 mg/dL Normal 100-199 [facility] prehensive Internal Medicine Work Phone: Comment on above: PATIENT WAS FASTINGP ERFORMED BY: CB [facility] Nuyvcz6941 [address] RoadDublin [place] [id number] Triglyceride mass conc 96 mg/dL Normal 0-149 [facility] Work Phone: Comment on above: PATIENT WAS FASTINGP ERFORMED BY: CB [facility] Cxxtch4473 [address] RoadDublin [place] [id number] METABOLIC PANEL, COMPREHENSI VE ([id number])Ordered By: Flower Cutter on 01-20-2017 Albumin mass conc 4.4 g/dL Normal 3.5-4.8 [facility] Internal Medicine Work Phone: Comment on above: PATIENT WAS FASTINGP ERFORMED BY: JC [facility] Oefnqv8734 [address] RoadDublin [place] [id number] Albumin/Globulin mass ratio 1.4 {ratio} Normal 1.2-2.2 [facility] Internal Medicine Work Phone: Comment on above: PATIENT WAS FASTINGP ERFORMED BY: [facility] Qimfvu3846 [address] RoadDublin [place] [id number] ALP [Catalytic activity/Vol] 98 U/L Normal 39-117 [facility]; [facility] Internal Medicine Work Phone: Comment on above: PATIENT WAS FASTINGP ERFORMED BY: JC LabComag Yrzmbt3728 [address] RoadDublin [place] [id number] ALP enzyme act/vol 98 [iU]/L Normal 39-117 [facility] Internal Medicine Work Phone: Comment on above: PATIENT WAS FASTINGP ERFORMED BY: [facility] Cptqkr2832 [address] RoadDublin [place] [id number] ALT [Catalytic activity/Vol] 14 U/L Normal 0-32 [facility]; [facility] Internal Medicine Work Phone: Comment on above: PATIENT WAS FASTINGP ERFORMED BY: [facility] Ubguml3893 [address] RoadDublin [place] [id number] ALT enzyme act/vol 14 [iU]/L Normal 0-32 [facility] Internal Medicine Work Phone: Comment on above: PATIENT WAS FASTINGP ERFORMED BY: [facility] Ouvomh8542 [address] RoadDublin [place] [id number] AST [Catalytic activity/Vol] 12 U/L Normal 0-40 [facility]; [facility] Internal Medicine Work Phone: Comment on above: PATIENT WAS FASTINGP ERFORMED BY: [facility] Kssdsr4243 [address] RoadDublin [place] [id number] AST enzyme act/vol 12 [iU]/L Normal 0-40 [facility] Internal Medicine Work Phone: Comment on above: PATIENT WAS FASTINGP ERFORMED BY: JC [facility] Kunyxz1528 [address] RoadDublin [place] [id number] Bilirubin mass conc 0.9 mg/dL Normal 0.0-1.2 Compr ensive Internal Medicine Work Phone: Comment on above: PATIENT WAS FASTINGP ERFORMED BY: CB [facility] Cdhaqt2035 [address] RoadDublin [place] [id number] Calcium mass conc 9.8 mg/dL Normal 8.7-10.3 Compreh ensive Internal Medicine Work Phone: Comment on above: PATIENT WAS FASTINGP ERFORMED BY: CB [facility] Vziimk0402 [address] RoadDublin [place] [id number] Chloride molar conc 99 mmol/L Normal 96-106 Com[facility] Internal Medicine Work Phone: Comment on above: PATIENT WAS FASTINGP ERFORMED BY: JC [facility] Mfdcak0631 [address] RoadDuin [place] [id number] CO2 molar conc 27 mmol/L Normal 18-29 Comprehens sue Internal Medicine Work Phone: Comment on above: PATIENT WAS FASTINGP ERFORMED BY: JC [facility] Ttirmf3828 [address] Roadblin [place] [id number] Creatinine mass conc 0.74 mg/dL Normal 0.57-1.00 Comp [facility] Internal Medicine Work Phone: Comment on above: PATIENT WAS FASTINGP ERFORMED BY: CB [facility] Courqb1490 [address] RoadWilson Medical Centerin [place] [id number] GFR/1.73 sq M predicted among blacks CKD-EPI vol rate/area (S/P/Bld) 92 mL/min/1.73 Normal Comprehensiv e Internal Medicine Work Phone: Comment on above: PATIENT WAS FASTINGP ERFORMED BY: CB [facility] Juipou1556 [address] RoadDublin [place] [id number] GFR/1.73 sq M predicted among non-blacks CKD-EPI vol rate/area (S/P/Bld) 80 mL/min/1.73 Normal [facility] Work Phone: Comment on above: PATIENT WAS FASTINGP ERFORMED BY: CB [facility] Dbedyl3282 [address] RoadDublin [place] [id number] Globulin (S) [Mass/Vol] 3.1 g/dL Normal 1.5-4.5 [facility] Work Phone: Comment on above: PATIENT WAS FASTINGP ERFORMED BY: CB [facility] Wqwsnh9899 [address] RoadDublin [place] [id number] Globulin Calculated mass conc (S) 3.1 g/dL Normal 1.5-4.5 [facility] Work Phone: Glucose mass conc 113 mg/dL Abnormal 65-99 Compreh ensive Internal Medicine Work Phone: Comment on above: PATIENT WAS FASTINGP ERFORMED BY: CB [facility] Rrbxgp2562 [address] RoadDublin [place] [id number] Potassium molar conc 5.0 mmol/L Normal 3.5-5.2 Comp rehensive Internal Medicine Work Phone: Comment on above: PATIENT WAS FASTINGP ERFORMED BY: [facility] Qlrwbn2429 [address] RoadDublin [place] [id number] Protein mass conc 7.5 g/dL Normal 6.0-8.5 Compreh ensive Internal Medicine Work Phone: Comment on above: PATIENT WAS FASTINGP ERFORMED BY: [facility] Zgistr0654 [address] RoadDublin [place] [id number] Sodium molar conc 141 mmol/L Normal 134-144 Compreh ensive Internal Medicine Work Phone: Comment on above: PATIENT WAS FASTINGP ERFORMED BY: CB [facility] Wsvlzt4936 [address] RoadDublin [place] [id number] Urea nitrogen mass conc 20 mg/dL Normal 8-27 [facility] Work Phone: Comment on above: PATIENT WAS FASTINGP ERFORMED BY: CB [facility] Wtfbbo0235 [address] RoadDublin [place] [id number] Urea nitrogen/Creatinine mass ratio 27 mg/mg Normal 12-28 [facility] Work Phone: Comment on above: PATIENT WAS FASTINGP ERFORMED BY: HobzyPresbyterian HospitalQsplyw5162 [facility] [id number] MICROALBUMINOrdered By: Syst em Graphic Coordinator on 01-20-2017 Albumin DL <= 20 mg/L mass conc (U) 9.3 ug/mL Normal [facility] Work Phone: Comment on above: PATIENT WAS FASTINGP ERFORMED BY: frentingCorewell Health Butterworth Hospital6370 [facility] [id number] Albumin/Creatinine mass ratio (U) 6.0 {mg/g_creat} Normal 0.0-30.0 [facility] Work Phone: Comment on above: PATIENT WAS FASTINGP ERFORMED BY: frentingSaint Francis Hospital & Health ServicesXkbyhs8070 [facility] [id number] Creatinine mass conc (U) 154.3 mg/dL Normal [facility] Work Phone: Comment on above: PATIENT WAS FASTINGP ERFORMED BY: frentingCorewell Health Butterworth Hospital6370 [facility] [id number] Microscopic ExaminationOrder ed By: Flower Cutter on 01-20-2017 Bacteria LM.HPF #/area (Urine sed) None seen Normal [facility] Work Phone: Epithelial cells LM.HPF #/area (Urine sed) 0-10 Normal 0 - 10 [facility] Work Phone: Mucus LM Ql (Urine sed) Present Normal [facility] Work Phone: RBC LM.HPF #/area (Urine sed) 0-2 Normal 0 - 2 [facility] Work Phone: WBC LM.HPF #/area (Urine sed) 0-5 Normal 0 - 5 [facility] Work Phone: URINALYSIS, W/ MICRO ([id number]) Ordered By: Flower Cutter on 01-20-2017 Appearance Nom (U) Clear Normal Compre hensive Internal Medicine Work Phone: Comment on above: PATIENT WAS FASTINGP ERFORMED BY: frentingCorewell Health Butterworth Hospital6370 [facility] [id number] Bilirubin Ql (U) Negative Normal Comprehe nsive Internal Medicine Work Phone: Comment on above: PATIENT WAS FASTINGP ERFORMED BY: JC LabTamir BartlettUyncft2174 [address] RoadDublin [place] [id number] Bilirubin Ql (U) Negative Normal Comprehe nsive Internal Medicine; [facility] Work Phone: Comment on above: PATIENT WAS FASTINGP ERFORMED BY: JC LabTamir BartlettGndrvp1647 [address] RoadDublin [place] [id number] Color Nom (U) Yellow Normal Comprehensi ve Internal Medicine Work Phone: Comment on above: PATIENT WAS FASTINGP ERFORMED BY: JC LabTamir BartlettLcmvqd3846 [address] RoadDublin [place] [id number] Glucose Ql (U) Negative Normal Comprehens sue Internal Medicine Work Phone: Comment on above: PATIENT WAS FASTINGP ERFORMED BY: JC Bartlettlin6370 [address]Dublin [place] [id number] Glucose Ql (U) Negative Normal Comprehens sue Internal Medicine; [facility] Work Phone: Comment on above: PATIENT WAS FASTINGP ERFORMED BY: JC LabTamir BartlettPmqdlf8069 [address] RoadDublin [place] [id number] Hemoglobin Ql (U) Negative Normal Compreh ensive Internal Medicine Work Phone: Comment on above: PATIENT WAS FASTINGP ERFORMED BY: JC Bartlettlin6370 [address]Dublin [place] [id number] Hemoglobin Ql (U) Negative Normal Compreh ensive Internal Medicine; [facility] Work Phone: Comment on above: PATIENT WAS FASTINGP ERFORMED BY: JC [facility] Lfztfd3019 [address] RoadDublin [place] [id number] Hemoglobin Test strip Ql (U) Negative Normal [facility] Work Phone: Ketones Ql (U) Negative Normal Comprehens sue Internal Medicine Work Phone: Comment on above: PATIENT WAS FASTINGP ERFORMED BY: JC LabTamir BartlettErxxnd0267 [address] RoadDublin [place] [id number] Ketones Ql (U) Negative Normal Comprehens sue Internal Medicine; [facility] Work Phone: Comment on above: PATIENT WAS FASTINGP ERFORMED BY: JC Parkinson6370 [address] [place] [id number] Leukocyte esterase Test strip Ql (U) Trace Abnormal [facility] Work Phone: Comment on above: PATIENT WAS FASTINGP ERFORMED BY: JC Parkinson6370 [address] [place] [id number] Microscopic observation LM Nom (Urine sed) See below: Normal [facility] Work Phone: Comment on above: Microscopic was cintia cated and was performed. PATIENT WAS FASTINGP ERFORMED BY: JC Parkinson6370 [address] [place] [id number] Nitrite Ql (U) Negative Normal Comprehens sue Internal Medicine Work Phone: Comment on above: PATIENT WAS FASTINGP ERFORMED BY: JC Parkinson6370 [address] [place] [id number] Nitrite Ql (U) Negative Normal Comprehens sue Internal Medicine; [facility] Work Phone: Comment on above: PATIENT WAS FASTINGP ERFORMED BY: JC Parkinson6370 [address] [place] [id number] Nitrite Test strip Ql (U) Negative Normal [facility] Work Phone: pH (U) 7.0 [pH] Normal 5.0-7.5 [facility] Work Phone: Comment on above: PATIENT WAS FASTINGP ERFORMED BY: CJ Parkinson[address]Dublin [place] [id number] pH Test strip (U) 7.0 [pH] Normal 5.0-7.5 Compreh ensive [facility] Work Phone: Protein Ql (U) Negative Normal Comprehens sue [facility] Work Phone: Comment on above: PATIENT WAS FASTINGP ERFORMED BY: JC Bartlettlin[address]Dublin [place] [id number] Protein Ql (U) Negative Normal Comprehens [facility]; [facility] Work Phone: Comment on above: PATIENT WAS FASTINGP ERFORMED BY: JC LabComag BartlettTmsgzn8858 [address] RoadDublin [place] [id number] Protein Test strip Ql (U) Negative Normal [facility] Work Phone: Specific gravity Relative Density (U) 1.021 1 Normal 1.005-1.03 0 [facility] Work Phone: Comment on above: PATIENT WAS FASTINGP ERFORMED BY: JC [facility] Qyqtwe9455 [address] RoadDublin [place] [id number] Urobilinogen (U) [Mass/Vol] 0.2 mg/dL Normal 0.2-1.0 [facility]; [facility] Work Phone: Comment on above: PATIENT WAS FASTINGP ERFORMED BY: JC [facility] Uasjcq3935 [address] RoadDublin [place] [id number] Urobilinogen Test strip mass conc (U) 0.2 mg/dL Normal 0.2-1.0 Comprehensiv e [facility] Medicine Work Phone: Comment on above: PATIENT WAS FASTINGP ERFORMED BY: JC [facility] Tvfdxx1535 [address] RoadDublin [place] [id number] CBC & PLATELETS (AUTO) (8502 [id number])Ordered By: Flower Cutter on 07-11-2014 Erythrocyte distribution width (RBC) [Ratio] 14.3 % Normal 12.3-15.4 [facility] Work Phone: Comment on above: PATIENT NOT FASTINGP ERFORMED BY: JC [facility] Wcqlhm2619 [address]Dublin [place] [id number] Erythrocyte distribution width Auto Ratio (RBC) 14.3 % Normal 12.3-15.4 [facility] Work Phone: Hematocrit (Bld) [Volume fraction] 39.1 % Normal 34.0-46.6 [facility] Work Phone: Comment on above: PATIENT NOT FASTINGP ERFORMED BY: JC [facility] Ijxchg9657 [address] RoadDublin [place] [id number] Hematocrit Auto Volume Fraction (Bld) 39.1 % Normal 34.0-46.6 [facility] Medicine Work Phone: Hemoglobin mass conc (Bld) 12.7 g/dL Normal 11.1-15.9 [facility] Internal Medicine Work Phone: Comment on above: PATIENT NOT FASTINGP ERFORMED BY: CB [facility] Xowgta[address] Light[employer] RetailWilson Medical Centerin [place] [id number] MCH (RBC) [Entitic mass] 28.3 pg Normal 26.6-33.0 [facility] Internal Medicine Work Phone: Comment on above: PATIENT NOT FASTINGP ERFORMED BY: CB [facility] Lzhgpw[address] [employer] RetailScionHealth [id number] MCH Auto Entitic mass (RBC) 28.3 pg Normal 26.6-33.0 [facility] Internal Medicine Work Phone: MCHC (RBC) [Mass/Vol] 32.5 g/dL Normal 31.5-35.7 [facility] Internal Medicine Work Phone: Comment on above: PATIENT NOT FASTINGP ERFORMED BY: [facility] Bpmhtl[address] [employer] RetailScionHealth [id number] MCHC Auto mass conc (RBC) 32.5 g/dL Normal 31.5-35.7 [facility] Internal Medicine Work Phone: MCV (RBC) [Entitic vol] 87 fL Normal 79-97 [facility] Internal Medicine Work Phone: Comment on above: PATIENT NOT FASTINGP ERFORMED BY: [facility] Bnuizf[address] [employer]Sc[facility] [id number] MCV Auto Entitic volume (RBC) 87 fL Normal 79-97 [facility] Internal Medicine Work Phone: Platelets (Bld) [#/Vol] 212 {x10E3/uL} Normal 150-379 [facility] Work Phone: Comment on above: PATIENT NOT FASTINGP ERFORMED BY: CB [facility] Gjvzys[address] Light[employer] RetailWilson Medical Centerin [place] [id number] Platelets (Bld) [#/Vol] 212 10*3/uL Normal 150-379 [facility]; [facility] Work Phone: Comment on above: PATIENT NOT FASTINGP ERFORMED BY: JC Parkinson6370 [facility] [id number] Platelets Auto #/vol (Bld) 212 {x10E3/uL} Normal 150-379 [facility] Work Phone: RBC (Bld) [#/Vol] 4.48 {x10E6/uL} Normal 3.77-5.28 [facility] Internal Medicine Work Phone: Comment on above: PATIENT NOT FASTINGP ERFORMED BY: JC LabTamir Parkinson6370 [facility] [id number] RBC (Bld) [#/Vol] 4.48 10*6/uL Normal 3.77-5.28 [facility] Internal Medicine; [facility] Work Phone: Comment on above: PATIENT NOT FASTINGP ERFORMED BY: JC Samina Bartlettlin6370 [facility] [id number] RBC Auto #/vol (Bld) 4.48 {x10E6/uL} Normal 3.77-5.28 [facility] Work Phone: WBC (Bld) [#/Vol] 8.0 {x10E3/uL} Normal 3.4-10.8 [facility] Internal Medicine Work Phone: Comment on above: PATIENT NOT FASTINGP ERFORMED BY: JC LabElena Uvjigx8250 [facility] [id number] WBC (Bld) [#/Vol] 8.0 10*3/uL Normal 3.4-10.8 [facility] Internal Medicine; [facility] Work Phone: Comment on above: PATIENT NOT FASTINGP ERFORMED BY: JC [facility] Ljlccy7994 [facility] [id number] WBC Auto #/vol (Bld) 8.0 {x10E3/uL} Normal 3.4-10.8 [facility] Work Phone: Metabolic Panel, Comprehensi ve ([id number])Ordered By: Flower Cutter on 07-11-2014 Albumin mass conc 4.3 g/dL Normal 3.5-4.8 Compreh [facility] Internal Medicine Work Phone: Comment on above: PATIENT NOT FASTINGP ERFORMED BY: CB [facility] Zuyxtw5190 [address] RoadDublin [place] [id number] Information: [id number] Albumin/Globulin mass ratio 1.5 {ratio} Normal 1.1-2.5 [facility] Work Phone: Comment on above: PATIENT NOT FASTINGP ERFORMED BY: CB [facility] Wyvmdp4067 [address] RoadDublin [place] [id number] Information: [id number] ALP [Catalytic activity/Vol] 99 U/L Normal 39-117 [facility]; [facility] Internal Medicine Work Phone: Comment on above: PATIENT NOT FASTINGP ERFORMED BY: CB [facility] Tvwjpk1848 [address] RoadDublin [place] [id number] Information: [id number] ALP enzyme act/vol 99 [iU]/L Normal 39-117 [facility] Internal Medicine Work Phone: Comment on above: PATIENT NOT FASTINGP ERFORMED BY: CB [facility] Eheswh7343 [address] RoadDublin [place] [id number] Information: [id number] ALT [Catalytic activity/Vol] 17 U/L Normal 0-32 [facility]; [facility] Internal Medicine Work Phone: Comment on above: PATIENT NOT FASTINGP ERFORMED BY: CB [facility] Iznqur0070 [address] RoadDublin [place] [id number] Information: [id number] ALT enzyme act/vol 17 [iU]/L Normal 0-32 [facility] Internal Medicine Work Phone: Comment on above: PATIENT NOT FASTINGP ERFORMED BY: CB [facility] Zzjkal8637 [address] RoadDublin [place] [id number] Information: [id number] AST [Catalytic activity/Vol] 15 U/L Normal 0-40 [facility]; [facility] Work Phone: Comment on above: PATIENT NOT FASTINGP ERFORMED BY: JC Parkinson[address] [facility] [place] [id number] Information: [id number] AST enzyme act/vol 15 [iU]/L Normal 0-40 Compre hensive Internal Medicine Work Phone: Comment on above: PATIENT NOT FASTINGP ERFORMED BY: JC [facility] Bxuhid[address] [facility] [id number] Information: [id number] Bilirubin mass conc 0.6 mg/dL Normal 0.0-1.2 Compr ehensive Internal Medicine Work Phone: Comment on above: PATIENT NOT FASTINGP ERFORMED BY: JC Gonzalez Yzvvye9567 [facility] [id number] Information: [id number] Calcium mass conc 10.1 mg/dL Normal 8.6-10.2 Compreh ensive [facility] Medicine Work Phone: Comment on above: PATIENT NOT FASTINGP ERFORMED BY: JC Parkinson[address] [facility] [id number] Information: [id number] Chloride molar conc 98 mmol/L Normal 97-108 Compr ehensive Internal Medicine Work Phone: Comment on above: PATIENT NOT FASTINGP ERFORMED BY: JC [facility] Vywxza[address] [facility] [id number] Information: [id number] CO2 molar conc 27 mmol/L Normal 18-29 Comprehens sue [facility] Work Phone: Comment on above: PATIENT NOT FASTINGP ERFORMED BY: JC LabComag Xkwcin[address] [facility] [id number] Information: [id number] Creatinine mass conc 0.74 mg/dL Normal 0.57-1.00 Comp rehensive Internal Medicine Work Phone: Comment on above: PATIENT NOT FASTINGP ERFORMED BY: JC [facility] Zhjsbs[address] [facility] [id number] Information: [id number] GFR/1.73 sq M predicted among blacks CKD-EPI vol rate/area (S/P/Bld) 94 mL/min/1.73 Normal Comprehensiv e Internal Medicine Work Phone: Comment on above: PATIENT NOT FASTINGP ERFORMED BY: CB [facility] Awryjh5559 [facility] [id number] Information: [id number] GFR/1.73 sq M predicted among non-blacks CKD-EPI vol rate/area (S/P/Bld) 82 mL/min/1.73 Normal [facility] Work Phone: Comment on above: PATIENT NOT FASTINGP ERFORMED BY: JC [facility] Fulctz0004 [facility] [id number] Information: [id number] Globulin (S) [Mass/Vol] 2.9 g/dL Normal 1.5-4.5 [facility] Work Phone: Comment on above: PATIENT NOT FASTINGP ERFORMED BY: JC [facility] Mdiscm9635 [facility] [id number] Information: [id number] Globulin Calculated mass conc (S) 2.9 g/dL Normal 1.5-4.5 [facility] Work Phone: Glucose mass conc 103 mg/dL Abnormal 65-99 Compreh ensive Internal Medicine Work Phone: Comment on above: PATIENT NOT FASTINGP ERFORMED BY: CB [facility] Pckzfq5968 [facility] [id number] Information: [id number] Potassium molar conc 5.2 mmol/L Normal 3.5-5.2 Comp rehensive Internal Medicine Work Phone: Comment on above: PATIENT NOT FASTINGP ERFORMED BY: CB [facility] Vduktq8043 [facility] [id number] Information: [id number] Protein mass conc 7.2 g/dL Normal 6.0-8.5 Compreh ensive Internal Medicine Work Phone: Comment on above: PATIENT NOT FASTINGP ERFORMED BY: JC Bartlettlin6370 [facility] [id number] Information: [id number] Sodium molar conc 140 mmol/L Normal 134-144 Compreh ensive Internal Medicine Work Phone: Comment on above: PATIENT NOT FASTINGP ERFORMED BY: JC [place] [id number] [facility] [id number] Information: [id number] Urea nitrogen mass conc 11 mg/dL Normal 8-27 [facility] Work Phone: Comment on above: PATIENT NOT FASTINGP ERFORMED BY: ObinnaMichelle V[place] [id number] [facility] [id number] Information: [id number] Urea nitrogen/Creatinine mass ratio 15 mg/mg Normal 11-26 [facility] Work Phone: Comment on above: PATIENT NOT FASTINGP ERFORMED BY: JC Gonzalez Tddbzv7481 [facility] [id number] Information: [id number] P-ANCA & C-ANCA (ANCA PROFIL E) 70142 x2 and 99658 p9Typkcwv By: Flower Cutter on 07-11-2014 Mitochondria M2 IgG Qn (S) <20.0 Normal 0.0-20.0 [facility] Work Phone: Comment on above: Negative 0.0 - 20.0 Equivocal 20.1 - 24.9 Positive >24.9 . Mitochondrial (M2) Antibodies are found in 90-96% of patients with primary biliary cirrhosis. PATIENT NOT FASTINGP ERFORMED BY: JC YeboahCorewell Health [facility] Hospital6370 [facility] [id number] Sedimentation Rate-ESR (8565 2)Ordered By: Flower Cutter on 07-11-2014 ESR Velocity (Bld) 9 mm/h Normal 0-40 Compre hensive Internal Medicine Work Phone: Comment on above: PATIENT NOT FASTINGP ERFORMED BY: LabCoVirtua [facility] CenterKiqdsx6245 [facility] [id number] Vital Signs Date Time Vital Sign Value Performing Clinician Facility 02-14-2023 12:02-04[address] Pressure Cuff Size DR NETTE POLANCO MD [facility] 02-14-2023 12:02-[address] NETTE POLANCO MD [facility] 02-14-2023 12:02-[address] NETTE POLANCO MD [facility] 02-14-2023 12:02-0400 Body temperature 98.24 [degF] DR NETTE POLANCO MD [facility] 02-14-2023 12:02-0400 Diastolic Blood Pressure Non-Invasive [address] NETTE POLANCO MD [facility] 02-14-2023 12:02-0400 Systolic Blood Pressure Non-Invasive [address] NETTE POLANCO MD [facility] 02-13-2023 21:04-04[address] Pressure Cuff Size DR GURJIT COSME DO [facility] 02-13-2023 21:04-[address] GURJIT COSME DO [facility] 02-13-2023 21:04-[address] GURJIT COSME DO [facility] 02-13-2023 21:04-0400 Body height 157.[address] GURJIT COSME DO [facility] 02-13-2023 21:04-0400 Body temperature 98.24 [degF] DR GURJIT COSME DO [facility] 02-13-2023 21:04-0400 Body weight [address] CAGLE AUSTINROSALINDA DO [facility] 02-13-2023 21:04-0400 Diastolic Blood Pressure Non-Invasive [address] GURJIT COSME DO [facility] 02-13-2023 21:04-0400 Heart rate 84 /min DR GURJIT COSME DO [facility] 02-13-2023 21:04-0400 Reason For Taking VItal Signs DR GURJIT COSME DO [facility] 02-13-2023 21:04-0400 Respiratory rate 20 /min DR GURJIT COSME DO [facility] 02-13-2023 21:04-0400 Systolic Blood Pressure Non-Invasive [address] CAGLE AUSTINROSALINDA DO [facility] 11-17-2022 11:09-0400 Body height 156.84 cm Ivon Ramos LPN [facility]; [facility] Work Phone: 11-17-2022 11:09-0400 Body mass index (BMI) [Ratio] 30.68 kg/m2 Ivon Ramos LPN [facility]; [facility] Work Phone: 11-17-2022 11:09-0400 Body surface area Derived from formula 1.76 m2 Ivon Ramos LPN [facility]; [facility] Work Phone: 11-17-2022 11:09-0400 Body temperature 97.9 [degF] Ivon Ramos LPN [facility]; [facility] Work Phone: Comment on above: Method: Temporal 11-17-2022 11:09-0400 Body weight 75.47 kg Ivon Slarb [employer] [facility]; [facility] Work Phone: 11-17-2022 11:09-0400 Diastolic blood pressure 80 mm[Hg] Ivon Slarb [employer] [facility]; [facility] Work Phone: Comment on above: Patient Position: Sitting; Cuff Location : Left Arm; Cuff Size: Standard 11-17-2022 11:09-0400 Heart rate 76 /min Ivon Slarb [employer] [facility]; [facility] Work Phone: Comment on above: Pattern: Regular 11-17-2022 11:09-0400 Respiratory rate 16 /min Ivon Slarb [employer] [facility]; [facility] Work Phone: Comment on above: Pattern: Unlabored 11-17-2022 11:09-0400 SaO2% (BldA) [Mass fraction] 97 % Ivon Slarb [employer] [facility]; [facility] Work Phone: Comment on above: Room air 11-17-2022 11:09-0400 Systolic blood pressure 142 mm[Hg] Ivon Slarb [employer] [facility]; [facility] Work Phone: Comment on above: Patient Position: Sitting; Cuff Location : Left Arm; Cuff Size: Standard 10-22-2022 09:54-0400 Body height 156.84 cm [facility]; [facility] Work Phone: 10-22-2022 09:54-0400 Body mass index (BMI) [Ratio] 30.68 kg/m2 [facility]; [facility] Work Phone: 10-22-2022 09:54-0400 Body surface area Derived from formula 1.76 m2 [facility]; [facility] Work Phone: 10-22-2022 09:54-0400 Body temperature 97.1 [degF] [facility] Comprehensiv e Internal Medicine; [facility] Work Phone: 04-12-2023 09:54-0400 Body weight 75.47 kg Joaquín Smith [facility]; [facility] Work Phone: 10-22-2022 09:54-0400 Diastolic blood pressure 80 mm[Hg] Joaquín Smith [facility]; [facility] Work Phone: Comment on above: Patient Position: Sitting; Cuff Location : Left Arm; Cuff Size: Standard 10-22-2022 09:54-0400 Heart rate 86 /min [facility]; [facility] Work Phone: Comment on above: Pattern: Regular 10-22-2022 09:54-0400 Respiratory rate 16 /min [facility] Comprehensiv e Internal Medicine; [facility] Work Phone: Comment on above: Pattern: Unlabored 10-22-2022 09:54-0400 SaO2% (BldA) [Mass fraction] 99 % [facility]St[facility]; [facility] Work Phone: Comment on above: Room air 10-22-2022 09:54-0400 Systolic blood pressure 130 mm[Hg] [facility]St[facility]; [facility] Work Phone: Comment on above: Patient Position: Sitting; Cuff Location : Left Arm; Cuff Size: Standard 10-07-2021 16:48-0400 Body temperature 98.42 [degF] FARAZ NICOLE MD [facility] 10-07-2021 16:48-0400 Diastolic blood pressure 91 mm[Hg] FARAZ NICOLE MD [facility] 10-07-2021 16:48-0400 Heart rate 87 /min FARAZ NICOLE MD [facility] 10-07-2021 16:48-0400 Mean blood pressure 123 mm[Hg] FARAZ NICOLE MD [facility] 10-07-2021 16:48-0400 Respiratory rate 16 /min FARAZ NICOLE MD [facility] 10-07-2021 16:48-0400 Systolic blood pressure 187 mm[Hg] FARAZ NICOLE MD [facility] 05-27-2021 11:52-0500 Body height 156.84 cm Megha Hill MA [facility]; [facility] Work Phone: Comment on above: pt reported 05-27-2021 11:52-0500 Body mass index (BMI) [Ratio] 30.42 kg/m2 Megha Hill MA [facility]; [facility] Work Phone: Comment on above: pt reported 05-27-2021 11:52-0500 Body surface area Derived from formula 1.76 m2 Megha Hill MA [facility]; [facility] Work Phone: Comment on above: pt reported 05-27-2021 11:52-0500 Body weight 74.84 kg Megha Hill MA [facility]; [facility] Work Phone: Comment on above: pt reported 05-08-2021 09:17-0400 Body height 156.84 cm Ginna Camp LPN [facility]; [facility] Work Phone: Comment on above: Pt states: I get white coat syndrome 05-08-2021 09:17-0400 Body mass index (BMI) [Ratio] 30.42 kg/m2 Ginna Camp LPN [facility]; [facility] Work Phone: Comment on above: Pt states: I get white coat syndrome 05-08-2021 09:17-0400 Body surface area Derived from formula 1.76 m2 Ginna Camp LPN [facility]; [facility] Work Phone: Comment on above: Pt states: I get white coat syndrome 05-08-2021 09:17-0400 Body temperature 97.8 [degF] Ginna Camp LPN [facility]; [facility] Work Phone: Comment on above: Method: Temporal Pt states: I get whi te coat syndrome 05-08-2021 09:17-0400 Body weight 74.84 kg Ginna Camp LPN [facility]; [facility] Work Phone: Comment on above: Pt states: I get white coat syndrome 05-08-2021 09:17-0400 Diastolic blood pressure 94 mm[Hg] Ginna Camp LPN [facility]; [facility] Work Phone: Comment on above: Patient Position: Sitting; Cuff Location : Left Arm; Cuff Size: Standard Pt states: I get whi te coat syndrome 05-08-2021 09:17-0400 Heart rate 85 /min Ginna Camp LPN [facility]; [facility] Work Phone: Comment on above: Pattern: Regular Pt states: I get whi te coat syndrome 05-08-2021 09:17-0400 Respiratory rate 16 /min Ginna Camp LPN [facility]; [facility] Work Phone: Comment on above: Pattern: Unlabored Pt states: I get whi te coat syndrome 05-08-2021 09:17-0400 SaO2% (BldA) [Mass fraction] 98 % Ginna Camp LPN [facility]; [facility] Work Phone: Comment on above: Room air Pt states: I get whi te coat syndrome 05-08-2021 09:17-0400 Systolic blood pressure 180 mm[Hg] Ginna Camp LPN [facility]; [facility] Work Phone: Comment on above: Patient Position: Sitting; Cuff Location : Left Arm; Cuff Size: Standard Pt states: I get whi te coat syndrome 05-16-2020 09:48-0500 BMI (Body Mass Index) 30.79 kg/m2 Danika King LPN [facility] Work Phone: 05-16-2020 09:48-0500 BMI (Body Mass Index) 31.71 kg/m2 Miranda Lama [facility] Internal Medicine Work Phone: 05-16-2020 09:48-0500 Body Temperature 97 [degF] [facility] Work Phone: Comment on above: Method: Thermal Scan 05-16-2020 09:48-0500 Body weight 75.75 kg Danika King [facility] Internal Medicine Work Phone: 05-16-2020 09:48-0500 Body weight 78.02 kg Miranda Lama [facility] Internal Medicine Work Phone: 05-16-2020 09:48-0500 BP Diastolic 74 mm[Hg] Danika King [facility] Internal Medicine Work Phone: Comment on above: Patient Position: Sitting; Cuff Location : Left Arm; Cuff Size: Standard 05-16-2020 09:48-0500 BP Systolic 126 mm[Hg] Danika King [facility] Internal Medicine Work Phone: Comment on above: Patient Position: Sitting; Cuff Location : Left Arm; Cuff Size: Standard 05-16-2020 09:48-0500 BSA (Body Surface Area) 1.77 m2 Danika King [facility] Internal Medicine Work Phone: 05-16-2020 09:48-0500 BSA (Body Surface Area) 1.79 m2 Miranda Lama [facility] Internal Medicine Work Phone: 05-16-2020 09:48-0500 Height 156.84 cm Danika King [facility] Internal Medicine Work Phone: 05-16-2020 09:48-0500 Pulse (Heart Rate) 102 /min Danika King [facility] Comprehensiv e Internal Medicine Work Phone: Comment on above: Pattern: Regular 05-16-2020 09:48-0500 Pulse Oximetry 94 % Miranda Lama [facility] Internal Medicine Work Phone: Comment on above: Room air 05-16-2020 09:48-0500 Respiratory Rate 16 /min Danika King [facility] Work Phone: Comment on above: Pattern: Unlabored 05-16-2020 09:48-0500 SaO2% (BldA) [Mass fraction] 94 % [facility]; [facility] Work Phone: Comment on above: Room air 12-08-2019 09:11-0400 BMI (Body Mass Index) 31.71 kg/m2 Miranda Kelby DO Work Phone: [facility] Internal Medicine Work Phone: Comment on above: Vital signs obtained per pt d/t call or virtual visit 12-08-2019 09:11-0400 Body Temperature 97.1 [degF] Miranda Kelby DO Work Phone: [facility] Work Phone: Comment on above: Method: Oral Vital signs obtained per pt d/t call or virtual visit 12-08-2019 09:11-0400 Body weight 78.02 kg Miranda Kelby DO Work Phone: [facility] Work Phone: Comment on above: Vital signs obtained per pt d/t call or virtual visit 12-08-2019 09:11-0400 BP Diastolic 72 mm[Hg] Miranda Kelby DO Work Phone: [facility] Work Phone: Comment on above: Patient Position: Sitting Vital signs obtained per pt d/t call or virtual visit 12-08-2019 09:11-0400 BP Systolic 110 mm[Hg] Miranda Kelby DO Work Phone: [facility] Work Phone: Comment on above: Patient Position: Sitting Vital signs obtained per pt d/t call or virtual visit 12-08-2019 09:11-0400 BSA (Body Surface Area) 1.79 m2 Miranda Kelby DO Work Phone: [facility] Work Phone: Comment on above: Vital signs obtained per pt d/t call or virtual visit 12-08-2019 09:11-0400 Height 156.84 cm Miranda Kelby DO Work Phone: [facility] Work Phone: Comment on above: Vital signs obtained per pt d/t call or virtual visit 12-08-2019 09:11-0400 Pulse (Heart Rate) 79 /min Miranda Lama DO Work Phone: [facility] Work Phone: Comment on above: Pattern: Regular Vital signs obtained per pt d/t call or virtual visit 04-18-2019 10:21-0400 BMI (Body Mass Index) 31.71 kg/m2 Sandra Dyson RN [facility] Work Phone: 04-18-2019 10:21-0400 Body Temperature 97.5 [degF] Sandra Dyson RN [facility] Work Phone: Comment on above: Method: Temporal 04-18-2019 10:0400 Body weight 78.02 kg Sandra Dyson RN [facility] Work Phone: 04-18-2019 10:21-0400 BP Diastolic 74 mm[Hg] Sandra Dyson RN [facility] Work Phone: Comment on above: Patient Position: Sitting; Cuff Location : Left Arm; Cuff Size: Standard 04-18-2019 10:21-0400 BP Systolic 130 mm[Hg] Sandra Dyson RN [facility] Work Phone: Comment on above: Patient Position: Sitting; Cuff Location : Left Arm; Cuff Size: Standard 04-18-2019 10:21-0400 BSA (Body Surface Area) 1.79 m2 Sandra Dyson RN [facility] Work Phone: 04-18-2019 10:21-0400 Height 156.84 cm Sandra Dyson RN [facility] Work Phone: 04-18-2019 10:21-0400 Pulse (Heart Rate) 72 /min Sandra Dyson RN [facility] Work Phone: Comment on above: Pattern: Regular 04-18-2019 10:21-0400 Pulse Oximetry 98 % Miranda Lama [facility] Work Phone: Comment on above: Room air 04-18-2019 10:21-0400 Respiratory Rate 16 /min Sandra Dyson RN [facility] Work Phone: Comment on above: Pattern: Unlabored 04-18-2019 10:21-0400 SaO2% (BldA) [Mass fraction] 98 % Sandra Dyson RN [facility]; [facility] Work Phone: Comment on above: Room air 05-20-2018 09:42-0500 BMI (Body Mass Index) 30.68 kg/m2 Sharifa Preciado RN [facility] Work Phone: Comment on above: Dr. Doan and had a glauocma test done hearing [facility] 05-20-2018 09:42-0500 Body Temperature 97.6 [degF] Sharifa Preciado RN [facility] Work Phone: Comment on above: Method: Temporal Dr. Doan and had a glauocma test donehearing [facility] 05-20-2018 09:42-0500 Body weight 75.47 kg Sharifa Preciado RN [facility] Work Phone: Comment on above: Dr. Doan and had a glauocma test done hearing [facility] 05-20-2018 09:42-0500 BP Diastolic 80 mm[Hg] Sharifa Perciado RN [facility] Work Phone: Comment on above: Patient Position: Sitting; Cuff Location : Left Arm; Cuff Size: Large Dr. Doan and had a glauocma test donehearing [facility] 05-20-2018 09:42-0500 BP Systolic 138 mm[Hg] Sharifa Preciado RN [facility] Work Phone: Comment on above: Patient Position: Sitting; Cuff Location : Left Arm; Cuff Size: Large Dr. Doan and had a glauocma test donehearing [facility] 05-20-2018 09:42-0500 BSA (Body Surface Area) 1.76 m2 Sharifa Preciado RN [facility] Work Phone: Comment on above: Dr. Doan and had a glauocma test done hearing [facility] 05-20-2018 09:42-0500 Height 156.84 cm Sharifa Preciado RN [facility] Work Phone: Comment on above: Dr. Doan and had a glauocma test done hearing [facility] 05-20-2018 09:42-0500 Pulse (Heart Rate) 92 /min [facility] Internal Medicine Work Phone: Comment on above: Pattern: Regular Dr. Doan and had a glauocma test donehearing [facility] 05-20-2018 09:42-0500 Pulse Oximetry 95 % Miranda Lama [facility] Internal Medicine Work Phone: Comment on above: Room air Dr. Doan and had a glauocma test donehearing [facility] 05-20-2018 09:42-0500 Respiratory Rate 16 /min [facility] Work Phone: Comment on above: Pattern: Unlabored Dr. Doan and had a glauocma test donehearing [facility] 05-20-2018 09:42-0500 SaO2% (BldA) [Mass fraction] 95 % Sharifa Preciado RN [facility]; [facility] Work Phone: Comment on above: Room air Dr. Doan and had a glauocma test donehearing [facility] 05-20-2018 09:42-0500 Weight 75.47 kg Miranda Lama [facility] Internal Medicine Work Phone: 05-05-2018 13:30-0400 BMI (Body Mass Index) 30.68 kg/m2 Alannah Davila [facility] Work Phone: Comment on above: patient has white coat syndrome her bps at home today [id number] 110/70 and 105/63 05-05-2018 13:30-0400 Body Temperature 97.6 [degF] Alannah Davila [facility] Com[facility] Work Phone: Comment on above: Method: Temporal patient has white co at syndrome her bps at home today [id number] 110/70 and 105/63 05-05-2018 13:30-0400 Body weight 75.47 kg Alannah Davila [facility] Work Phone: Comment on above: patient has white coat syndrome her bps at home today [id number] 110/70 and 105/63 05-05-2018 13:30-0400 BP Diastolic 88 mm[Hg] Alannah Davila [facility] Work Phone: Comment on above: Patient Position: Sitting; Cuff Location : Left Arm; Cuff Size: Standard patient has white co at syndrome her bps at home today [id number] 110/70 and 105/63 05-05-2018 13:30-0400 BP Systolic 140 mm[Hg] Alannah Davila [facility] Work Phone: Comment on above: Patient Position: Sitting; Cuff Location : Left Arm; Cuff Size: Standard patient has white co at syndrome her bps at home today [id number] 110/70 and 105/63 05-05-2018 13:30-0400 BSA (Body Surface Area) 1.76 m2 Alannah Davila [facility] Internal Medicine Work Phone: Comment on above: patient has white coat syndrome her bps at home today [id number] 110/70 and 105/63 05-05-2018 13:30-0400 Height 156.84 cm Alannah Davila [facility] Work Phone: Comment on above: patient has white coat syndrome her bps at home today [id number] 110/70 and 105/63 05-05-2018 13:30-0400 Pulse (Heart Rate) 78 /min Alannah Davila [facility] Comprehens sue Internal Medicine Work Phone: Comment on above: Pattern: Regular patient has white co at syndrome her bps at home today [id number] 110/70 and 105/63 05-05-2018 13:30-0400 Pulse Oximetry 98 % Miranda Lama [facility] Internal Medicine Work Phone: Comment on above: Room air patient has white co at syndrome her bps at home today [id number] 110/70 and 105/63 05-05-2018 13:30-0400 Respiratory Rate 16 /min Alannah Davila [facility] Comprehensiv e Internal Medicine Work Phone: Comment on above: Pattern: Unlabored patient has white co at syndrome her bps at home today [id number] 110/70 and 105/63 05-05-2018 13:30-0400 SaO2% (BldA) [Mass fraction] 98 % Alannah Arceclarice RENE [facility]; [facility] Work Phone: Comment on above: Room air patient has white co at syndrome her bps at home today [id number] 110/70 and 105/63 05-05-2018 13:30-0400 Weight 75.47 kg Miranda Mcculloughon [facility] Work Phone: 06-15-2017 10:03-0500 BMI (Body Mass Index) 29.94 kg/m2 Sharifa Preciado RN [facility] Work Phone: 06-15-2017 10:03-0500 Body weight 73.65 kg Sharifa Preciado RN [facility] Work Phone: 06-15-2017 10:03-0500 BP Diastolic 90 mm[Hg] Sharifa Preciado RN [facility] Work Phone: Comment on above: Patient Position: Sitting; Cuff Location : Left Arm; Cuff Size: Large 06-15-2017 10:03-0500 BP Systolic 158 mm[Hg] Sharifa Preciado RN [facility] Work Phone: Comment on above: Patient Position: Sitting; Cuff Location : Left Arm; Cuff Size: Large 06-15-2017 10:03-0500 BSA (Body Surface Area) 1.74 m2 Sharifa Preciado RN [facility] Work Phone: 06-15-2017 10:03-0500 Height 156.84 cm Sharifa Preciado RN [facility] Work Phone: 06-15-2017 10:03-0500 Pulse (Heart Rate) 78 /min Sharifa Preciado RN [facility] Work Phone: Comment on above: Pattern: Regular 06-15-2017 10:03-0500 Pulse Oximetry 98 % Miranda Lama [facility] Work Phone: Comment on above: Room air 06-15-2017 10:03-0500 Respiratory Rate 18 /min Sharifa Preciado RN [facility] Work Phone: Comment on above: Pattern: Unlabored 06-15-2017 10:03-0500 SaO2% (BldA) [Mass fraction] 98 % Sharifa Preciado RN [facility]; [facility] Work Phone: Comment on above: Room air 06-15-2017 10:03-0500 Weight 73.65 kg Miranda Lama [facility] Work Phone: 02-09-2017 09:54-0400 BMI (Body Mass Index) 30.82 kg/m2 Sharifa Preciado RN [facility] Work Phone: 02-09-2017 09:54-0400 Body weight 75.81 kg Sharifa Preciado RN [facility] Work Phone: 02-09-2017 09:54-0400 BP Diastolic 88 mm[Hg] Sharifa Preciado RN [facility] Work Phone: Comment on above: Patient Position: Sitting; Cuff Location : Left Arm; Cuff Size: Large 02-09-2017 09:54-0400 BP Systolic 158 mm[Hg] Sharifa Preciado RN [facility] Work Phone: Comment on above: Patient Position: Sitting; Cuff Location : Left Arm; Cuff Size: Large 02-09-2017 09:54-0400 BSA (Body Surface Area) 1.77 m2 Sharifa Preciado RN [facility] Work Phone: 02-09-2017 09:54-0400 Height 156.84 cm Sharifa Preciado RN [facility] Work Phone: 02-09-2017 09:54-0400 Pulse (Heart Rate) 92 /min Sharifa Preciado RN [facility] Work Phone: Comment on above: Pattern: Regular 02-09-2017 09:54-0400 Pulse Oximetry 95 % Miranda Lama [facility] Work Phone: Comment on above: Room air 02-09-2017 09:54-0400 Respiratory Rate 18 /min Sharifa Preciado RN [facility] Work Phone: Comment on above: Pattern: Unlabored 02-09-2017 09:54-0400 SaO2% (BldA) [Mass fraction] 95 % Sharifa Preciado RN [facility]; [facility] Work Phone: Comment on above: Room air 02-09-2017 09:54-0400 Weight 75.81 kg Miranda Lama [facility] Work Phone: 08-18-2016 11:34-0500 BMI (Body Mass Index) 32.64 kg/m2 Sharifa Preciado RN [facility] Work Phone: 08-18-2016 11:34-0500 Body weight 80.29 kg Sharifa Preciado RN [facility] Work Phone: 08-18-2016 11:34-0500 BP Diastolic 88 mm[Hg] Sharifa Preciado RN [facility] Work Phone: Comment on above: Patient Position: Sitting; Cuff Location : Left Arm; Cuff Size: Large 08-18-2016 11:34-0500 BP Systolic 124 mm[Hg] Sharifa Preciado RN [facility] Work Phone: Comment on above: Patient Position: Sitting; Cuff Location : Left Arm; Cuff Size: Large 08-18-2016 11:34-0500 BSA (Body Surface Area) 1.81 m2 Sharifa Preciado RN [facility] Work Phone: 08-18-2016 11:34-0500 Height 156.84 cm Sharifa Preciado RN [facility] Work Phone: 08-18-2016 11:34-0500 Pulse (Heart Rate) 83 /min Sharifa Preciado RN [facility] Work Phone: Comment on above: Pattern: Regular 08-18-2016 11:34-0500 Pulse Oximetry 98 % Miranda Lama [facility] Work Phone: Comment on above: Room air 08-18-2016 11:34-0500 Respiratory Rate 18 /min Sharifa Preciado RN [facility] Work Phone: Comment on above: Pattern: Unlabored 08-18-2016 11:34-0500 SaO2% (BldA) [Mass fraction] 98 % Sharifa Preciado RN [facility]; [facility] Work Phone: Comment on above: Room air 08-18-2016 11:34-0500 Weight 80.29 kg Miranda Lama [facility] Work Phone: 07-23-2015 09:42-0500 Body Temperature 98.1 [degF] Sandra Dyson RN [facility] Work Phone: Comment on above: Method: Temporal 07-23-2015 09:42-0500 Body weight 79.38 kg Sandra Dyson RN [facility] Work Phone: 07-23-2015 09:42-0500 BP Diastolic 76 mm[Hg] Sandra Dyson RN [facility] Work Phone: Comment on above: Patient Position: Sitting; Cuff Location : Left Arm; Cuff Size: Standard 07-23-2015 09:42-0500 BP Systolic 128 mm[Hg] Sandra Dyson RN [facility] Work Phone: Comment on above: Patient Position: Sitting; Cuff Location : Left Arm; Cuff Size: Standard 07-23-2015 09:42-0500 Pulse (Heart Rate) 82 /min Sandra Dyson RN [facility] Work Phone: Comment on above: Pattern: Regular 07-23-2015 09:42-0500 Pulse Oximetry 97 % Miranda Lama [facility] Work Phone: Comment on above: Room air 07-23-2015 09:42-0500 Respiratory Rate 16 /min Sandra Dyson RN [facility] Work Phone: Comment on above: Pattern: Unlabored 07-23-2015 09:42-0500 SaO2% (BldA) [Mass fraction] 97 % Sandra Dyson RN [facility]; [facility] Work Phone: Comment on above: Room air 07-23-2015 09:42-0500 Weight 79.38 kg Miranda Lama [facility] Work Phone: 07-09-2015 08:55-0500 Body Temperature 97.8 [degF] Ivon Ramos LPN [facility] Work Phone: 07-09-2015 08:55-0500 Body weight 79.38 kg Ivon Slarb CELESTE [facility] Work Phone: 07-09-2015 08:55-0500 BP Diastolic 78 mm[Hg] Ivon Slarb [employer] [facility] Work Phone: Comment on above: Patient Position: Sitting; Cuff Location : Left Arm; Cuff Size: Standard 07-09-2015 08:55-0500 BP Systolic 154 mm[Hg] Ivon Slarb [employer] [facility] Work Phone: Comment on above: Patient Position: Sitting; Cuff Location : Left Arm; Cuff Size: Standard 07-09-2015 08:55-0500 Pulse (Heart Rate) 75 /min Ivon Slarb [employer] [facility] Work Phone: Comment on above: Pattern: Regular 07-09-2015 08:55-0500 Pulse Oximetry 95 % Miranda Lama [facility] Medicine Work Phone: Comment on above: Room air 07-09-2015 08:55-0500 Respiratory Rate 16 /min Ivon Slarb [employer] [facility] Work Phone: Comment on above: Pattern: Unlabored 07-09-2015 08:55-0500 SaO2% (BldA) [Mass fraction] 95 % Ivon Slarb [employer] [facility]; [facility] Work Phone: Comment on above: Room air 07-09-2015 08:55-0500 Weight 79.38 kg Miranda Lama [facility] Work Phone: 08-23-2014 09:00-0500 Body Temperature 97.3 [degF] Ivon Slarb [employer] [facility] Work Phone: 08-23-2014 09:00-0500 Body weight 78.73 kg Ivon Slarb [employer] [facility] Work Phone: 08-23-2014 09:00-0500 BP Diastolic 84 mm[Hg] Ivon Slarb [employer] [facility] Work Phone: Comment on above: Patient Position: Sitting; Cuff Location : Left Arm; Cuff Size: Standard 08-23-2014 09:00-0500 BP Systolic 142 mm[Hg] Ivon Slarb [employer] [facility] Work Phone: Comment on above: Patient Position: Sitting; Cuff Location : Left Arm; Cuff Size: Standard 08-23-2014 09:00-0500 Pulse (Heart Rate) 73 /min Ivon Juanarb [employer] [facility] Work Phone: Comment on above: Pattern: Regular 08-23-2014 09:00-0500 Pulse Oximetry 96 % Miranda Lama [facility] Work Phone: Comment on above: Room air 08-23-2014 09:00-0500 Respiratory Rate 16 /min Ivon Juanarb [employer] [facility] Work Phone: Comment on above: Pattern: Unlabored 08-23-2014 09:00-0500 SaO2% (BldA) [Mass fraction] 96 % Ivon Juanarb [employer] [facility]; [facility] Work Phone: Comment on above: Room air 08-23-2014 09:00-0500 Weight 78.73 kg Miranda Lama [facility] Work Phone: 07-19-2014 13:44-0500 Body Temperature 97.4 [degF] Ivon Ariasrb [employer] [facility] Work Phone: 07-19-2014 13:44-0500 Body weight 80.03 kg Ivon Ariasrb [employer] [facility] Work Phone: 07-19-2014 13:44-0500 BP Diastolic 82 mm[Hg] Ivon Slarb [employer] [facility] Work Phone: Comment on above: Patient Position: Sitting; Cuff Location : Left Arm; Cuff Size: Standard 07-19-2014 13:44-0500 BP Systolic 136 mm[Hg] Ivon Slarb [employer] [facility] Work Phone: Comment on above: Patient Position: Sitting; Cuff Location : Left Arm; Cuff Size: Standard 07-19-2014 13:44-0500 Pulse (Heart Rate) 81 /min Ivon Juanarb [employer] [facility] Work Phone: Comment on above: Pattern: Regular 07-19-2014 13:44-0500 Pulse Oximetry 98 % Miranda Lama [facility] Internal Medicine Work Phone: Comment on above: Room air 07-19-2014 13:44-0500 Respiratory Rate 14 /min Ivon Ramos LPN [facility] Work Phone: Comment on above: Pattern: Unlabored 07-19-2014 13:44-0500 SaO2% (BldA) [Mass fraction] 98 % Ivon Ramos LPN [facility]; [facility] Work Phone: Comment on above: Room air 07-19-2014 13:44-0500 Weight 80.03 kg Miranda Lama [facility] Work Phone: 07-11-2014 10:34-0500 BMI (Body Mass Index) 33.82 kg/m2 Taisha Mercedes LPN [facility] Work Phone: Comment on above: I have white coat 07-11-2014 10:34-0500 Body Temperature 97.8 [degF] Taisha Mercedes LPN [facility] Work Phone: Comment on above: Method: Oral I have white coat 07-11-2014 10:34-0500 Body weight 81.19 kg Taisha Mercedes LPN [facility] Medicine Work Phone: Comment on above: I have white coat 07-11-2014 10:34-0500 BP Diastolic 90 mm[Hg] Taisha Mercedes LPN [facility] Internal Medicine Work Phone: Comment on above: Patient Position: Sitting; Cuff Location : Left Arm; Cuff Size: Standard I have white coat 07-11-2014 10:34-0500 BP Systolic 172 mm[Hg] Taisha Mercedes LPN [facility] Internal Medicine Work Phone: Comment on above: Patient Position: Sitting; Cuff Location : Left Arm; Cuff Size: Standard I have white coat 07-11-2014 10:34-0500 BSA (Body Surface Area) 1.8 m2 Taisha Mercedes LPN [facility] Internal Medicine Work Phone: Comment on above: I have white coat 07-11-2014 10:34-0500 Height 154.94 cm Taisha Mercedes LPN [facility] Work Phone: Comment on above: I have white coat 07-11-2014 10:34-0500 Pulse (Heart Rate) 82 /min Taisha Daren ALONSO [facility] Work Phone: Comment on above: Pattern: Regular I have white coat 07-11-2014 10:34-0500 Pulse Oximetry 97 % Miranda Lama [facility] Work Phone: Comment on above: Room air I have white coat 07-11-2014 10:34-0500 Respiratory Rate 16 /min Taisha aDren ALONSO [facility] Work Phone: Comment on above: I have white coat 07-11-2014 10:34-0500 SaO2% (BldA) [Mass fraction] 97 % Taisha Mercedes LPN [facility]; [facility] Work Phone: Comment on above: Room air I have white coat 07-11-2014 10:34-0500 Weight 81.19 kg Miranda Lama [facility] Work Phone: Encounters Encounter Date Encounter Type Care Provider Facility Start: 01-09-2025 End: 01-09-[address] Miranda Lama DO Work Phone: -Laboratory Vijay Mosley [facility] Start: 01-09-2025 End: 01-09-2025 Patient encounter procedure Heather Will [employer]-C -Laboratory Vijay Mosley [facility] Start: 01-09-2025 End: 01-09-2025 ambulatory Miranda Lama Facility:[facility] Start: 02-14-2023 End: 02-14-2023 Emergency department patient visit DR NETTE POLANCO MD Facility:B Start: 02-14-2023 End: 02-14-2023 Emergency department patient visit DR NETTE POLANCO MD [facility] Start: 02-13-2023 End: 02-13-2023 Emergency department patient visit DR GURJIT COSME DO Facility:[facility] Start: 02-13-2023 End: 02-13-2023 Emergency department patient visit DR GURJIT COSME DO [facility] Start: 11-17-2022 End: 11-17-2022 Office outpatient visit 10 minutes Miranda Kelby DO Work Phone: [facility] Start: 11-12-2022 ambulatory Miranda Kelby DO Comp re[facility] Med Start: 10-22-2022 End: 10-22-2022 Patient encounter procedure Joaquín Smith CMA [facility]; [facility] Work Phone: Start: 10-22-2022 Review Miranda Mccullougho n DO Work Phone: [facility] Start: 10-07-2021 End: 10-07-2021 Emergency department patient visit FARAZ NICOLE MD [facility] Start: 05-27-2021 End: 05-27-2021 Office outpatient visit 10 minutes Miranda Kelby DO Work Phone: [facility] Start: 05-08-2021 End: 05-08-2021 Office outpatient visit 25 minutes Miranda Kelby DO Work Phone: [facility] Start: 05-16-2020 End: 05-16-2020 Office outpatient visit 25 minutes Miranda Kelby [facility] Start: 05-16-2020 End: 05-16-2020 Patient encounter status Miranda Kelby DO Work Phone: [facility] Start: 05-16-2020 Review Miranda Kelby [facility] Start: 12-08-2019 End: 12-08-2019 Office outpatient visit 25 minutes Miranda Kelby [facility] Start: 04-18-2019 End: 04-18-2019 Office outpatient visit 25 minutes Miranda Kelby [facility] Start: 04-18-2019 Review Miranda Kelby [facility] Start: 05-20-2018 End: 05-20-2018 Patient encounter procedure Miranda Lama DO Work Phone: [facility] Start: 05-20-2018 End: 05-20-2018 Periodic preventive med est patient 65yrs& older Miranda Ryan [facility] Start: 05-05-2018 End: 05-05-2018 Office outpatient visit 15 minutes Miranda Ryan [facility] Start: 06-15-2017 End: 06-15-2017 Office outpatient visit 15 minutes Miranda Lama [facility] Start: 02-09-2017 End: 02-09-2017 Office outpatient visit 15 minutes Miranda Lama [facility] Start: 08-18-2016 End: 08-18-2016 Office outpatient visit 15 minutes Miranda Lama [facility] Start: 02-12-2016 End: 02-13-2016 Annotation/Addendum 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 Start: 07-23-2015 End: 07-23-2015 Office outpatient visit 10 minutes Miranda Lama [facility] Start: 07-09-2015 End: 07-09-2015 Office outpatient visit 15 minutes Miranda Lama [facility] Start: 08-23-2014 End: 08-23-2014 Office outpatient visit 15 minutes Miranda [facility] Start: 07-19-2014 End: 07-19-2014 Office outpatient visit 15 minutes Miranda L[facility] Start: 07-11-2014 End: 07-11-2014 Office outpatient visit 25 minutes Miranda Lama [facility] Internal Medicine Patient encounter procedure Megha Hill MA [facility] Work Phone: Patient encounter procedure Joaquín Smith CMA [facility]; [facility] Work Phone: Patient encounter procedure Ivon Ramos LPN [facility]; [facility] Work Phone: Patient encounter status Megha Hill MA [facility]; [facility] Work Phone: Patient encounter status Ivon Ramos LPN [facility]; [facility] Work Phone: Procedures Date Procedure Procedure Detail Performing Clinician Start: 01-09-2025 Vitamin D, 25-hydrox y measurement Dr. Miranda Lama DO Work Phone: Comment on above: Vitamin D StatusDefi ciency: <20 ng/mL (50nmol/L)Insufficiency: 20-30 ng/mL (50-75 nmol/L)Sufficiency: 30-100 ng/mL (75-250 nmol/L)Toxicity: >100 ng/mL (>250 nmol/L) Start: 11-26-2022 End: 01-26-2023 Lower Ext Art Exam w/ Exercise Procedure Note: See Note; NOTES: [facility] [address] [place] [address] Lower Ext Art Exam w/ Exercise 11/26/22 1013 MR#: [id number] Acct: [id number] Name: MEGHAN ODONNELL Rep #: [id number] : 1940 82 From: Az Larios MD Attending Dr: Dr. Miranda Lama, Status: D EP CLI Ordering Dr: Miranda Lama DO Date: 11/26/22 Location: [facility] Sex: F C Admitted: Reason For Study: PAD Procedure A bilateral lower extremity continuous wave Doppler with analog waveform analysis,segmental pressures,and ankle brachial indexes with exercise. Left Segmental Pressures Left brachial= 143mmHg. Left posterior tibial artery = 163mmHg. Left dorsalis pedis artery = 158mmHg. Left digit = 100 mmHg. The left dorsalis pedis waveforms are triphasic. The left posterior tibial artery waveforms are triphasic. Right Segmental Pressures Right brachial= 139mmHg. Right posterior tibial artery = 175mmHg. Right dorsalis pedis artery = 141mmHg. Right digit = 99 mmHg. The right dorsalis pedis waveforms are triphasic. The right posterior tibial artery waveforms are triphasic. Indices The right ankle brachial index by the dorsalis pedis is 0.99. The right ankle brachial index by the posterior tibial artery is 1.22. The right digital-brachial index is 0.69. The left ankle brachial index by the dorsalis pedis is 1.10. The left ankle brachial index by the posterior tibial artery is 1.14. The left digital-brachial index is 0.70. VL/Lower Ext Art Exam w/ Exercise Interpretation Summary Normal at rest with bilateral triphasic flow and NADIYA 1.22 and 1.14. ___ Ordering Physician: Miranda Lama Referring Physician: Miranda Lama M.D. Performed By: Heide Saini Shadia 01/26/23 0842 Date Az Larios MD CC: Dr. Miranda Lama DO Date Dictated: 11/26/22 1013 Date Transcribed: 01/26/[address] Liaison: Signed Miranda Lama DO Work Phone: Start: 07-30-2017 End: 07-30-2017 DXA BONE DENS W/VERT FX ASMT Comments: See Note; NOTES: [facility] Imaging Services [address] [place] [id number] DXA BONE DENS W/VERT FX ASMT MR#: [id number] Acct: [id number] Name: MEGHAN ODONNELL Rep #: [id number] : 1940 F 76 From: Scooter Trujillo MD PCP: Miranda Lama DO Status: REG CLI Study: DXA BONE DENS W/VERT FX ASMT Date of Exam: 07/30/17 Exam# [id number] Ordering Dr: Miranda Lama DO STUDY: DUAL ENERGY X-RAY ABSORPTIOMETRY / DXA REASON FOR EXAM: Female, 76 years old. The patient is postmenopausal. Loss of height. TECHNIQUE: Bone Mineral Density (BMD) measurements of lumbar spine and bilateral hips were obtained. COMPARISON: None. FINDINGS: Lumbar Spine (L1-L4): g/cm2 (1.470) / T-score (2.5) / Z-score (4.2) Findings are suggestive of normal bone density with a low fracture risk. Left Femur Total: g/cm2 (1.055) / T-score (0.4) / Z-score (2.1) Left Femoral Neck: g/cm2 (0.955) / T-score (-0.6) / Z-score (1.3) Right Femur Total: g/cm2 (1.034) / T-score (0.2) / Z-score (1.9) Right Femoral Neck: g/cm2 (1.025) / T-score (-0.1) / Z-score (1.8) HPBD/DXA BONE DENS W/VERT FX ASMT IMPRESSION: The patient is considered normal as outlined below according to World Dipesh Organization (WHO) criteria with a low fracture risk. Reference Information: The T-score is the number of standard deviations above or below the standard which is normal for young adults at their peak bone mineral density. The World Health Organization (WHO) interprets the T-scores as follows: Above -1 Normal bone density Between -1 and -2.5 Osteopenia Equal to / or below -2.5 Osteoporosis As a practical clinical guideline, osteopenia may be graded as follows: Mild -1 through -1.5 Moderate -1.6 through -2.0 Severe -2.1 through -2.4 The Z-score is the number of standard deviations above or below age-matched controls. A Z-score of less than -1.5 would be considered abnormal. References: 1. NIH Osteoporosis and Related Bone Diseases http://www.osteo.org 2. International Society for Clinical Densitometry http://www.iscd.org 3. National Osteoporosis Foundation http://www.nof.org Electronically Signed: Scooter Trujillo MD at 15:07 EST Tel [phone], Service support , CC: Miranda Lama DO Juvenile Court Liaison: Signed Miranda Lama Work Phone: Plan of Treatment Date Care Activity Detail Author Start: 11-17-2022 Procedure Education Eprescribed prescriptions (G8553) [facility] Work Phone: Start: 10-22-2022 Procedure Education Eprescribed prescriptions (G8553) [facility] Work Phone: Start: 10-22-2022 Provider Instructions for Treatment [facility] Work Phone: Start: 05-27-2021 Procedure Education Eprescribed prescriptions (G8553) [facility]; [facility] Work Phone: Start: 05-27-2021 Provider Instructions for Treatment Reviewed Lab [facility]; [facility] Work Phone: Start: 05-08-2021 Procedure Education Eprescribed prescriptions (G8553) [facility]; [facility] Work Phone: Start: 05-08-2021 Provider Instructions for Treatment [facility]; [facility] Work Phone: Start: 05-16-2020 Procedure Education Eprescribed prescriptions (G8553) [facility] Work Phone: Start: 05-16-2020 Provider Instructions for Treatment [facility] Work Phone: Start: 05-16-2020 25 hydroxy includes fractions if performed CALCIFEDIOL (09129) [facility] Work Phone: Start: 05-16-2020 Urnls dip stick/tablet reagent auto microscopy URINALYSIS, W/ MICRO (88819) [facility] Work Phone: Start: 05-16-2020 Urine albumin quantitative MICROALBUMIN: CREATININE RATIO (00473) AND (41752) [facility] Work Phone: Start: 05-16-2020 Comprehensive metabolic panel METABOLIC PANEL, COMPREHENSIVE (41303) [facility] Work Phone: Start: 05-16-2020 Blood count complete auto&auto difrntl wbc CBC W/AUTO DIFF WBC (66484) [facility] Work Phone: Start: 12-08-2019 Provider Instructions for Treatment [facility] Work Phone: Start: 12-08-2019 HbA1c (Bld) [Mass fraction] HGB A1C (64653) [facility] Work Phone: Start: 12-08-2019 Hemoglobin glycosylated a1c HGB A1C (89252) [facility]; [facility] Work Phone: Start: 12-08-2019 25 hydroxy includes fractions if performed CALCIFIDIOL (47445) VIT D 25 [facility] Work Phone: Start: 12-08-2019 Lipoprotein blood ton numbers & subclasses NMR Profile (54537) [facility] Work Phone: Start: 12-08-2019 Urnls dip stick/tablet reagent auto microscopy URINALYSIS, W/ MICRO (08215) [facility] Work Phone: Start: 12-08-2019 Urine albumin quantitative MICROALBUMIN: CREATININE RATIO (92294) AND (84367) [facility] Work Phone: Start: 12-08-2019 Comprehensive metabolic panel METABOLIC PANEL, COMPREHENSIVE (50249) [facility] Work Phone: Start: 12-08-2019 Blood count complete auto&auto difrntl wbc CBC W/AUTO DIFF WBC (61088) [facility] Work Phone: Start: 04-18-2019 Procedure Education Eprescribed prescriptions (G8553) [facility] Work Phone: Start: 04-18-2019 Provider Instructions for Treatment [facility] Work Phone: Start: 04-18-2019 Lipoprotein blood ton numbers & subclasses NMR Profile (58878) [facility] Work Phone: Start: 04-18-2019 HbA1c (Bld) [Mass fraction] HgA1C , Office (28575) [facility] Work Phone: Start: 04-18-2019 Hemoglobin glycosylated a1c HgA1C , Office (18152) [facility]; [facility] Work Phone: Start: 04-18-2019 Gluc bld gluc mntr dev cleared fda spec home use Blood Glucose , Office (37141) [facility]; [facility] Work Phone: Start: 04-18-2019 Glucose [Mass/Vol] Blood Glucose , Office (58386) [facility] Work Phone: Start: 04-18-2019 Urnls dip stick/tablet reagent auto microscopy URINALYSIS, W/ MICRO (12550) [facility] Work Phone: Start: 04-18-2019 Urine albumin quantitative MICROALBUMIN: CREATININE RATIO (69866) AND (29989) [facility] Work Phone: Start: 04-18-2019 Blood count manual cell count each CBC WITH MANUAL DIFF (37122) [facility] Work Phone: Start: 04-18-2019 Comprehensive metabolic panel METABOLIC PANEL, COMPREHENSIVE (66945) [facility] Work Phone: Start: 04-18-2019 25 hydroxy includes fractions if performed CALCIFEDIOL (78704) [facility] Work Phone: Start: 05-20-2018 Provider Instructions for Treatment [facility] Work Phone: Start: 05-05-2018 Procedure Education Eprescribed prescriptions (G8553) [facility] Work Phone: Start: 05-05-2018 Provider Instructions for Treatment [facility] Work Phone: Start: 05-05-2018 Urnls dip stick/tablet reagent auto microscopy URINALYSIS, W/ MICRO (17835) [facility] Work Phone: Start: 05-05-2018 Urine albumin quantitative MICROALBUMIN: CREATININE RATIO (87371) AND (71267) [facility] Work Phone: Start: 05-05-2018 Comprehensive metabolic panel METABOLIC PANEL, COMPREHENSIVE (57677) [facility] Work Phone: Start: 05-05-2018 Protein mass conc LIPOPROTEIN, BLD, BY NMR (86326) [facility] Work Phone: Start: 05-05-2018 Blood count complete auto&auto difrntl wbc CBC W/AUTO DIFF WBC (98560) [facility] Work Phone: Start: 06-15-2017 Provider Instructions for Treatment [facility] Work Phone: Start: 02-09-2017 Provider Instructions for Treatment [facility] Work Phone: Start: 08-18-2016 Provider Instructions for Treatment [facility] Work Phone: Start: 07-23-2015 Procedure Education Eprescribed prescriptions (G8553) [facility] Work Phone: Start: 07-23-2015 Provider Instructions for Treatment Follow up if no improvement or if symptoms worsen [facility] Work Phone: Start: 07-09-2015 Provider Instructions for Treatment [facility] Work Phone: Start: 08-23-2014 Provider Instructions for Treatment Follow up in 3 months with KF for Gen Med [facility] Work Phone: Start: 07-19-2014 Provider Instructions for Treatment Follow up if no improvement or if symptoms worsen [facility] Work Phone: Start: 07-11-2014 Provider Instructions for Treatment Follow up in 1 week [facility] Work Phone: [facility] Work Phone: [facility] Work Phone: [facility] Work Phone: [facility] Work Phone: [facility] Work Phone: [facility] Work Phone: [facility] Work Phone: [facility] Work Phone: [facility] Work Phone: [facility] Work Phone: [facility] Work Phone: [facility] Work Phone: Payers Date Payer Category Payer Self-pay 2023 Unknown [id number] 2022 Unknown [id number] 2014 Medicare [id number] 1940 Unknown [id number] 1940 Unknown [id number] 1940 Unknown [id number] Medicare [id number] Unknown [employer] [facility] Plan Unknown [id number] Social History Date Type Detail Facility Caffeine Use Never smoker [facility] Work Phone: Comment on above: qd none Exercise History: Exercises regularly. Co [facility] Work Phone: Living Situation: Lives alone. Comprehens [facility] Work Phone: Tobacco use: Never smoker. [facility] Work Phone: Exercise History: Exercise History: Compr [facility]; [facility] Work Phone: Living Situation: Living Situation: Compr [facility]; [facility] Work Phone: Tobacco use: Tobacco use: [facility] Work Phone: Start: 1940 Sex Assigned At Female [facility] Tobacco smoking status No Smoking Status Entered [facility] Start: 07-12-2013 Tobacco smoking status NHIS Ex-smoker (finding) [facility] Functional Status Date Assessment Result Facility 02-14-2023 Functional Status Independent Jarek escamilla [facility] 02-13-2023 Functional Status Ambulating in anderson, Ambulating in room, Awake, Bathroom privileges [facility] 04-18-2019 LP-IR Score LP-IR Score 56 [facility] Work Phone: Comment on above: INSULIN RESISTANCE MARKER <--Insulin Sen sitive Insulin Resistant--> Percentile in Reference PopulationInsulin Resistance ScoreLP-IR Score Low 25th 50th 75th High <27 27 45 63 >63LP-IR Score is inaccurate if patient is non-fasting. .The LP-IR score is a laboratory developed index that has beenassociated with insulin resistance and diabetes risk and should beused as one component of a physician's clinical assessment. Test(s) 396098-QSV-U ; 177215-BBR-I; 558599-VIT-L; 754863-Nesffbgkqguut; 763380-Hwwlddlhfni, Total; 211887-LCB-E (Total);599534-Qsxef LDL-P; 494554-ZTZ Size; 873945-NB-JH Scorewas developed and its performance characteristics determinedby [employer]. It has not been cleared or approved by the Foodand Drug Administration.PATIENT NOT FASTINGPERFORMED BY: BN [employer] [address] [id number] BY: [employer] [id number] [facility] [id number] 05-05-2018 LP-IR Score LP-IR Score 60 [facility] Work Phone: Comment on above: INSULIN RESISTANCE MARKER <--Insulin Sen sitive Insulin Resistant--> Percentile in Reference PopulationInsulin Resistance ScoreLP-IR Score Low 25th 50th 75th High <27 27 45 63 >63LP-IR Score is inaccurate if patient is non-fasting. .The LP-IR score is a laboratory developed index that has beenassociated with insulin resistance and diabetes risk and should beused as one component of a physician's clinical assessment. TheLP-IR score listed above has not been cleared by the [place] Food andDrug Administration. PATIENT WAS FASTINGP ERFORMED BY: KRISTIN [facility] [id number] [facility] [id number] BY: JC [facility] Evanhd2413 [facility] Centerjam[facility] [place] [id number] Mental Status Date Assessment Result Facility 02-14-2023 Mental Status Orientation Oriented x 4 [facility] 02-13-2023 Mental Status Oriented x 4 [facility] Clinical Notes 10-07-2021 to 02-14-2023 Note Date & Type Note Facility 02-14-2023 Hospital Discharge instructions Patient Education 02/14/2023 12:14:27 Cellulitis Skin Infection Cellulitis Cellulitis is an infection of the deep layers of skin. A break in the skin, such as a cut or scratch, can let bacteria under the skin. If the bacteria get to deep layers of the skin, it can be serious. If not treated, cellulitis can get into the bloodstream and lymph nodes. The infection can then spread throughout the body. This causes serious illness. Cellulitis causes the affected skin to become red, swollen, warm, and sore. The reddened areas have a visible border. An open sore may leak fluid (pus). You may have a fever, chills, and pain. Cellulitis is treated with antibiotics taken for 7 to 10 days. An open sore may be cleaned and covered with cool wet gauze. Symptoms should get better 1 to 2 days after treatment is started. Make sure to take all the antibiotics for the full number of days until they are gone. Keep taking the medicine even if your symptoms go away. Home care Follow these tips: Limit the use of the part of your body with cellulitis. If the infection is on your leg, keep your leg raised while sitting. This will help to reduce swelling. Take all of the antibiotic medicine exactly as directed until it is gone. Do not miss any doses, especially during the first 7 days. Don t stop taking the medicine when your symptoms get better. Keep the affected area clean and dry. Wash your hands with soap and warm water before and after touching your skin. Anyone else who touches your skin should also wash his or her hands. Don't share towels. Follow-up care Follow up with your healthcare provider, or as advised. If your infection does not go away on the first antibiotic, your healthcare provider will prescribe a different one. When to seek medical advice Call your healthcare provider right away if any of these occur: Red areas that spread Swelling or pain that gets worse Fluid leaking from the skin (pus) Fever higher of 100.4 F (38.0 C) or higher after 2 days on antibiotics 7998-7259 [employer]. [address] [place] [address], [place] [address]. All rights reserved. This information is not intended as a substitute for professional medical care. Always follow your healthcare professional's instructions. Follow Up Care 02/14/2023 11:55:17 With:MIRANDA LAMA DO Address: [address] [place] [address] [address] [place] [address]- When:2-4 days Comments:Schedule appointment as soon as possible [facility] 02-14-2023 Emergency department Discharge summary Discharge Instructions Thank you for allowing [facility] to assist you with your healthcare needs. The following is important discharge information regarding your hospital visit. Diagnosis from Today's Visit Bee sting What to Do Next Instructions from Your Care Team Stop taking your Keflex prescription No qualifying data available. Post Acute Orders No qualifying data available. You Need to Schedule the Following Appointments Follow Up with MIRANDA LAMA DO When Within 2-4 days Why: Schedule appointment as soon as possible Where: [address] [place] [address] [address] [place] [address]- Allergies Novocaine penicillin tetanus immune globulin Medications Please ask your primary doctor or pharmacist before taking any other medication not listed, including over the counter drugs, herbal medications, vitamins and or supplements as they may interact with your home medications. What How Much When Instructions Last Dose New clindamycin (clindamycin 300 mg oral capsule) 1 cap by mouth Every 6 hours Duration: 7 Days Printed Prescription Unchanged cephalexin (cephalexin 500 mg oral capsule) 1 cap by mouth Two (2) times a day Duration: 5 Days Take with a probiotic Please take this list to your next doctor s visit. Bring all medications you take, including over the counter medications, herbals and other supplements with you to your doctor s visit. Patients and families are reminded to discard old lists and to update any records with all medication providers or retail pharmacies. Education Materials Cellulitis Cellulitis is an infection of the deep layers of skin. A break in the skin, such as a cut or scratch, can let bacteria under the skin. If the bacteria get to deep layers of the skin, it can be serious. If not treated, cellulitis can get into the bloodstream and lymph nodes. The infection can then spread throughout the body. This causes serious illness. Cellulitis causes the affected skin to become red, swollen, warm, and sore. The reddened areas have a visible border. An open sore may leak fluid (pus). You may have a fever, chills, and pain. Cellulitis is treated with antibiotics taken for 7 to 10 days. An open sore may be cleaned and covered with cool wet gauze. Symptoms should get better 1 to 2 days after treatment is started. Make sure to take all the antibiotics for the full number of days until they are gone. Keep taking the medicine even if your symptoms go away. Home care Follow these tips: Limit the use of the part of your body with cellulitis. If the infection is on your leg, keep your leg raised while sitting. This will help to reduce swelling. Take all of the antibiotic medicine exactly as directed until it is gone. Do not miss any doses, especially during the first 7 days. Don t stop taking the medicine when your symptoms get better. Keep the affected area clean and dry. Wash your hands with soap and warm water before and after touching your skin. Anyone else who touches your skin should also wash his or her hands. Don't share towels. Follow-up care Follow up with your healthcare provider, or as advised. If your infection does not go away on the first antibiotic, your healthcare provider will prescribe a different one. When to seek medical advice Call your healthcare provider right away if any of these occur: Red areas that spread Swelling or pain that gets worse Fluid leaking from the skin (pus) Fever higher of 100.4 F (38.0 C) or higher after 2 days on antibiotics 0814-2791 [employer]. [address] [place] [address], [place] [address]. All rights reserved. This information is not intended as a substitute for professional medical care. Always follow your healthcare professional's instructions. Additional Information VACCINATE! IT SAVES LIVES! Members of the community who have not yet received the COVID-19 vaccine and would like to receive it can visit one of [facility] vaccine clinics. There are many vaccine clinic locations within the [facility]. For locations and available times, please visit [email or web address].[email or web address] [email or web address] It is important to note that some COVID mobile vaccine clinics are held outdoors and may be canceled in rainy or stormy conditions. To learn more about pediatric vaccinations (ages 5-11), we invite you to visit the [facility] webpage. https://www.[facility].org/p ages/5649-Ohqhn-Flwyeyxjcie-Freq jdizod-Elhmj-Ebizmcueb.html To learn more about the COVID-19 vaccine, we invite you to visit the CDC website for a list of frequently asked questions. https://www.cdc.gov/coronavirus/ 2019-ncov/vaccines/faq.html [facility] Patient Portal Access Instructions: Stay connected with your healthcare team and access your personal medical information anytime with the [facility] Patient Portal. If you would like a full copy of your medical records please contact the [facility] Medical Records Department Thursday through Thursday between 8a.m. and 4:30p.m. Please follow the directions below to access the portal: 1.Access the email account you provided upon registration to the hospital.2.Look for an invitation email from [facility].3.Open the email and access the invitation link: Accept Invitation to [facility]4.Fill in the required bacon to create your account. Sign into [email or web address] with your username and password that you created in the above steps to stay up to date. You can then view a summary of results, a summary of your visits, and the ability to download your summaries to your computer or send the information securely to a physician. Remember that your healthcare information is confidential, so carefully consider who you will allow to register on the [facility] Patient Portal for access to your information. You can also access the [facility] Patient Portal on the [employer]. Simply click on Health Records under Health Data and then click on the [employer] logo. HOW TO SAFELY DISPOSE OF PRESCRIPTION MEDICATIONS Please use one of the following methods to safely dispose of your unused medications. 1.Use a drug disposal kit: the drug disposal pouch allows you to safely discard your old and unused drugs. Ask your nurse to give you one when you are discharged.2.Visit a local take-back location: Many local pharmacies and police departments have programs that collect old and unwanted prescription drugs. Call your local pharmacy or go to http://Medius.FreshRealm/8B4Yv9v to find one close to you.3.Make use of household items: Use cat litter or old coffee grounds to dispose medications if other options are not available. Mix your drugs with these household products, seal them in an airtight container and throw it into the garbage. Call [facility]: [phone] to be sure your drugs can be disposed of in this way. Some medicines may require a different approach.4.Never flush your medications down the toilet. IF YOU HAVE BEEN PRESCRIBED AN OPIOIDS FOR PAIN If you have been prescribed an opioid (such as hydrocodone, oxycodone or morphine), it is critical to understand the possible side effects and risks of opioid pain medications. Even when taken as directed, opioids can have several side effects including: Tolerance, meaning you might need to take more of a medication for the same pain relief. Nausea, vomiting and/or constipation. Sleepiness, dizziness, dry mouth, confusion, depression or itching. Physical dependence, meaning you have withdrawal symptoms when a medication is stopped ? this can develop within a few days. KNOW YOUR RESPONSIBILITIES It is important to know exactly how much and how often to take the opioid pain medications you are prescribed. Never take opioids in higher amounts or more often than prescribed. Do not combine opioids with alcohol or other drugs that cause drowsiness, such as benzodiazepines, also known as benzos, including diazepam and alprazolam, muscle relaxants or sleep aids. Never sell or share prescription opioids. This is illegal. Store opioids in a secure place and out of reach of others (including children, family, friends and visitors). The last page(s) of this document has been signed and retained as a CHART COPY Signatures Patient Education Materials Cellulitis Skin Infection Medication Leaflets My discharge plan and instructions have been reviewed and explained to me and I,MEGHAN ODONNELL understand my current condition and have read and understand these discharge instructions. I have received a written copy of the plan/instructions. If I have questions, I am aware that I should contact my doctor. Patient/Daytime Babysitter Signature: Date/Time: Relationship to Patient: Witness Name/Signature: Date/Time: [facility] 02-14-2023 Emergency department Discharge summary Discharge Instructions Thank you for allowing [facility] to assist you with your healthcare needs. The following is important discharge information regarding your hospital visit. Diagnosis from Today's Visit Bee sting What to Do Next Instructions from Your Care Team No qualifying data available. Post Acute Orders No qualifying data available. You Need to Schedule the Following Appointments Follow Up with MIRANDA LAMA DO When Within 2-4 days Why: Schedule appointment as soon as possible Where: [address] [facility] [place], [place] [id number]- Allergies Novocaine penicillin tetanus immune globulin Medications Please ask your primary doctor or pharmacist before taking any other medication not listed, including over the counter drugs, herbal medications, vitamins and or supplements as they may interact with your home medications. What How Much When Instructions Last Dose New clindamycin (clindamycin 300 mg oral capsule) 1 cap by mouth Every 6 hours Duration: 7 Days Printed Prescription Unchanged cephalexin (cephalexin 500 mg oral capsule) 1 cap by mouth Two (2) times a day Duration: 5 Days Take with a probiotic Please take this list to your next doctor s visit. Bring all medications you take, including over the counter medications, herbals and other supplements with you to your doctor s visit. Patients and families are reminded to discard old lists and to update any records with all medication providers or retail pharmacies. Education Materials Cellulitis Cellulitis is an infection of the deep layers of skin. A break in the skin, such as a cut or scratch, can let bacteria under the skin. If the bacteria get to deep layers of the skin, it can be serious. If not treated, cellulitis can get into the bloodstream and lymph nodes. The infection can then spread throughout the body. This causes serious illness. Cellulitis causes the affected skin to become red, swollen, warm, and sore. The reddened areas have a visible border. An open sore may leak fluid (pus). You may have a fever, chills, and pain. Cellulitis is treated with antibiotics taken for 7 to 10 days. An open sore may be cleaned and covered with cool wet gauze. Symptoms should get better 1 to 2 days after treatment is started. Make sure to take all the antibiotics for the full number of days until they are gone. Keep taking the medicine even if your symptoms go away. Home care Follow these tips: Limit the use of the part of your body with cellulitis. If the infection is on your leg, keep your leg raised while sitting. This will help to reduce swelling. Take all of the antibiotic medicine exactly as directed until it is gone. Do not miss any doses, especially during the first 7 days. Don t stop taking the medicine when your symptoms get better. Keep the affected area clean and dry. Wash your hands with soap and warm water before and after touching your skin. Anyone else who touches your skin should also wash his or her hands. Don't share towels. Follow-up care Follow up with your healthcare provider, or as advised. If your infection does not go away on the first antibiotic, your healthcare provider will prescribe a different one. When to seek medical advice Call your healthcare provider right away if any of these occur: Red areas that spread Swelling or pain that gets worse Fluid leaking from the skin (pus) Fever higher of 100.4 F (38.0 C) or higher after 2 days on antibiotics 6693-8127 [employer]. [address] [place] [address], [place] [address]. All rights reserved. This information is not intended as a substitute for professional medical care. Always follow your healthcare professional's instructions. Additional Information VACCINATE! IT SAVES LIVES! Members of the community who have not yet received the COVID-19 vaccine and would like to receive it can visit one of [facility] vaccine clinics. There are many vaccine clinic locations within the [facility]. For locations and available times, please visit [email or web address] [email or web address] It is important to note that some COVID mobile vaccine clinics are held outdoors and may be canceled in rainy or stormy conditions. To learn more about pediatric vaccinations (ages 5-11), we invite you to visit the [facility] webpage. https://www.[facility].org/p ages/9723-Llmpg-Bxuqxxhfepf-Freq cxyubd-Tphtb-Rbwgvkect.html To learn more about the COVID-19 vaccine, we invite you to visit the CDC website for a list of frequently asked questions. https://www.cdc.gov/coronavirus/ 2019-ncov/vaccines/faq.html [facility] Patient Portal Access Instructions: Stay connected with your healthcare team and access your personal medical information anytime with the [facility] Patient Portal. If you would like a full copy of your medical records please contact the [facility] Medical Records Department Thursday through Thursday between 8a.m. and 4:30p.m. Please follow the directions below to access the portal: 1.Access the email account you provided upon registration to the hospital.2.Look for an invitation email from [facility].3.Open the email and access the invitation link: Accept Invitation to [facility]4.Fill in the required bacon to create your account. Sign into [email or web address] with your username and password that you created in the above steps to stay up to date. You can then view a summary of results, a summary of your visits, and the ability to download your summaries to your computer or send the information securely to a physician. Remember that your healthcare information is confidential, so carefully consider who you will allow to register on the [facility] Patient Portal for access to your information. You can also access the [facility] Patient Portal on the [employer] rick. Simply click on Health Records under Health Data and then click on the [facility] logo. HOW TO SAFELY DISPOSE OF PRESCRIPTION MEDICATIONS Please use one of the following methods to safely dispose of your unused medications. 1.Use a drug disposal kit: the drug disposal pouch allows you to safely discard your old and unused drugs. Ask your nurse to give you one when you are discharged.2.Visit a local take-back location: Many local pharmacies and police departments have programs that collect old and unwanted prescription drugs. Call your local pharmacy or go to http://Medius.FreshRealm/2X9Mp2f to find one close to you.3.Make use of household items: Use cat litter or old coffee grounds to dispose medications if other options are not available. Mix your drugs with these household products, seal them in an airtight container and throw it into the garbage. Call [facility]: [phone] to be sure your drugs can be disposed of in this way. Some medicines may require a different approach.4.Never flush your medications down the toilet. IF YOU HAVE BEEN PRESCRIBED AN OPIOIDS FOR PAIN If you have been prescribed an opioid (such as hydrocodone, oxycodone or morphine), it is critical to understand the possible side effects and risks of opioid pain medications. Even when taken as directed, opioids can have several side effects including: Tolerance, meaning you might need to take more of a medication for the same pain relief. Nausea, vomiting and/or constipation. Sleepiness, dizziness, dry mouth, confusion, depression or itching. Physical dependence, meaning you have withdrawal symptoms when a medication is stopped ? this can develop within a few days. KNOW YOUR RESPONSIBILITIES It is important to know exactly how much and how often to take the opioid pain medications you are prescribed. Never take opioids in higher amounts or more often than prescribed. Do not combine opioids with alcohol or other drugs that cause drowsiness, such as benzodiazepines, also known as benzos, including diazepam and alprazolam, muscle relaxants or sleep aids. Never sell or share prescription opioids. This is illegal. Store opioids in a secure place and out of reach of others (including children, family, friends and visitors). The last page(s) of this document has been signed and retained as a CHART COPY Signatures Patient Education Materials Cellulitis Skin Infection Medication Leaflets My discharge plan and instructions have been reviewed and explained to me and I,MEGHAN ODONNELL understand my current condition and have read and understand these discharge instructions. I have received a written copy of the plan/instructions. If I have questions, I am aware that I should contact my doctor. Patient/Daytime Babysitter Signature: Date/Time: Relationship to Patient: Witness Name/Signature: Date/Time: [facility] 02-13-2023 Hospital Discharge instructions Patient Education 02/13/2023 21:22:19 Insect Sting, Local Reaction Local Reaction to an Insect Sting You have been stung or bitten by an insect. The insect s venom or body fluid is causing your skin to react in the area where you were stung or bitten. This often causes redness, itching and swelling. This reaction will fade over a few hours, but it can last a few days. An insect bite or sting can become infected 1 to 3 days later, so watch for the signs below. Sometimes it is hard to tell the difference between a local reaction to the insect bite or sting and an early infection, so you may be given antibiotics. Common insect stings causing problems are from wasps, bees, yellow jackets, and hornets. Common bites are from spiders, mosquitoes, fleas, or ticks. Other types of insects may be more common in different parts of the country or world. Most people think of allergic reactions when someone has a rash or itchy skin. Symptoms can include: Rash, hives, redness, welts, or blisters Itching, burning, stinging, or pain Swelling around the sting area. Sometimes swelling spreads to other areas. Home care Medicines The healthcare provider may prescribe medicines to relieve swelling, itching, and pain. Follow the provider s instructions when taking these medicines. If you had a severe reaction, the provider may prescribe an epinephrine kit. Epinephrine will stop an allergic reaction from getting worse. Before you leave the hospital, be sure that you understand when and how to use this medicine. Diphenhydramine is an oral antihistamine available at drugstores and groceries. Unless a prescription antihistamine was given, you can use this medicine to reduce itching if large areas of the skin are involved. The medicine may make you sleepy, so be careful using it in the daytime or when going to school, working, or driving. Don t use diphenhydramine if you have glaucoma or if you are a man with trouble urinating because of an enlarged prostate. Other antihistamines cause less drowsiness and are good choices for daytime use. Ask your pharmacist for suggestions. Don t use diphenhydramine cream on your skin. In some people it can cause additional reaction and make you allergic to this medicine. Calamine lotion or oatmeal baths sometimes help with itching. You may use acetaminophen or ibuprofen to control pain, unless another pain medicine was prescribed. Talk with your healthcare provider before using these medicines if you have chronic liver or kidney disease. Also talk with your provider if you ve had a stomach ulcer or GI bleeding. General care If itching is a problem, don t take hot showers or baths. Stay out of direct sunlight. These heat up your skin and will make the itching worse. Use an ice pack to reduce local areas of redness and itching. You can make your own ice pack by putting ice cubes in a bag that seals and wrapping it in a thin towel. Don t put the ice directly on your skin, because it can damage the skin. Try not to scratch any affected areas and damage the skin. This will help prevent an infection. If oral antibiotics were prescribed, be sure to take them until finished. Preventing future reactions Future reactions could be worse than this one, so try to stay away from places where you might be stung again. Be aware that honeybees nest in trees. Wasps and yellow jackets nest in the ground, trees, or roof eaves. If you are stung by a honeybee, a stinger will remain in your skin. Wasps, yellow jackets, and hornets don t leave a stinger behind. Move away from the nest area right away. The stinger of a honeybee releases a substance that will attract other bees to you. Once you are away from the nest, then remove the stinger as quickly as possible. After any sting, you may apply ice and take diphenhydramine or another antihistamine. If you develop any of the warning signs below, seek help right away. If you are at high risk for another sting, or if your reaction included dizziness, fainting, or trouble breathing or swallowing, ask your doctor for an insect allergy kit. Remove any ticks on the skin with a set of fine tweezers. Patient Registration Representative the tick as close to the skin as possible. Pull back gently but firmly. Use an even, steady pressure. Don t jerk or twist. Don t squeeze, crush, or puncture the body of the tick. The bodily fluids may contain infection-causing germs. Don t use a smoldering match or cigarette, nail hungarian, petroleum jelly, liquid soap, or kerosene. These may irritate the tick. If any mouthparts of the tick remain in the skin, these should be left alone. They will fall off on their own. Trying to remove these parts may damage the skin unless they can be removed very easily. After the tick is removed, wash the bite area with rubbing alcohol, iodine, or soap and water. Follow-up care Follow up with your doctor in 2 days, or as advised, if your symptoms don t start to get better. Call 911 Call 911 if any of these occur: Trouble breathing or swallowing, or wheezing New or worsening swelling in the mouth, throat, or tongue Hoarse voice or trouble speaking Confused Very drowsy or trouble awakening Fainting or loss of consciousness Rapid heart rate Low blood pressure Feeling of doom Nausea, vomiting, abdominal pain, or diarrhea Vomiting blood, or large amounts of blood in stool Seizure When to seek medical advice Call your healthcare provider right away if any of these occur: Spreading areas of itching, redness or swelling New or worse swelling in the face, eyelids, or lips Dizziness or weakness Also call your provider right away if you have signs of infection: Spreading redness Increased pain or swelling Fever of 100.4 F (38 C) or higher, or as directed by your healthcare provider Colored fluid draining from the sting area [id number] [employer]. [address] [place] [address]. All rights reserved. This information is not intended as a substitute for professional medical care. Always follow your healthcare professional's instructions. Follow Up Care 02/13/2023 20:55:32 With:MIRANDA LAMA DO Address: [address] [place] [address] [address] [place] [address]- When:2-4 days [facility] 02-13-2023 Note Discharge Instructions Thank you for allowing [facility] to assist you with your healthcare needs. The following is important discharge information regarding your hospital visit. Diagnosis from Today's Visit Bee sting What to Do Next Instructions from Your Care Team No qualifying data available. Post Acute Orders No qualifying data available. You Need to Schedule the Following Appointments Follow Up with MIRANDA LAMA DO When Within 2-4 days Where: [address] [facility] [facility] [address] [place] [address]- Allergies Novocaine penicillin tetanus immune globulin Medications Please ask your primary doctor or pharmacist before taking any other medication not listed, including over the counter drugs, herbal medications, vitamins and or supplements as they may interact with your home medications. What How Much When Instructions Last Dose New cephalexin (cephalexin 500 mg oral capsule) 1 cap by mouth Two (2) times a day Duration: 5 Days Take with a probiotic Printed Prescription Please take this list to your next doctor s visit. Bring all medications you take, including over the counter medications, herbals and other supplements with you to your doctor s visit. Patients and families are reminded to discard old lists and to update any records with all medication providers or retail pharmacies. Medication Leaflets cephalexin (sef a THALIA in) What is the most important information I should know about cephalexin? You should not use this medicine if you are allergic to cephalexin or to similar antibiotics, such as Ceftin, Cefzil, Omnicef, and others. Tell your doctor if you are allergic to any drugs, especially penicillins or other antibiotics. What is cephalexin? Cephalexin is a cephalosporin (SEF a low spor in) antibiotic that is used to treat bacterial infections of the lungs, ear, skin, bones, bladder, and kidneys. Cephalexin is used to treat infections in adults and children who are at least 1 year old. Cephalexin may also be used for purposes not listed in this medication guide. What should I discuss with my healthcare provider before taking cephalexin? You should not use this medicine if you are allergic to cephalexin or any other cephalosporin antibiotic (cefdinir, cefadroxil, cefoxitin, cefprozil, ceftriaxone, cefuroxime, Omnicef, and others). Tell your doctor if you have ever had: an allergy to any drug (especially penicillin); liver or kidney disease; or intestinal problems, such as colitis. The liquid form of cephalexin may contain sugar. This may affect you if you have diabetes. Tell your doctor if you are or breast-feeding. How should I take cephalexin? Follow all directions on your prescription label and read all medication guides or instruction sheets. Use the medicine exactly as directed. Do not use cephalexin to treat any condition that has not been checked by your doctor. Measure liquid medicine carefully. Use the dosing syringe provided, or use a medicine dose-measuring device (not a kitchen spoon). Use this medicine for the full prescribed length of time, even if your symptoms quickly improve. Skipping doses can increase your risk of infection that is resistant to medication. Cephalexin will not treat a viral infection such as the flu or a common cold. Do not share cephalexin with another person, even if they have the same symptoms you have. This medicine can affect the results of certain medical tests. Tell any doctor who treats you that you are using cephalexin. Store the tablets and capsules at room temperature away from moisture, heat, and light. Store the liquid medicine in the refrigerator. Throw away any unused liquid after 14 days. What happens if I miss a dose? Take the medicine as soon as you can, but skip the missed dose if it is almost time for your next dose. Do not take two doses at one time. What happens if I overdose? Seek emergency medical attention or call the Poison Help line at . Overdose symptoms may include nausea, vomiting, stomach pain, diarrhea, and blood in your urine. What should I avoid while taking cephalexin? Antibiotic medicines can cause diarrhea, which may be a sign of a new infection. If you have diarrhea that is watery or bloody, call your doctor before using anti-diarrhea medicine. What are the possible side effects of cephalexin? Get emergency medical help if you have signs of an allergic reaction (hives, difficult breathing, swelling in your face or throat) or a severe skin reaction (fever, sore throat, burning eyes, skin pain, red or purple skin rash with blistering and peeling). Call your doctor at once if you have: severe stomach pain, diarrhea that is watery or bloody (even if it occurs months after your last dose); unusual tiredness, feeling light-headed or short of breath; easy bruising, unusual bleeding, purple or red spots under your skin; a seizure; pale skin, cold hands and feet; yellowed skin, dark colored urine; fever, weakness; or pain in your side or lower back, painful urination. Common side effects may include: diarrhea; nausea, vomiting; indigestion, stomach pain; or vaginal itching or discharge. This is not a complete list of side effects and others may occur. Call your doctor for medical advice about side effects. You may report side effects to FDA at 5-933-UOW-6109. What other drugs will affect cephalexin? Tell your doctor about all your other medicines, especially: metformin; or probenecid. This list is not complete. Other drugs may affect cephalexin, including prescription and gopi-bsf-nyiuvjd medicines, vitamins, and herbal products. Not all possible drug interactions are listed here. Where can I get more information? Your pharmacist can provide more information about cephalexin. Remember, keep this and all other medicines out of the reach of children, never share your medicines with others, and use this medication only for the indication prescribed. Every effort has been made to ensure that the information provided by [employer]') is accurate, up-to-date, and complete, but no guarantee is made to that effect. Drug information contained herein may be time sensitive. [employer] information has been compiled for use by healthcare practitioners and consumers in the [place] and therefore [employer] does not warrant that uses outside of the [place] are appropriate, unless specifically indicated otherwise. [employer]'s drug information does not endorse drugs, diagnose patients or recommend therapy. [employer] drug information is an informational resource designed to assist licensed healthcare practitioners in caring for their patients and/or to serve consumers viewing this service as a supplement to, and not a substitute for, the expertise, skill, knowledge and judgment of healthcare practitioners. The absence of a warning for a given drug or drug combination in no way should be construed to indicate that the drug or drug combination is safe, effective or appropriate for any given patient. [employer] does not assume any responsibility for any aspect of healthcare administered with the aid of information [employer] provides. The information contained herein is not intended to cover all possible uses, directions, precautions, warnings, drug interactions, allergic reactions, or adverse effects. If you have questions about the drugs you are taking, check with your doctor, nurse or pharmacist. Copyright 6198-4351 [employer] Version: 12.. Revision Date: 02/11/2023. cephalexin (sef a THALIA in) What is the most important information I should know about cephalexin? You should not use this medicine if you are allergic to cephalexin or to similar antibiotics, such as Ceftin, Cefzil, Omnicef, and others. Tell your doctor if you are allergic to any drugs, especially penicillins or other antibiotics. What is cephalexin? Cephalexin is a cephalosporin (SEF a low spor in) antibiotic that is used to treat bacterial infections of the lungs, ear, skin, bones, bladder, and kidneys. Cephalexin is used to treat infections in adults and children who are at least 1 year old. Cephalexin may also be used for purposes not listed in this medication guide. What should I discuss with my healthcare provider before taking cephalexin? You should not use this medicine if you are allergic to cephalexin or any other cephalosporin antibiotic (cefdinir, cefadroxil, cefoxitin, cefprozil, ceftriaxone, cefuroxime, Omnicef, and others). Tell your doctor if you have ever had: an allergy to any drug (especially penicillin); liver or kidney disease; or intestinal problems, such as colitis. The liquid form of cephalexin may contain sugar. This may affect you if you have diabetes. Tell your doctor if you are or breast-feeding. How should I take cephalexin? Follow all directions on your prescription label and read all medication guides or instruction sheets. Use the medicine exactly as directed. Do not use cephalexin to treat any condition that has not been checked by your doctor. Measure liquid medicine carefully. Use the dosing syringe provided, or use a medicine dose-measuring device (not a kitchen spoon). Use this medicine for the full prescribed length of time, even if your symptoms quickly improve. Skipping doses can increase your risk of infection that is resistant to medication. Cephalexin will not treat a viral infection such as the flu or a common cold. Do not share cephalexin with another person, even if they have the same symptoms you have. This medicine can affect the results of certain medical tests. Tell any doctor who treats you that you are using cephalexin. Store the tablets and capsules at room temperature away from moisture, heat, and light. Store the liquid medicine in the refrigerator. Throw away any unused liquid after 14 days. What happens if I miss a dose? Take the medicine as soon as you can, but skip the missed dose if it is almost time for your next dose. Do not take two doses at one time. What happens if I overdose? Seek emergency medical attention or call the Poison Help line at . Overdose symptoms may include nausea, vomiting, stomach pain, diarrhea, and blood in your urine. What should I avoid while taking cephalexin? Antibiotic medicines can cause diarrhea, which may be a sign of a new infection. If you have diarrhea that is watery or bloody, call your doctor before using anti-diarrhea medicine. What are the possible side effects of cephalexin? Get emergency medical help if you have signs of an allergic reaction (hives, difficult breathing, swelling in your face or throat) or a severe skin reaction (fever, sore throat, burning eyes, skin pain, red or purple skin rash with blistering and peeling). Call your doctor at once if you have: severe stomach pain, diarrhea that is watery or bloody (even if it occurs months after your last dose); unusual tiredness, feeling light-headed or short of breath; easy bruising, unusual bleeding, purple or red spots under your skin; a seizure; pale skin, cold hands and feet; yellowed skin, dark colored urine; fever, weakness; or pain in your side or lower back, painful urination. Common side effects may include: diarrhea; nausea, vomiting; indigestion, stomach pain; or vaginal itching or discharge. This is not a complete list of side effects and others may occur. Call your doctor for medical advice about side effects. You may report side effects to FDA at 0-054-PZQ-5244. What other drugs will affect cephalexin? Tell your doctor about all your other medicines, especially: metformin; or probenecid. This list is not complete. Other drugs may affect cephalexin, including prescription and ewkj-usx-azojlog medicines, vitamins, and herbal products. Not all possible drug interactions are listed here. Where can I get more information? Your pharmacist can provide more information about cephalexin. Remember, keep this and all other medicines out of the reach of children, never share your medicines with others, and use this medication only for the indication prescribed. Every effort has been made to ensure that the information provided by [employer]') is accurate, up-to-date, and complete, but no guarantee is made to that effect. Drug information contained herein may be time sensitive. [employer] information has been compiled for use by healthcare practitioners and consumers in the [place] and therefore [employer] does not warrant that uses outside of the [place] are appropriate, unless specifically indicated otherwise. [employer] drug information does not endorse drugs, diagnose patients or recommend therapy. [employer] drug information is an informational resource designed to assist licensed healthcare practitioners in caring for their patients and/or to serve consumers viewing this service as a supplement to, and not a substitute for, the expertise, skill, knowledge and judgment of healthcare practitioners. The absence of a warning for a given drug or drug combination in no way should be construed to indicate that the drug or drug combination is safe, effective or appropriate for any given patient. [employer] does not assume any responsibility for any aspect of healthcare administered with the aid of information [employer] provides. The information contained herein is not intended to cover all possible uses, directions, precautions, warnings, drug interactions, allergic reactions, or adverse effects. If you have questions about the drugs you are taking, check with your doctor, nurse or pharmacist. Copyright 6889-2178 [employer] Version: 06.12. Revision Date: 02/11/2023. Education Materials Local Reaction to an Insect Sting You have been stung or bitten by an insect. The insect s venom or body fluid is causing your skin to react in the area where you were stung or bitten. This often causes redness, itching and swelling. This reaction will fade over a few hours, but it can last a few days. An insect bite or sting can become infected 1 to 3 days later, so watch for the signs below. Sometimes it is hard to tell the difference between a local reaction to the insect bite or sting and an early infection, so you may be given antibiotics. Common insect stings causing problems are from wasps, bees, yellow jackets, and hornets. Common bites are from spiders, mosquitoes, fleas, or ticks. Other types of insects may be more common in different parts of the country or world. Most people think of allergic reactions when someone has a rash or itchy skin. Symptoms can include: Rash, hives, redness, welts, or blisters Itching, burning, stinging, or pain Swelling around the sting area. Sometimes swelling spreads to other areas. Home care Medicines The healthcare provider may prescribe medicines to relieve swelling, itching, and pain. Follow the provider s instructions when taking these medicines. If you had a severe reaction, the provider may prescribe an epinephrine kit. Epinephrine will stop an allergic reaction from getting worse. Before you leave the hospital, be sure that you understand when and how to use this medicine. Diphenhydramine is an oral antihistamine available at drugstores and groceries. Unless a prescription antihistamine was given, you can use this medicine to reduce itching if large areas of the skin are involved. The medicine may make you sleepy, so be careful using it in the daytime or when going to school, working, or driving. Don t use diphenhydramine if you have glaucoma or if you are a man with trouble urinating because of an enlarged prostate. Other antihistamines cause less drowsiness and are good choices for daytime use. Ask your pharmacist for suggestions. Don t use diphenhydramine cream on your skin. In some people it can cause additional reaction and make you allergic to this medicine. Calamine lotion or oatmeal baths sometimes help with itching. You may use acetaminophen or ibuprofen to control pain, unless another pain medicine was prescribed. Talk with your healthcare provider before using these medicines if you have chronic liver or kidney disease. Also talk with your provider if you ve had a stomach ulcer or GI bleeding. General care If itching is a problem, don t take hot showers or baths. Stay out of direct sunlight. These heat up your skin and will make the itching worse. Use an ice pack to reduce local areas of redness and itching. You can make your own ice pack by putting ice cubes in a bag that seals and wrapping it in a thin towel. Don t put the ice directly on your skin, because it can damage the skin. Try not to scratch any affected areas and damage the skin. This will help prevent an infection. If oral antibiotics were prescribed, be sure to take them until finished. Preventing future reactions Future reactions could be worse than this one, so try to stay away from places where you might be stung again. Be aware that honeybees nest in trees. Wasps and yellow jackets nest in the ground, trees, or roof eaves. If you are stung by a honeybee, a stinger will remain in your skin. Wasps, yellow jackets, and hornets don t leave a stinger behind. Move away from the nest area right away. The stinger of a honeybee releases a substance that will attract other bees to you. Once you are away from the nest, then remove the stinger as quickly as possible. After any sting, you may apply ice and take diphenhydramine or another antihistamine. If you develop any of the warning signs below, seek help right away. If you are at high risk for another sting, or if your reaction included dizziness, fainting, or trouble breathing or swallowing, ask your doctor for an insect allergy kit. Remove any ticks on the skin with a set of fine tweezers. Patient Registration Representative the tick as close to the skin as possible. Pull back gently but firmly. Use an even, steady pressure. Don t jerk or twist. Don t squeeze, crush, or puncture the body of the tick. The bodily fluids may contain infection-causing germs. Don t use a smoldering match or cigarette, nail hungarian, petroleum jelly, liquid soap, or kerosene. These may irritate the tick. If any mouthparts of the tick remain in the skin, these should be left alone. They will fall off on their own. Trying to remove these parts may damage the skin unless they can be removed very easily. After the tick is removed, wash the bite area with rubbing alcohol, iodine, or soap and water. Follow-up care Follow up with your doctor in 2 days, or as advised, if your symptoms don t start to get better. Call 911 Call 911 if any of these occur: Trouble breathing or swallowing, or wheezing New or worsening swelling in the mouth, throat, or tongue Hoarse voice or trouble speaking Confused Very drowsy or trouble awakening Fainting or loss of consciousness Rapid heart rate Low blood pressure Feeling of doom Nausea, vomiting, abdominal pain, or diarrhea Vomiting blood, or large amounts of blood in stool Seizure When to seek medical advice Call your healthcare provider right away if any of these occur: Spreading areas of itching, redness or swelling New or worse swelling in the face, eyelids, or lips Dizziness or weakness Also call your provider right away if you have signs of infection: Spreading redness Increased pain or swelling Fever of 100.4 F (38 C) or higher, or as directed by your healthcare provider Colored fluid draining from the sting area [id number] [employer]. [address] [place] [address]. All rights reserved. This information is not intended as a substitute for professional medical care. Always follow your healthcare professional's instructions. Additional Information VACCINATE! IT SAVES LIVES! Members of the community who have not yet received the COVID-19 vaccine and would like to receive it can visit one of [facility] vaccine clinics. There are many vaccine clinic locations within the [facility]. For locations and available times, please visit [email or web address] It is important to note that some COVID mobile vaccine clinics are held outdoors and may be canceled in rainy or stormy conditions. To learn more about pediatric vaccinations (ages 5-11), we invite you to visit the [facility] webpage. [email or web address]/p [email or web address]-Ligkr-Ypxyqvvxdxd-Freq [email or web address]-Oqwcdqpfr.[email or web address] To learn more about the COVID-19 vaccine, we invite you to visit the CDC website for a list of frequently asked questions. https://www.cdc.gov/coronavirus/ 2019-ncov/vaccines/faq.html [facility] Patient Portal Access Instructions: Stay connected with your healthcare team and access your personal medical information anytime with the [facility] Patient Portal. If you would like a full copy of your medical records please contact the [facility] Medical Records Department Thursday through Thursday between 8a.m. and 4:30p.m. Please follow the directions below to access the portal: 1.Access the email account you provided upon registration to the hospital.2.Look for an invitation email from [facility].3.Open the email and access the invitation link: Accept Invitation to [facility].Fill in the required bacon to create your account. Sign into [email or web address] with your username and password that you created in the above steps to stay up to date. You can then view a summary of results, a summary of your visits, and the ability to download your summaries to your computer or send the information securely to a physician. Remember that your healthcare information is confidential, so carefully consider who you will allow to register on the [facility] Patient Portal for access to your information. You can also access the [facility] Patient Portal on the [employer] rick. Simply click on Health Records under Health Data and then click on the [employer] logo. HOW TO SAFELY DISPOSE OF PRESCRIPTION MEDICATIONS Please use one of the following methods to safely dispose of your unused medications. 1.Use a drug disposal kit: the drug disposal pouch allows you to safely discard your old and unused drugs. Ask your nurse to give you one when you are discharged.2.Visit a local take-back location: Many local pharmacies and police departments have programs that collect old and unwanted prescription drugs. Call your local pharmacy or go to http://Medius.FreshRealm/7T5Tx5b to find one close to you.3.Make use of household items: Use cat litter or old coffee grounds to dispose medications if other options are not available. Mix your drugs with these household products, seal them in an airtight container and throw it into the garbage. Call [facility]: [phone] to be sure your drugs can be disposed of in this way. Some medicines may require a different approach.4.Never flush your medications down the toilet. IF YOU HAVE BEEN PRESCRIBED AN OPIOIDS FOR PAIN If you have been prescribed an opioid (such as hydrocodone, oxycodone or morphine), it is critical to understand the possible side effects and risks of opioid pain medications. Even when taken as directed, opioids can have several side effects including: Tolerance, meaning you might need to take more of a medication for the same pain relief. Nausea, vomiting and/or constipation. Sleepiness, dizziness, dry mouth, confusion, depression or itching. Physical dependence, meaning you have withdrawal symptoms when a medication is stopped ? this can develop within a few days. KNOW YOUR RESPONSIBILITIES It is important to know exactly how much and how often to take the opioid pain medications you are prescribed. Never take opioids in higher amounts or more often than prescribed. Do not combine opioids with alcohol or other drugs that cause drowsiness, such as benzodiazepines, also known as benzos, including diazepam and alprazolam, muscle relaxants or sleep aids. Never sell or share prescription opioids. This is illegal. Store opioids in a secure place and out of reach of others (including children, family, friends and visitors). The last page(s) of this document has been signed and retained as a CHART COPY Signatures Patient Education Materials Insect Sting, Local Reaction Medication Leaflets cephalexin, cephalexin My discharge plan and instructions have been reviewed and explained to me and I,MEGHAN ODONNELL understand my current condition and have read and understand these discharge instructions. I have received a written copy of the plan/instructions. If I have questions, I am aware that I should contact my doctor. Patient/Daytime Babysitter Signature: Date/Time: Relationship to Patient: Witness Name/Signature: Date/Time: [facility] 10-07-2021 Hospital Discharge instructions Patient Education 10/07/2021 17:04:55 LACERATION, All Laceration (All Closures) A laceration is a cut through the skin. This will usually require stitches (sutures) or get if it is deep. Minor cuts may be treated with a surgical tape closure or skin glue. Home care The following guidelines will help you care for your laceration at home: Extremity, face, or trunk wounds Keep the wound clean and dry. If a bandage was applied and it becomes wet or dirty, replace it. Otherwise, leave it in place for the first 24 hours. If stitches or get were used, clean the wound daily. After removing the bandage, wash the area with soap and water. Use a wet cotton swab to loosen and remove any blood or crust that forms. The doctor may prescribe an antibiotic cream or ointment to prevent infection. Do not stop taking this medication until you have finished the prescribed course or the doctor tells you to stop. The doctor may also prescribe medications for pain. Follow the doctor s instructions for taking these medications. You may remove the bandage to shower as usual after the first 24 hours, but do not soak the area in water (no swimming) until the stitches or get are removed. If surgical tape was used, keep the area clean and dry. If it becomes wet, blot it dry with a towel. If skin glue was used, do not scratch, rub, or pick at the adhesive film. Do not place tape directly over the film. Do not apply liquid, ointment, or creams to the wound while the film is in place. Do not clean the wound with peroxide and do not apply ointments. Avoid activities that cause heavy sweating until the film has fallen off. Protect the wound from prolonged exposure to sunlight or tanning lamps. You may shower as usual but do not soak the wound in water (no baths or swimming). The film will fall off by itself in 5 10 days. Scalp wounds During the first two days, you may carefully rinse your hair in the shower to remove blood, glass or dirt particles. After two days, you may shower and shampoo your hair normally. Do not soak your scalp in the tub or go swimming until the stitches or get have been removed. Talk with your doctor before applying any antibiotic ointment to the wound. Mouth wounds Eat soft foods to reduce pain. If the cut is inside of your mouth, clean by rinsing after each meal and at bedtime with a mixture of equal parts water and hydrogen peroxide (do not swallow!). Or, you can use a cotton swab to directly apply hydrogen peroxide onto the cut. Mouth wounds can be painful when eating. You may use an cxay-our-mndisea local numbing solution for pain relief. If this is not available, you may use any numbing solution for teething babies. You may apply this directly to the sores with a cotton-tip swab or with your finger. Follow-up care Follow up with your health care provider. Most skin wounds heal within ten days. Mouth and facial wounds heal within five days. However, even with proper treatment, a wound infection may sometimes occur. Therefore, you should check the wound daily for signs of infection listed below. Stitches should be removed from the face within five days; stitches and get should be removed from other parts of the body within 7 14 days. If dissolving stitches were used in the mouth, these will fall out or dissolve without the need for removal. If tape closures were used, remove them yourself if they have not fallen off after 7 days. If skin glue was used, the film will fall off by itself in 5 10 days. When to seek medical advice Call your health care provider right away if any of these occur: Bleeding not controlled by direct pressure Signs of infection, including increasing pain in the wound, increasing wound redness or swelling, or pus coming from the wound Fever of 100.4 F (38 C) or higher, or as directed by your health care provider Stitches or get come apart or fall out or surgical tape falls off before 7 days Wound edges re-open [id number] [employer]. [address] [place] [address]. All rights reserved. This information is not intended as a substitute for professional medical care. Always follow your healthcare professional's instructions. Follow Up Care 10/07/2021 16:37:38 With:MIRANDA LAMA DO Address: [address] [place] [address] [address] [place] [address]- When: Unknown Comments:Follow-up in 7 days for suture removal. [facility] Evaluation + Plan note No data available for this section [facility] Evaluation note No assessment inform ation available [facility] Work Phone: Instructions Name Patient Instructions Indication:Non-smoker Start: 1 Instruction Type:Provider Instructions for Treatment How to Access Health Information Online using Patient Portal and [employer]rd [employer] Apps Indication:Non-smoker Start: 1 Instruction Type:Patient Education Patient Instructions Indication:BMI 30.0-30.9,adult Start: Instruction Type:Provider Instructions for Treatment How to Access Health Information Online using Patient Portal and [employer]rd [employer] Apps Indication:BMI 30.0-30.9,adult Start: 1 Instruction Type:Patient Education How to access health information online Indication:Non-smoker Start:16-May-2020 Instruction Type:Patient Education How to access health information online - Detail Indication:Non-smoker Start:16-May-2020 Instruction Type:Patient Education Patient Instructions Indication:Non-smoker Start:16-May-2020 Instruction Type:Provider Instructions for Treatment How to access health information online Indication:Non-smoker Start: 0 Instruction Type:Patient Education How to access health information online - Detail Indication:Non-smoker Start: 0 Instruction Type:Patient Education Patient Instructions Indication:Non-smoker Start: 0 Instruction Type:Provider Instructions for Treatment How to access health information online Indication:Hypertension, benign Start:18-Apr-2019 Instruction Type:Patient Education How to access health information online - Detail Indication:Hypertension, benign Start:18-Apr-2019 Instruction Type:Patient Education Patient Instructions Indication:Hypertension, benign Start:18-Apr-2019 Instruction Type:Provider Instructions for Treatment obesity counseling Indication:Hypertension, benign Start:20-May-2018 Instruction Type:Provider Instructions for Treatment How to access health information online Indication:Non-smoker Start:20-May-2018 Instruction Type:Patient Education How to access health information online - Detail Indication:Non-smoker Start:20-May-2018 Instruction Type:Patient Education Patient Instructions Indication:Non-smoker Start:20-May-2018 Instruction Type:Provider Instructions for Treatment How to access health information online Indication:Non-smoker Start: 8 Instruction Type:Patient Education How to access health information online - Detail Indication:Non-smoker Start: 8 Instruction Type:Patient Education Patient Instructions Indication:Non-smoker Start: 8 Instruction Type:Provider Instructions for Treatment How to access health information online Indication:BMI 29.0-29.9,adult Start:15-Jun-2017 Instruction Type:Patient Education How to access health information online - Detail Indication:BMI 29.0-29.9,adult Start:15-Jun-2017 Instruction Type:Patient Education Patient Instructions Indication:BMI 29.0-29.9,adult Start:15-Jun-2017 Instruction Type:Provider Instructions for Treatment How to access health information online Indication:Dizzy spells Start: 7 Instruction Type:Patient Education How to access health information online - Detail Indication:Dizzy spells Start: 7 Instruction Type:Patient Education Patient Instructions Indication:Dizzy spells Start: 7 Instruction Type:Provider Instructions for Treatment How to access health information online Indication:Non-smoker Start:18-Aug-2016 Instruction Type:Patient Education Patient Instructions Indication:Non-smoker Start:18-Aug-2016 Instruction Type:Provider Instructions for Treatment How to access health information online Indication:Varicose vein Start: 6 Instruction Type:Patient Education How to access health information online - Detail Indication:Varicose vein Start: 6 Instruction Type:Patient Education Patient Instructions Indication:Varicose vein Start: 6 Instruction Type:Provider Instructions for Treatment Patient Instructions Indication:Leg swelling Start: 5 Instruction Type:Provider Instructions for Treatment [facility] Work Phone: Instructions* Name Dates Details Patient Instructions Indication:Non-smoker Start:27-May-2021 Instruction Type:Provider Instructions for Treatment How to Access Health Informa tion Online using Patient Portal and [employer]rd [employer] Apps Indication:Non-smoker Start:27-May-2021 Instruction Type:Patient Education Patient Instructions Indication:BMI 30.0-30.9,adult Start:08-May-2021 Instruction Type:Provider Instructions for Treatment How to Access Health Informa tion Online using Patient Portal and [employer]rd [employer] Apps Indication:BMI 30.0-30.9,adult Start:08-May-2021 Instruction Type:Patient Education How to access health informa tion online Indication:Non-smoker Start:16-May-2020 Instruction Type:Patient Education How to access health informa tion online - Detail Indication:Non-smoker Start:16-May-2020 Instruction Type:Patient Education Patient Instructions Indication:Non-smoker Start:16-May-2020 Instruction Type:Provider Instructions for Treatment How to access health informa tion online Indication:Non-smoker Start:08-Dec-2019 Instruction Type:Patient Education How to access health informa tion online - Detail Indication:Non-smoker Start:08-Dec-2019 Instruction Type:Patient Education Patient Instructions Indication:Non-smoker Start:08-Dec-2019 Instruction Type:Provider Instructions for Treatment How to access health informa tion online Indication:Hypertension, benign Start:18-Apr-2019 Instruction Type:Patient Education How to access health informa tion online - Detail Indication:Hypertension, benign Start:18-Apr-2019 Instruction Type:Patient Education Patient Instructions Indication:Hypertension, benign Start:18-Apr-2019 Instruction Type:Provider Instructions for Treatment obesity counseling Indication:Hypertension, benign Start:20-May-2018 Instruction Type:Provider Instructions for Treatment How to access health informa tion online Indication:Non-smoker Start:20-May-2018 Instruction Type:Patient Education How to access health informa tion online - Detail Indication:Non-smoker Start:20-May-2018 Instruction Type:Patient Education Patient Instructions Indication:Non-smoker Start:20-May-2018 Instruction Type:Provider Instructions for Treatment How to access health informa tion online Indication:Non-smoker Start:05-May-2018 Instruction Type:Patient Education How to access health informa tion online - Detail Indication:Non-smoker Start:05-May-2018 Instruction Type:Patient Education Patient Instructions Indication:Non-smoker Start:05-May-2018 Instruction Type:Provider Instructions for Treatment How to access health informa tion online Indication:BMI 29.0-29.9,adult Start:15-Jun-2017 Instruction Type:Patient Education How to access health informa tion online - Detail Indication:BMI 29.0-29.9,adult Start:15-Jun-2017 Instruction Type:Patient Education Patient Instructions Indication:BMI 29.0-29.9,adult Start:15-Jun-2017 Instruction Type:Provider Instructions for Treatment How to access health informa tion online Indication:Dizzy spells Start:09-Feb-2017 Instruction Type:Patient Education How to access health informa tion online - Detail Indication:Dizzy spells Start:09-Feb-2017 Instruction Type:Patient Education Patient Instructions Indication:Dizzy spells Start:09-Feb-2017 Instruction Type:Provider Instructions for Treatment How to access health informa tion online Indication:Non-smoker Start:18-Aug-2016 Instruction Type:Patient Education Patient Instructions Indication:Non-smoker Start:18-Aug-2016 Instruction Type:Provider Instructions for Treatment How to access health informa tion online Indication:Varicose vein Start:23-Jul-2015 Instruction Type:Patient Education How to access health informa tion online - Detail Indication:Varicose vein Start:23-Jul-2015 Instruction Type:Patient Education Patient Instructions Indication:Varicose vein Start:23-Jul-2015 Instruction Type:Provider Instructions for Treatment Patient Instructions Indication:Leg swelling Start:23-Aug-2014 Instruction Type:Provider Instructions for Treatment [facility]; [facility] Work Phone: Instructions* Name Dates Details Patient Instructions Indication:BMI 30.0-30.9,adult Start:22-Oct-2022 Instruction Type:Provider Instructions for Treatment How to Access Health Informa tion Online using Patient Portal and [employer]rd [employer] Apps Indication:BMI 30.0-30.9,adult Start:22-Oct-2022 Instruction Type:Patient Education Patient Instructions Indication:Non-smoker Start:27-May-2021 Instruction Type:Provider Instructions for Treatment How to Access Health Informa tion Online using Patient Portal and [employer]rd [employer] Apps Indication:Non-smoker Start:27-May-2021 Instruction Type:Patient Education Patient Instructions Indication:BMI 30.0-30.9,adult Start:08-May-2021 Instruction Type:Provider Instructions for Treatment How to Access Health Informa tion Online using Patient Portal and [employer]rd [employer] Apps Indication:BMI 30.0-30.9,adult Start:08-May-2021 Instruction Type:Patient Education How to access health informa tion online Indication:Non-smoker Start:16-May-2020 Instruction Type:Patient Education How to access health informa tion online - Detail Indication:Non-smoker Start:16-May-2020 Instruction Type:Patient Education Patient Instructions Indication:Non-smoker Start:16-May-2020 Instruction Type:Provider Instructions for Treatment How to access health informa tion online Indication:Non-smoker Start:08-Dec-2019 Instruction Type:Patient Education How to access health informa tion online - Detail Indication:Non-smoker Start:08-Dec-2019 Instruction Type:Patient Education Patient Instructions Indication:Non-smoker Start:08-Dec-2019 Instruction Type:Provider Instructions for Treatment How to access health informa tion online Indication:Hypertension, benign Start:18-Apr-2019 Instruction Type:Patient Education How to access health informa tion online - Detail Indication:Hypertension, benign Start:18-Apr-2019 Instruction Type:Patient Education Patient Instructions Indication:Hypertension, benign Start:18-Apr-2019 Instruction Type:Provider Instructions for Treatment obesity counseling Indication:Hypertension, benign Start:20-May-2018 Instruction Type:Provider Instructions for Treatment How to access health informa tion online Indication:Non-smoker Start:20-May-2018 Instruction Type:Patient Education How to access health informa tion online - Detail Indication:Non-smoker Start:20-May-2018 Instruction Type:Patient Education Patient Instructions Indication:Non-smoker Start:20-May-2018 Instruction Type:Provider Instructions for Treatment How to access health informa tion online Indication:Non-smoker Start:05-May-2018 Instruction Type:Patient Education How to access health informa tion online - Detail Indication:Non-smoker Start:05-May-2018 Instruction Type:Patient Education Patient Instructions Indication:Non-smoker Start:05-May-2018 Instruction Type:Provider Instructions for Treatment How to access health informa tion online Indication:BMI 29.0-29.9,adult Start:15-Jun-2017 Instruction Type:Patient Education How to access health informa tion online - Detail Indication:BMI 29.0-29.9,adult Start:15-Jun-2017 Instruction Type:Patient Education Patient Instructions Indication:BMI 29.0-29.9,adult Start:15-Jun-2017 Instruction Type:Provider Instructions for Treatment How to access health informa tion online Indication:Dizzy spells Start:09-Feb-2017 Instruction Type:Patient Education How to access health informa tion online - Detail Indication:Dizzy spells Start:09-Feb-2017 Instruction Type:Patient Education Patient Instructions Indication:Dizzy spells Start:09-Feb-2017 Instruction Type:Provider Instructions for Treatment How to access health informa tion online Indication:Non-smoker Start:18-Aug-2016 Instruction Type:Patient Education Patient Instructions Indication:Non-smoker Start:18-Aug-2016 Instruction Type:Provider Instructions for Treatment How to access health informa tion online Indication:Varicose vein Start:23-Jul-2015 Instruction Type:Patient Education How to access health informa tion online - Detail Indication:Varicose vein Start:23-Jul-2015 Instruction Type:Patient Education Patient Instructions Indication:Varicose vein Start:23-Jul-2015 Instruction Type:Provider Instructions for Treatment Patient Instructions Indication:Leg swelling Start:23-Aug-2014 Instruction Type:Provider Instructions for Treatment [facility]; [facility] Work Phone: Instructions* Name Dates Details Patient Instructions Indication:Non-smoker Start:17-Nov-2022 Instruction Type:Provider Instructions for Treatment How to Access Health Informa tion Online using Patient Portal and [employer]rd [employer] Apps Indication:Non-smoker Start:17-Nov-2022 Instruction Type:Patient Education Patient Instructions Indication:BMI 30.0-30.9,adult Start:22-Oct-2022 Instruction Type:Provider Instructions for Treatment How to Access Health Informa tion Online using Patient Portal and [employer]rd [employer] Apps Indication:BMI 30.0-30.9,adult Start:22-Oct-2022 Instruction Type:Patient Education Patient Instructions Indication:Non-smoker Start:27-May-2021 Instruction Type:Provider Instructions for Treatment How to Access Health Informa tion Online using Patient Portal and [employer]rd [employer] Apps Indication:Non-smoker Start:27-May-2021 Instruction Type:Patient Education Patient Instructions Indication:BMI 30.0-30.9,adult Start:08-May-2021 Instruction Type:Provider Instructions for Treatment How to Access Health Informa tion Online using Patient Portal and [employer]rd [employer] Apps Indication:BMI 30.0-30.9,adult Start:08-May-2021 Instruction Type:Patient Education How to access health informa tion online Indication:Non-smoker Start:16-May-2020 Instruction Type:Patient Education How to access health informa tion online - Detail Indication:Non-smoker Start:16-May-2020 Instruction Type:Patient Education Patient Instructions Indication:Non-smoker Start:16-May-2020 Instruction Type:Provider Instructions for Treatment How to access health informa tion online Indication:Non-smoker Start:08-Dec-2019 Instruction Type:Patient Education How to access health informa tion online - Detail Indication:Non-smoker Start:08-Dec-2019 Instruction Type:Patient Education Patient Instructions Indication:Non-smoker Start:08-Dec-2019 Instruction Type:Provider Instructions for Treatment How to access health informa tion online Indication:Hypertension, benign Start:18-Apr-2019 Instruction Type:Patient Education How to access health informa tion online - Detail Indication:Hypertension, benign Start:18-Apr-2019 Instruction Type:Patient Education Patient Instructions Indication:Hypertension, benign Start:18-Apr-2019 Instruction Type:Provider Instructions for Treatment obesity counseling Indication:Hypertension, benign Start:20-May-2018 Instruction Type:Provider Instructions for Treatment How to access health informa tion online Indication:Non-smoker Start:20-May-2018 Instruction Type:Patient Education How to access health informa tion online - Detail Indication:Non-smoker Start:20-May-2018 Instruction Type:Patient Education Patient Instructions Indication:Non-smoker Start:20-May-2018 Instruction Type:Provider Instructions for Treatment How to access health informa tion online Indication:Non-smoker Start:05-May-2018 Instruction Type:Patient Education How to access health informa tion online - Detail Indication:Non-smoker Start:05-May-2018 Instruction Type:Patient Education Patient Instructions Indication:Non-smoker Start:05-May-2018 Instruction Type:Provider Instructions for Treatment How to access health informa tion online Indication:BMI 29.0-29.9,adult Start:15-Jun-2017 Instruction Type:Patient Education How to access health informa tion online - Detail Indication:BMI 29.0-29.9,adult Start:15-Jun-2017 Instruction Type:Patient Education Patient Instructions Indication:BMI 29.0-29.9,adult Start:15-Jun-2017 Instruction Type:Provider Instructions for Treatment How to access health informa tion online Indication:Dizzy spells Start:09-Feb-2017 Instruction Type:Patient Education How to access health informa tion online - Detail Indication:Dizzy spells Start:09-Feb-2017 Instruction Type:Patient Education Patient Instructions Indication:Dizzy spells Start:09-Feb-2017 Instruction Type:Provider Instructions for Treatment How to access health informa tion online Indication:Non-smoker Start:18-Aug-2016 Instruction Type:Patient Education Patient Instructions Indication:Non-smoker Start:18-Aug-2016 Instruction Type:Provider Instructions for Treatment How to access health informa tion online Indication:Varicose vein Start:23-Jul-2015 Instruction Type:Patient Education How to access health informa tion online - Detail Indication:Varicose vein Start:23-Jul-2015 Instruction Type:Patient Education Patient Instructions Indication:Varicose vein Start:23-Jul-2015 Instruction Type:Provider Instructions for Treatment Patient Instructions Indication:Leg swelling Start:23-Aug-2014 Instruction Type:Provider Instructions for Treatment [facility]; [facility] Work Phone: Instructions* Name Dates Details Patient Instructions Indication:Non-smoker Start:17-Nov-2022 Instruction Type:Provider Instructions for Treatment How to Access Health Informa tion Online using Patient Portal and [employer]rd [employer] Apps Indication:Non-smoker Start:17-Nov-2022 Instruction Type:Patient Education Patient Instructions Indication:BMI 30.0-30.9,adult Start:22-Oct-2022 Instruction Type:Provider Instructions for Treatment How to Access Health Informa tion Online using Patient Portal and [employer]rd [employer] Apps Indication:BMI 30.0-30.9,adult Start:22-Oct-2022 Instruction Type:Patient Education Patient Instructions Indication:Non-smoker Start:27-May-2021 Instruction Type:Provider Instructions for Treatment How to Access Health Informa tion Online using Patient Portal and [employer]rd [employer] Apps Indication:Non-smoker Start:27-May-2021 Instruction Type:Patient Education Patient Instructions Indication:BMI 30.0-30.9,adult Start:08-May-2021 Instruction Type:Provider Instructions for Treatment How to Access Health Informa tion Online using Patient Portal and [employer]rd [employer] Apps Indication:BMI 30.0-30.9,adult Start:08-May-2021 Instruction Type:Patient Education How to access health informa tion online Indication:Non-smoker Start:16-May-2020 Instruction Type:Patient Education How to access health informa tion online - Detail Indication:Non-smoker Start:16-May-2020 Instruction Type:Patient Education Patient Instructions Indication:Non-smoker Start:16-May-2020 Instruction Type:Provider Instructions for Treatment How to access health informa tion online Indication:Non-smoker Start:08-Dec-2019 Instruction Type:Patient Education How to access health informa tion online - Detail Indication:Non-smoker Start:08-Dec-2019 Instruction Type:Patient Education Patient Instructions Indication:Non-smoker Start:08-Dec-2019 Instruction Type:Provider Instructions for Treatment How to access health informa tion online Indication:Hypertension, benign Start:18-Apr-2019 Instruction Type:Patient Education How to access health informa tion online - Detail Indication:Hypertension, benign Start:18-Apr-2019 Instruction Type:Patient Education Patient Instructions Indication:Hypertension, benign Start:18-Apr-2019 Instruction Type:Provider Instructions for Treatment obesity counseling Indication:Hypertension, benign Start:20-May-2018 Instruction Type:Provider Instructions for Treatment How to access health informa tion online Indication:Non-smoker Start:20-May-2018 Instruction Type:Patient Education How to access health informa tion online - Detail Indication:Non-smoker Start:20-May-2018 Instruction Type:Patient Education Patient Instructions Indication:Non-smoker Start:20-May-2018 Instruction Type:Provider Instructions for Treatment How to access health informa tion online Indication:Non-smoker Start:05-May-2018 Instruction Type:Patient Education How to access health informa tion online - Detail Indication:Non-smoker Start:05-May-2018 Instruction Type:Patient Education Patient Instructions Indication:Non-smoker Start:05-May-2018 Instruction Type:Provider Instructions for Treatment How to access health informa tion online Indication:BMI 29.0-29.9,adult Start:15-Jun-2017 Instruction Type:Patient Education How to access health informa tion online - Detail Indication:BMI 29.0-29.9,adult Start:15-Jun-2017 Instruction Type:Patient Education Patient Instructions Indication:BMI 29.0-29.9,adult Start:15-Jun-2017 Instruction Type:Provider Instructions for Treatment How to access health informa tion online Indication:Dizzy spells Start:09-Feb-2017 Instruction Type:Patient Education How to access health informa tion online - Detail Indication:Dizzy spells Start:09-Feb-2017 Instruction Type:Patient Education Patient Instructions Indication:Dizzy spells Start:09-Feb-2017 Instruction Type:Provider Instructions for Treatment How to access health informa tion online Indication:Non-smoker Start:18-Aug-2016 Instruction Type:Patient Education Patient Instructions Indication:Non-smoker Start:18-Aug-2016 Instruction Type:Provider Instructions for Treatment How to access health informa tion online Indication:Varicose vein Start:23-Jul-2015 Instruction Type:Patient Education How to access health informa tion online - Detail Indication:Varicose vein Start:23-Jul-2015 Instruction Type:Patient Education Patient Instructions Indication:Varicose vein Start:23-Jul-2015 Instruction Type:Provider Instructions for Treatment Patient Instructions Indication:Leg swelling Start:23-Aug-2014 Instruction Type:Provider Instructions for Treatment [facility]; [facility] Work Phone: reason for referral (narrative)No reason for referral information [facility]: Instructions Name Dates Details Non-smoker : How to access h ealth information online Indication:Non-smoker Non-smoker : How to access h ealth information online - Detail Indication:Non-smoker Non-smoker : Patient Instruc tions Indication:Non-smoker BMI 29.0-29.9,adult : How to access health information online Indication:BMI 29.0-29.9,adult BMI 29.0-29.9,adult : How to access health information online - Detail Indication:BMI 29.0-29.9,adult BMI 29.0-29.9,adult : Patien t Instructions Indication:BMI 29.0-29.9,adult Dizzy spells : How to access health information online Indication:Dizzy spells Dizzy spells : How to access health information online - Detail Indication:Dizzy spells Dizzy spells : Patient Instr uctions Indication:Dizzy spells Varicose vein : How to acces s health information online Indication:Varicose vein Varicose vein : How to acces s health information online - Detail Indication:Varicose vein Varicose vein : Patient Inst ructions Indication:Varicose vein Leg swelling : Patient Instr uctions Indication:Leg swelling Name Dates Details Hypertension, benign : obesi ty counseling Indication:Hypertension, benign Non-smoker : How to access h ealth information online Indication:Non-smoker Non-smoker : How to access h ealth information online - Detail Indication:Non-smoker Non-smoker : Patient Instruc tions Indication:Non-smoker BMI 29.0-29.9,adult : How to access health information online Indication:BMI 29.0-29.9,adult BMI 29.0-29.9,adult : How to access health information online - Detail Indication:BMI 29.0-29.9,adult BMI 29.0-29.9,adult : Patien t Instructions Indication:BMI 29.0-29.9,adult Dizzy spells : How to access health information online Indication:Dizzy spells Dizzy spells : How to access health information online - Detail Indication:Dizzy spells Dizzy spells : Patient Instr uctions Indication:Dizzy spells Varicose vein : How to acces s health information online Indication:Varicose vein Varicose vein : How to acces s health information online - Detail Indication:Varicose vein Varicose vein : Patient Inst ructions Indication:Varicose vein Leg swelling : Patient Instr uctions Indication:Leg swelling Name Dates Details How to access health informa tion online Indication:Hypertension, benign Start:18-Apr-2019 Instruction Type:Patient Education How to access health informa tion online - Detail Indication:Hypertension, benign Start:18-Apr-2019 Instruction Type:Patient Education Patient Instructions Indication:Hypertension, benign Start:18-Apr-2019 Instruction Type:Provider Instructions for Treatment obesity counseling Indication:Hypertension, benign Start:20-May-2018 Instruction Type:Provider Instructions for Treatment How to access health informa tion online Indication:Non-smoker Start:20-May-2018 Instruction Type:Patient Education How to access health informa tion online - Detail Indication:Non-smoker Start:20-May-2018 Instruction Type:Patient Education Patient Instructions Indication:Non-smoker Start:20-May-2018 Instruction Type:Provider Instructions for Treatment How to access health informa tion online Indication:Non-smoker Start:05-May-2018 Instruction Type:Patient Education How to access health informa tion online - Detail Indication:Non-smoker Start:05-May-2018 Instruction Type:Patient Education Patient Instructions Indication:Non-smoker Start:05-May-2018 Instruction Type:Provider Instructions for Treatment How to access health informa tion online Indication:BMI 29.0-29.9,adult Start:15-Jun-2017 Instruction Type:Patient Education How to access health informa tion online - Detail Indication:BMI 29.0-29.9,adult Start:15-Jun-2017 Instruction Type:Patient Education Patient Instructions Indication:BMI 29.0-29.9,adult Start:15-Jun-2017 Instruction Type:Provider Instructions for Treatment How to access health informa tion online Indication:Dizzy spells Start:09-Feb-2017 Instruction Type:Patient Education How to access health informa tion online - Detail Indication:Dizzy spells Start:09-Feb-2017 Instruction Type:Patient Education Patient Instructions Indication:Dizzy spells Start:09-Feb-2017 Instruction Type:Provider Instructions for Treatment How to access health informa tion online Indication:Non-smoker Start:18-Aug-2016 Instruction Type:Patient Education Patient Instructions Indication:Non-smoker Start:18-Aug-2016 Instruction Type:Provider Instructions for Treatment How to access health informa tion online Indication:Varicose vein Start:23-Jul-2015 Instruction Type:Patient Education How to access health informa tion online - Detail Indication:Varicose vein Start:23-Jul-2015 Instruction Type:Patient Education Patient Instructions Indication:Varicose vein Start:23-Jul-2015 Instruction Type:Provider Instructions for Treatment Patient Instructions Indication:Leg swelling Start:23-Aug-2014 Instruction Type:Provider Instructions for Treatment Name Dates Details How to access health informa tion online Indication:Hypertension, benign Start:18-Apr-2019 Instruction Type:Patient Education How to access health informa tion online - Detail Indication:Hypertension, benign Start:18-Apr-2019 Instruction Type:Patient Education Patient Instructions Indication:Hypertension, benign Start:18-Apr-2019 Instruction Type:Provider Instructions for Treatment obesity counseling Indication:Hypertension, benign Start:20-May-2018 Instruction Type:Provider Instructions for Treatment How to access health informa tion online Indication:Non-smoker Start:20-May-2018 Instruction Type:Patient Education How to access health informa tion online - Detail Indication:Non-smoker Start:20-May-2018 Instruction Type:Patient Education Patient Instructions Indication:Non-smoker Start:20-May-2018 Instruction Type:Provider Instructions for Treatment How to access health informa tion online Indication:Non-smoker Start:05-May-2018 Instruction Type:Patient Education How to access health informa tion online - Detail Indication:Non-smoker Start:05-May-2018 Instruction Type:Patient Education Patient Instructions Indication:Non-smoker Start:05-May-2018 Instruction Type:Provider Instructions for Treatment How to access health informa tion online Indication:BMI 29.0-29.9,adult Start:15-Jun-2017 Instruction Type:Patient Education How to access health informa tion online - Detail Indication:BMI 29.0-29.9,adult Start:15-Jun-2017 Instruction Type:Patient Education Patient Instructions Indication:BMI 29.0-29.9,adult Start:15-Jun-2017 Instruction Type:Provider Instructions for Treatment How to access health informa tion online Indication:Dizzy spells Start:09-Feb-2017 Instruction Type:Patient Education How to access health informa tion online - Detail Indication:Dizzy spells Start:09-Feb-2017 Instruction Type:Patient Education Patient Instructions Indication:Dizzy spells Start:09-Feb-2017 Instruction Type:Provider Instructions for Treatment How to access health informa tion online Indication:Non-smoker Start:18-Aug-2016 Instruction Type:Patient Education Patient Instructions Indication:Non-smoker Start:18-Aug-2016 Instruction Type:Provider Instructions for Treatment How to access health informa tion online Indication:Varicose vein Start:23-Jul-2015 Instruction Type:Patient Education How to access health informa tion online - Detail Indication:Varicose vein Start:23-Jul-2015 Instruction Type:Patient Education Patient Instructions Indication:Varicose vein Start:23-Jul-2015 Instruction Type:Provider Instructions for Treatment Patient Instructions Indication:Leg swelling Start:23-Aug-2014 Instruction Type:Provider Instructions for Treatment Name Dates Details How to access health informa tion online Indication:Non-smoker Start:16-May-2020 Instruction Type:Patient Education How to access health informa tion online - Detail Indication:Non-smoker Start:16-May-2020 Instruction Type:Patient Education Patient Instructions Indication:Non-smoker Start:16-May-2020 Instruction Type:Provider Instructions for Treatment How to access health informa tion online Indication:Non-smoker Start:08-Dec-2019 Instruction Type:Patient Education How to access health informa tion online - Detail Indication:Non-smoker Start:08-Dec-2019 Instruction Type:Patient Education Patient Instructions Indication:Non-smoker Start:08-Dec-2019 Instruction Type:Provider Instructions for Treatment How to access health informa tion online Indication:Hypertension, benign Start:18-Apr-2019 Instruction Type:Patient Education How to access health informa tion online - Detail Indication:Hypertension, benign Start:18-Apr-2019 Instruction Type:Patient Education Patient Instructions Indication:Hypertension, benign Start:18-Apr-2019 Instruction Type:Provider Instructions for Treatment obesity counseling Indication:Hypertension, benign Start:20-May-2018 Instruction Type:Provider Instructions for Treatment How to access health informa tion online Indication:Non-smoker Start:20-May-2018 Instruction Type:Patient Education How to access health informa tion online - Detail Indication:Non-smoker Start:20-May-2018 Instruction Type:Patient Education Patient Instructions Indication:Non-smoker Start:20-May-2018 Instruction Type:Provider Instructions for Treatment How to access health informa tion online Indication:Non-smoker Start:05-May-2018 Instruction Type:Patient Education How to access health informa tion online - Detail Indication:Non-smoker Start:05-May-2018 Instruction Type:Patient Education Patient Instructions Indication:Non-smoker Start:05-May-2018 Instruction Type:Provider Instructions for Treatment How to access health informa tion online Indication:BMI 29.0-29.9,adult Start:15-Jun-2017 Instruction Type:Patient Education How to access health informa tion online - Detail Indication:BMI 29.0-29.9,adult Start:15-Jun-2017 Instruction Type:Patient Education Patient Instructions Indication:BMI 29.0-29.9,adult Start:15-Jun-2017 Instruction Type:Provider Instructions for Treatment How to access health informa tion online Indication:Dizzy spells Start:09-Feb-2017 Instruction Type:Patient Education How to access health informa tion online - Detail Indication:Dizzy spells Start:09-Feb-2017 Instruction Type:Patient Education Patient Instructions Indication:Dizzy spells Start:09-Feb-2017 Instruction Type:Provider Instructions for Treatment How to access health informa tion online Indication:Non-smoker Start:18-Aug-2016 Instruction Type:Patient Education Patient Instructions Indication:Non-smoker Start:18-Aug-2016 Instruction Type:Provider Instructions for Treatment How to access health informa tion online Indication:Varicose vein Start:23-Jul-2015 Instruction Type:Patient Education How to access health informa tion online - Detail Indication:Varicose vein Start:23-Jul-2015 Instruction Type:Patient Education Patient Instructions Indication:Varicose vein Start:23-Jul-2015 Instruction Type:Provider Instructions for Treatment Patient Instructions Indication:Leg swelling Start:23-Aug-2014 Instruction Type:Provider Instructions for Treatment Name Dates Details How to access health informa tion online Indication:Non-smoker Start:16-May-2020 Instruction Type:Patient Education How to access health informa tion online - Detail Indication:Non-smoker Start:16-May-2020 Instruction Type:Patient Education Patient Instructions Indication:Non-smoker Start:16-May-2020 Instruction Type:Provider Instructions for Treatment How to access health informa tion online Indication:Non-smoker Start:08-Dec-2019 Instruction Type:Patient Education How to access health informa tion online - Detail Indication:Non-smoker Start:08-Dec-2019 Instruction Type:Patient Education Patient Instructions Indication:Non-smoker Start:08-Dec-2019 Instruction Type:Provider Instructions for Treatment How to access health informa tion online Indication:Hypertension, benign Start:18-Apr-2019 Instruction Type:Patient Education How to access health informa tion online - Detail Indication:Hypertension, benign Start:18-Apr-2019 Instruction Type:Patient Education Patient Instructions Indication:Hypertension, benign Start:18-Apr-2019 Instruction Type:Provider Instructions for Treatment obesity counseling Indication:Hypertension, benign Start:20-May-2018 Instruction Type:Provider Instructions for Treatment How to access health informa tion online Indication:Non-smoker Start:20-May-2018 Instruction Type:Patient Education How to access health informa tion online - Detail Indication:Non-smoker Start:20-May-2018 Instruction Type:Patient Education Patient Instructions Indication:Non-smoker Start:20-May-2018 Instruction Type:Provider Instructions for Treatment How to access health informa tion online Indication:Non-smoker Start:05-May-2018 Instruction Type:Patient Education How to access health informa tion online - Detail Indication:Non-smoker Start:05-May-2018 Instruction Type:Patient Education Patient Instructions Indication:Non-smoker Start:05-May-2018 Instruction Type:Provider Instructions for Treatment How to access health informa tion online Indication:BMI 29.0-29.9,adult Start:15-Jun-2017 Instruction Type:Patient Education How to access health informa tion online - Detail Indication:BMI 29.0-29.9,adult Start:15-Jun-2017 Instruction Type:Patient Education Patient Instructions Indication:BMI 29.0-29.9,adult Start:15-Jun-2017 Instruction Type:Provider Instructions for Treatment How to access health informa tion online Indication:Dizzy spells Start:09-Feb-2017 Instruction Type:Patient Education How to access health informa tion online - Detail Indication:Dizzy spells Start:09-Feb-2017 Instruction Type:Patient Education Patient Instructions Indication:Dizzy spells Start:09-Feb-2017 Instruction Type:Provider Instructions for Treatment How to access health informa tion online Indication:Non-smoker Start:18-Aug-2016 Instruction Type:Patient Education Patient Instructions Indication:Non-smoker Start:18-Aug-2016 Instruction Type:Provider Instructions for Treatment How to access health informa tion online Indication:Varicose vein Start:23-Jul-2015 Instruction Type:Patient Education How to access health informa tion online - Detail Indication:Varicose vein Start:23-Jul-2015 Instruction Type:Patient Education Patient Instructions Indication:Varicose vein Start:23-Jul-2015 Instruction Type:Provider Instructions for Treatment Patient Instructions Indication:Leg swelling Start:23-Aug-2014 Instruction Type:Provider Instructions for Treatment Name Dates Details How to access health informa tion online Indication:Hypertension, benign Start:18-Apr-2019 Instruction Type:Patient Education How to access health informa tion online - Detail Indication:Hypertension, benign Start:18-Apr-2019 Instruction Type:Patient Education Patient Instructions Indication:Hypertension, benign Start:18-Apr-2019 Instruction Type:Provider Instructions for Treatment obesity counseling Indication:Hypertension, benign Start:20-May-2018 Instruction Type:Provider Instructions for Treatment How to access health informa tion online Indication:Non-smoker Start:20-May-2018 Instruction Type:Patient Education How to access health informa tion online - Detail Indication:Non-smoker Start:20-May-2018 Instruction Type:Patient Education Patient Instructions Indication:Non-smoker Start:20-May-2018 Instruction Type:Provider Instructions for Treatment How to access health informa tion online Indication:Non-smoker Start:05-May-2018 Instruction Type:Patient Education How to access health informa tion online - Detail Indication:Non-smoker Start:05-May-2018 Instruction Type:Patient Education Patient Instructions Indication:Non-smoker Start:05-May-2018 Instruction Type:Provider Instructions for Treatment How to access health informa tion online Indication:BMI 29.0-29.9,adult Start:15-Jun-2017 Instruction Type:Patient Education How to access health informa tion online - Detail Indication:BMI 29.0-29.9,adult Start:15-Jun-2017 Instruction Type:Patient Education Patient Instructions Indication:BMI 29.0-29.9,adult Start:15-Jun-2017 Instruction Type:Provider Instructions for Treatment How to access health informa tion online Indication:Dizzy spells Start:09-Feb-2017 Instruction Type:Patient Education How to access health informa tion online - Detail Indication:Dizzy spells Start:09-Feb-2017 Instruction Type:Patient Education Patient Instructions Indication:Dizzy spells Start:09-Feb-2017 Instruction Type:Provider Instructions for Treatment How to access health informa tion online Indication:Non-smoker Start:18-Aug-2016 Instruction Type:Patient Education Patient Instructions Indication:Non-smoker Start:18-Aug-2016 Instruction Type:Provider Instructions for Treatment How to access health informa tion online Indication:Varicose vein Start:23-Jul-2015 Instruction Type:Patient Education How to access health informa tion online - Detail Indication:Varicose vein Start:23-Jul-2015 Instruction Type:Patient Education Patient Instructions Indication:Varicose vein Start:23-Jul-2015 Instruction Type:Provider Instructions for Treatment Patient Instructions Indication:Leg swelling Start:23-Aug-2014 Instruction Type:Provider Instructions for Treatment Summary Purpose Family History No Family History Records FoundNo Family History Records Found No data available for this section No data available for this section No Family History Records FoundNo Family History Records Found Advance Directives No Advanced Directives Records FoundNo Advanced Directives Records FoundNo Advanced Directives Records FoundNo Advanced Directives Records Found Additional Source Comments INFORMATION SOURCE (unrecogn ized section and content) DATE CREATED AUTHOR 08/07/2021 [facility] DATE CREATED AUTHOR AUTHOR'S ORGANIZ ATION [facility] DATE CREATED AUTHOR AUTHOR'S ORGANIZ ATION 02/16/2023 [facility] ([place]) DATE CREATED AUTHOR AUTHOR'S ORGANIZ ATION 01/14/2025 [facility] Patient Care team informatio n (unrecognized section and content) Team Status: Active Member Role/Relationship Status Dates Dr. Miranda Lama DO Family Provider Active Dr. Miranda Lama DO Primary Care Provider Active Team Status: Inactive Member Role/Relationship Status Dates Dr. Miranda Lama DO Primary Care Provider Active Start: January 09, 2025 End: January 09, 2025 FLORENTINO Waller Attending Provider Active St art: January 09, 2025 End: January 09, 2025 Goals (unrecognized section and content) Goals may be documented in a n alternate section FOR RECORDS PERTAINING TO PATIENTS WHO ARE OR HAVE BEEN ENROLLED IN A CHEMICAL DEPENDENCY/SUBSTANCEABUSE PROGRAM, SOME INFORMATION MAY BE OMITTED. This clinical summary was aggregated from multiple sources. Caution should be exercised in using it in the provision of clinical care. This summary normalizes information from multiple sources, and as a consequence, information in this document may materially change the coding, format and clinical context of patient data. In addition, data may be omitted in some cases. CLINICAL DECISIONS SHOULD BE BASED ON THE PRIMARY CLINICAL RECORDS. [facility] [employer] [facility]. provides no warranty or guarantee of the accuracy or completeness of information in this document.
[2025-03-30 23:19] LABS: AST(SGOT) 21 U/L (<=31); Alanine Aminotransfer ALT/SGPT 19 U/L (<=34); Albumin, Serum 4.7 g/dL (3.4-4.8); Alkaline Phosphatase 95 U/L (35-104); Anion Gap 16 (5-15); BUN 17 mg/dL (4-19); BUN/Creat Ratio 26.4 RATIO (10-20); Bilirubin, Direct 0.35 mg/dL (0.00-0.30); Calcium,Total 9.8 mg/dL (7.6-11.0); Carbon Dioxide 23.8 mmol/L (21.0-32.0); Chloride 96 mmol/L (98-108); Estimated Creatinine Clearance 50.89 ml/min (50-250); Globulin 3.6 g/dL (2.2-4.2); Glucose 167 mg/dL (70-99); Lipase 20 U/L (13-75); Magnesium 2.1 mg/dL (1.5-2.2); Potassium 3.6 mmol/L (3.3-5.1)
--- NOTE | 2025-03-31 00:18 | EDS_ITS ---
HPI History of Present Illness Chief Complaint: Nausea/Vomiting/Diarrhea Informant: patient and family Narrative Narrative: Patient is an 84-year-old female with past medical history of hypertension. She states that on Thursday she just did not feel well. She states that today she had bouts of nausea vomiting and diarrhea. She states that there was no blood or discoloration to either the emesis or stool. She states she had 5-7 bouts of both throughout the day but it seemed to stop around 4 PM. She denies any fevers chills or known sick contact. However with concern for an infection and dehydration she was brought in for evaluation [facility] Medical History (Updated 03/31/25 @ 04:[address] Josef Yadav, DO) Hypertension Home Medications ?Medication ?Instructions ?Recorded ?Last Taken ?Type dicyclomine 20 mg tablet 20 mg PO TID PRN abdominal 0 03/31/25 Unknown Rx bloating/spasm #21 tabs ondansetron 4 mg disintegrating 4 mg PO TID PRN nausea and 03/31/25 Unknown Rx tablet vomiting #21 tabs Allergy/AdvReac Type Severity Reaction Status Date / Time Penicillins AdvReac Other Verified 03/30/25 21:51 tetanus toxoid, adsorbed AdvReac Swelling Verified 03/30/25 21:51 Surgical History (Updated 03/30/25 @ 22:19 by Luz Coto) History of appendectomy History of cholecystectomy H/O: hysterectomy History of back surgery Social History Smoking Status: Former smoker [facility] ED Constitutional Constitutional ED: Reports chills, fever(s) and subjective Eyes Eyes: Denies change in vision ENT ENT ED: Denies sore throat Cardiovascular Cardiovascular: Denies chest pain Respiratory/Chest Respiratory/Chest: Denies cough or dyspnea Gastrointestinal Gastrointestinal: Reports abdominal pain, diarrhea, nausea and vomiting Genitourinary Genitourinary ED: Denies dysuria Musculoskeletal Musculoskeletal: Reports myalgias Integumentary Denies rash Neurologic Neurologic: Denies headache(s) Hematologic/Lymphatic Hematologic/Lymphatic: Denies easy bleeding or easy bruising EXAM Physical Exam Const Vital Signs: 03/30/25 21:48 03/31/25 01:15 Temperature 97.7 F L 97.7 F L Temperature Source Oral Pulse Rate 85 80 Respiratory Rate 18 18 Blood Pressure 211/95 H 152/74 H Blood Pressure Mean 133 100 Pulse Ox 95 95 Positive well nourished and well developed General Appearance ED: well developed; Negative for pallor HEENT HEENT Narrative: Normocephalic atraumatic No tongue or lip swelling no oral lesions no airway edema or compromise; no secondary findings in the posterior pharynx to suggest infection Mucous membranes are mildly dry and tacky Eyes PERRL and EOMs intact bilaterally General Eye ED: Negative for scleral icterus Neck supple Neck Narrative: No nuchal rigidity or meningeal signs Resp normal respiratory effort and clear to auscultation bilaterally Cardio regular rate and regular rhythm Rate: other Other Details: Radial and carotid pulses are equal and symmetric GI non-tender, non-distended and no masses GI Narrative: Abdomen is soft and nondistended with hyperactive bowel sounds. No tenderness noted upon palpation. No voluntary guarding or rigidity or pulsatile mass. No peritoneal signs Auscultation: hyperactive bowel sounds Palpation: soft Extremity normal to inspection Neuro oriented x3, CN's II-XII intact bilaterally and no sensory deficits noted Sensorium / Orientation: alert Motor Exam: strength 5/5 throughout Psych mental status grossly normal Skin no rashes or lesions noted Skin Narrative: Skin turgor is mildly increased General Skin Exam: Negative for jaundice or pallor MDM MDM MDM Narrative Medical decision making narrative: Patient arrived to the ER hypertensive but has a past medical history of this and otherwise with stable vitals. She reported 1 day of nausea vomiting and diarrhea. However her last bout of symptoms was at 4 PM and it is now approximately 6 hours later. Her physical exam does show changes concerning for dehydration and therefore to ensure there is no signs of acute kidney injury or electrolyte abnormality basic labs will be obtained. To rule out atypical presentation for pancreatitis or biliary colic/acute cholecystitis liver enzymes were added as well. Labs revealed no clinically significant finding. Patient had no further bouts of vomiting or diarrhea while in the ER. She also reported there was no recent antibiotic use or travel prior to the diarrhea beginning going against an infectious process such as C. difficile or E. coli. Upon reevaluation the patient reports feeling better after IV hydration and Zofran and Bentyl. Her abdomen remains soft and nonsurgical. Therefore as her history and exam/workup indicate this was most likely a viral infection and overall symptoms are improving as well as vital signs there is no need for further intervention or imaging and she is otherwise safe for discharge History & Record Review Discussion w/independent historian: Patient and Family Lab Data Attestation: I reviewed the patient's lab results. Labs: Laboratory Results - last 24 hr 03/30/25 22:27 WBC 11.1 H RBC 4.72 Hgb 14.0 Hct 41.5 MCV 87.9 MCH 29.7 MCHC 33.7 RDW Std Deviation 45.4 H RDW Coeff of Kush 14.1 Plt Count 222 MPV 10.8 Immature Gran % (Auto) 0.700 Neut % (Auto) 90.8 H Lymph % (Auto) 6.9 L [place] % (Auto) 1.3 Eos % (Auto) 0.0 Baso % (Auto) 0.3 Absolute Neuts (auto) 10.1 H Absolute Lymphs (auto) 0.76 L Nucleated RBC % 0 Sodium 135 Potassium 3.6 Chloride 96 L Carbon Dioxide 23.8 Anion Gap 16 H BUN 17 Creatinine 0.64 L Estim Creat Clear Calc 50.89 Est GFR (MDRD) Non-Af 88 BUN/Creatinine Ratio 26.4 H Glucose 167 H Calcium 9.8 Magnesium 2.1 Total Bilirubin 0.96 Direct Bilirubin 0.35 H AST 21 ALT 19 Alkaline Phosphatase 95 Total Protein 8.3 Albumin 4.7 Globulin 3.6 Lipase 20 Discharge Plan Triage Chief Complaint: Nausea/Vomiting/Diarrhea ED Provider: Josef Yadav Dx/Rx/DC Orders Clinical Impression: Nausea vomiting and diarrhea, Dehydration, Hypertension Instructions: ED Gastroenteritis, Viral (Adult) Prescriptions: New ondansetron 4 mg tablet,disintegrating 4 mg PO TID PRN (Reason: nausea and vomiting) Qty: 21 0RF dicyclomine 20 mg tablet 20 mg PO TID PRN (Reason: abdominal bloating/spasm) Qty: 21 0RF Primary Care Provider: Heather Will Referrals: Heather Will, [facility] [Primary Care Provider, Family Practice] Activity Restrictions/Additional Instructions: Your history exam and workup is consistent with a viral stomach infection. This can last anywhere from 1 day to 10 days with the average being 3. Please keep yourself well-hydrated and take the prescribed medication as directed to help control symptoms. Return to the ER should you have any further concerns Print Language: German Disposition Disposition: Home, Self Care Discharge Date/Time: 03/31/25 01:16
[2025-03-31 01:15] VITALS: BP 152/74; PULSE 80; RESP 18; TEMP 36.5; O2SAT 95
== END 2025-03-31 01:16 | disposition home or self-care (01) ==
PROVIDERS: Emergency Provider Emergency Medicine; PCP Nurse Practitioner Family; Visit Provider Emergency Medicine
DX: R11.2 Nausea with vomiting, unspecified (principal); Z87.891 Personal history of nicotine dependence; I10 Essential (primary) hypertension; E86.0 Dehydration; R19.7 Diarrhea, unspecified; Z90.49 Acquired absence of other specified parts of digestive tract; Z90.710 Acquired absence of both cervix and uterus; M79.10 Myalgia, unspecified site
CPT/HCPCS: 80048; 80076; 83690; 83735; 85025; 96361; 96374; 99283; A4216; J2405